=== PATIENT | female | born 1965 | race Caucasian/White ===

== ENCOUNTER 2019-03-31 08:24 | Outpatient (CLI) | payer MEDICARE, MEDICAID, SELFPAY | END 2019-03-31 08:25 | disposition home or self-care (01) | LOC: ONCMED 08:29 | PROVIDERS: Family Provider Family Medicine; PCP Family Medicine; Visit Provider Internal Medicine Medical Oncology | DX: Z45.2 Encounter for adjustment and management of vascular access device (principal) | CPT/HCPCS: 36593; 96374; J2997 ==

== ENCOUNTER 2019-04-30 07:51 | Outpatient (CLI) | payer MEDICARE, MEDICAID, SELFPAY | END 2019-04-30 07:52 | disposition home or self-care (01) | LOC: ONCMED 07:55 | PROVIDERS: Family Provider Family Medicine; PCP Family Medicine; Visit Provider Internal Medicine Medical Oncology | DX: Z45.2 Encounter for adjustment and management of vascular access device (principal) | CPT/HCPCS: 96523 ==

== ENCOUNTER 2019-05-28 08:08 | Outpatient (CLI) | payer MEDICARE, MEDICAID, SELFPAY ==
[2019-05-28] MEDS: alteplase 1 mg/mL SDV 2 mL 2 MG INTRACATH (09:25)
== END 2019-05-28 08:09 | disposition home or self-care (01) ==
LOC: ONCMED 08:16
PROVIDERS: Family Provider Family Medicine; PCP Family Medicine; Visit Provider Internal Medicine Medical Oncology
DX: Z45.2 Encounter for adjustment and management of vascular access device (principal)
CPT/HCPCS: 36593; 96374; 96523; J2997

== ENCOUNTER 2019-07-02 08:29 | Outpatient (CLI) | payer MEDICARE, MEDICAID, SELFPAY | END 2019-07-02 08:30 | disposition home or self-care (01) | LOC: ONCMED 08:29 | PROVIDERS: Family Provider Family Medicine; PCP Family Medicine; Visit Provider Internal Medicine Medical Oncology | DX: Z45.2 Encounter for adjustment and management of vascular access device (principal) | CPT/HCPCS: 96523 ==

== ENCOUNTER 2019-07-30 08:06 | Outpatient (CLI) | payer MEDICARE, MEDICAID, SELFPAY | END 2019-07-30 08:07 | disposition home or self-care (01) | LOC: ONCMED 08:09 | PROVIDERS: PCP Family Medicine; Visit Provider Internal Medicine Medical Oncology | DX: Z45.2 Encounter for adjustment and management of vascular access device (principal); C49.22 Malignant neoplasm of connective and soft tissue of left lower limb, including hip | CPT/HCPCS: 96523 ==

== ENCOUNTER 2019-08-28 08:21 | Outpatient (CLI) | payer MEDICARE, MEDICAID, SELFPAY | END 2019-08-28 08:22 | disposition home or self-care (01) | LOC: ONCMED 08:26 | PROVIDERS: PCP Family Medicine; Visit Provider Internal Medicine Medical Oncology | DX: Z45.2 Encounter for adjustment and management of vascular access device (principal); C49.22 Malignant neoplasm of connective and soft tissue of left lower limb, including hip | CPT/HCPCS: 96523 ==

== ENCOUNTER 2019-09-29 08:22 | Outpatient (CLI) | payer MEDICARE, MEDICAID, SELFPAY | END 2019-09-29 08:23 | disposition home or self-care (01) | LOC: ONCMED 08:25 | PROVIDERS: PCP Family Medicine; Visit Provider Internal Medicine Medical Oncology | DX: C49.22 Malignant neoplasm of connective and soft tissue of left lower limb, including hip (principal); D64.81 Anemia due to antineoplastic chemotherapy; D70.1 Agranulocytosis secondary to cancer chemotherapy; T45.1X5A Adverse effect of antineoplastic and immunosuppressive drugs, initial encounter | CPT/HCPCS: 36593; 96374; J2997 ==

== ENCOUNTER 2019-10-30 08:08 | Outpatient (CLI) | payer MEDICARE, MEDICAID, SELFPAY | END 2019-10-30 08:09 | disposition home or self-care (01) | LOC: ONCMED 08:13 | PROVIDERS: PCP Family Medicine; Visit Provider Internal Medicine Medical Oncology | DX: Z45.2 Encounter for adjustment and management of vascular access device (principal) | CPT/HCPCS: 96523 ==

== ENCOUNTER 2019-12-03 07:42 | Outpatient (CLI) | payer MEDICARE, MEDICAID, SELFPAY ==
[2019-12-03 08:30] LABS: Basophils % 0.5 %; Eosinophils # 0.1 10^3/uL (0.0-0.8); Eosinophils % 1.9 %; Hemoglobin 13.1 g/dL (11.5-15.3); Lymphocytes # 2.4 10^3/uL (0.8-4.8); Lymphocytes % 37.9 %; Mean Corpuscular HGB Conc 32.8 g/dL (30.0-36.0); Mean Corpuscular Hemoglobin 33.2 pg (28.0-34.0); Mean Corpuscular Volume 101.5 fL (81-99); Mean Platelet Volume 9.5 fL (7.4-10.4); Monocytes # 0.5 10^3/uL (0.2-0.9); Monocytes % 7.5 %; Neutrophils # 3.26 10^3/uL (1.8-7.7); Neutrophils % 51.7 %; Nucleated Red Blood Cells % 0 %; Platelet Count 211 10^3/cmm (130-400); Red Blood Count 3.94 10^6/uL (4.1-5.3); Red Cell Distribution Width 13.2 % (12.1-15.1); White Blood Count 6.3 10^3/uL (4.0-10.0)
[2019-12-03 09:01] LABS: Alanine Aminotransferase 15 U/L (0-33); Albumin Level 4.1 g/dL (3.5-5.2); Alkaline Phosphatase 82 IU/L (35-105); Anion Gap 12.8 (5-19); Aspartate Amino Transferase 16 U/L (0-32); Blood Urea Nitrogen 17 mg/dL (6-20); Calcium 8.9 mg/dL (8.5-10.5); Carbon Dioxide 26 mmol/L (22-29); Chloride 104 mmol/L (98-107); Globulin 2.6 g/dL (1.3-4.6); Glomerular Filtration Rate 104.6 mL/min (90-130); Glucose 140 mg/dL (65-115); Osmolality Calculated 287 mOsm/kg (285-295); Potassium 3.8 mmol/L (3.5-5.1); Sodium 139 mmol/L (136-145); Total Bilirubin 0.2 mg/dL (0.15-1.2); Total Protein 6.7 g/dL (6.6-8.7)
--- NOTE | 2019-12-06 11:38 | ONC FU_ITS ---
Dr. Boo Patient Follow-Up Note Patient: Naya Ferguson Unit #: [id number]: 1965 Dicatated By: Surya Boo M.D.Date of Visit:Dec 03, 2019 Onc Med Follow-up/Prog Note Chief Complaint: Breast cancer/Walls sarcoma. 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 She had presented in March 2016 with a lump in her left groin area. She had first become aware of it sometime around the beginning of January. An ultrasound on 03/29/2016 showed an enlarging solid soft tissue nodule in the left groin measuring 5.2 x 3.3 cm. Only a single mass was identified. The appearance was felt to be consistent with hematoma, abnormal lymph node, or thrombosed pseudoaneurysm. She was referred to Dr. Brown. She underwent excisional biopsy of the inguinal mass on 04/12/2016. 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 A staging PET/CT on 04/21/2016 showed evidence of a 7.3 x 5.4 cm seroma in the left inguinal region with minimal postoperative inflammatory FDG uptake. There were no sites of pathologic adenopathy or other metastatic disease identified. MRI of the brain was negative for metastatic disease. She was referred to [facility] for second opinion evaluation. She was seen there by Dr. Sushila Tovar. Their review of the pathology also was felt to be consistent with Walls sarcoma/primitive neuroectodermal tumor. Restaging scans showed no definite evidence of recurrence, but there were findings suspicious for abscess at the biopsy site. She was recommended to undergo chemotherapy with vincristine, doxorubicin, and cyclophosphamide alternating with ifosfamide/etoposide for 10 cycles followed by vincristine, dactinomycin, and cyclophosphamide alternating with ifosfamide/etoposide for an additional 7 cycles, total treatment course to be 17 cycles. It was also recommended that she receive upfront dexrazoxane prophylaxis due to her previous anthracycline therapy. Her baseline echocardiogram was normal with estimated ejection fraction at 60%. She then underwent placement of Port-A-Cath venous access device. She began cycle 1 of chemotherapy with Vincristine, doxorubicin and cyclophosphamide on 05/23/2016. She did receive Neulasta prophylactically. Her treatment was complicated by neutropenia and dehydration, but she recovered uneventfully. In the meantime, she had further staging evaluation with MRI of the abdomen/pelvis on 05/31/2016. There were postsurgical changes noted in the left groin. There was no adenopathy and no evidence of other metastatic disease. On 06/11/2016 she began her cycle 2 chemotherapy with 5 days of ifosfamide/mesna and etoposide. It was again complicated by weakness/fatigue, but she otherwise tolerated it well. She received her cycle 3 chemotherapy on 07/02/2016. She was again weak and tired for several days after the treatment and she again became severely neutropenic, but she recovered uneventfully. She also developed significant anemia, hemoglobin dropping to 8.1 g. She did not require transfusion. She was able to continue with her cycle 4 chemotherapy on schedule on 07/23/2016, with cycle 5 on 08/13/2016, and with cycle 6 on 09/03/2016. Restaging CT scans of the chest, abdomen, and pelvis at [facility] on 09/14/2016 showed no evidence of metastatic disease. On 09/26/2016 she underwent radical resection of the left groin. Pathology showed no residual sarcoma. She had a follow-up visit at [facility] on 10/08/2016 and at that point she was released to continue with her 7th cycle of chemotherapy. We had a delay in restarting her treatment due to the unavailability of Zinecard. After further discussion with her oncologist at [facility], we continued her treatment without Zinecard and with Adriamycin administered by 72-hour infusion. She began cycle 7 on 10/30/2016. She had no adverse reactions to the infusion, and she received her cycle 8 treatment on schedule. She began cycle 9 on 12/10/2016. She again experienced no adverse effects with the Adriamycin infusion. However, at day 8 she was severely neutropenic with a total of white blood cell count of 500, ANC 0. Her hemoglobin at that point had dropped to 7.3 g. She received a transfusion of 2 U of irradiated packed red blood cells on 12/18/2016. Following day she presented to the emergency room with severe weakness, fever, and muscle aching. Her ANC was still 0. Her hemoglobin had dropped to 5.4 g. There was no laboratory evidence for hemolysis. She was admitted to the hospital and started broad-spectrum antibiotic coverage. She was transfused an additional 2 U of irradiated packed red blood cells. Her blood cultures remain negative, but her serology for influenza B antigen was positive. Her hemoglobin then stabilized and she had gradual recovery of her neutrophils. She was discharged on 12/22/2016. She continued with her cycle 10 chemotherapy on 01/07/2017. Beginning with cycle 11, she had a planned change in her regimen, substituting dactinomycin for the Adriamycin. She then continued her treatment on schedule, though she continued to have fatigue and some nausea with the chemotherapy. Her treatment also was complicated by anemia, moderately severe neutropenia, and moderate to severe thrombocytopenia. She required transfusion on multiple occasions, at least once or twice each month. She had no further episodes of neutropenic fever, and she had no bleeding complications with the thrombocytopenia. She began her cycle 16 treatment with ifosfamide/mesna and etoposide on 06/03/2017. Her subsequent interim blood counts again showed severe pancytopenia, requiring transfusion of packed red blood cells on 06/11/2017 and on 06/18/2017. She also received a single donor platelet pheresis on 06/15/2017. She was unable to continue with her 17th and final cycle of chemotherapy with VAC on 07/16/2017. She was then followed on observation/expectant management. Her breast cancer was diagnosed in 2006. She had presented at that time with a lump in her left breast. Mammogram showed diffuse increased density in the parenchyma of the left breast throughout the upper outer quadrant. There was no discrete mass noted in that area, but towards the axillary tail there appeared to be a cluster of enlarged lymph nodes which measured approximately 3.6 cm in diameter. There were additional nodes measuring 1.6 and 1.8 cm which were incompletely included at the margin of that study. She underwent excisional biopsy on 06/27/06. Pathology showed grade 2 infiltrating ductal carcinoma which measured 4.2 x 3.1 cm. There was involvement in multiple margins. The tumor was ER positive at 37% and IN positive at 16%. It was negative for overexpression of HER-2/afsaneh by IHC and by FISH. She was then given chemotherapy with 4 cycles of Adriamycin/cyclophosphamide and 4 cycles of Taxotere. She completed chemotherapy in November of 2006. She underwent left modified radical mastectomy in January of 2007. Pathology showed just a few residual foci of infiltrating ductal carcinoma involving lymphatic spaces within the breast, but there was involvement in 3 of 21 axillary lymph nodes. She was given prophylactic chest wall radiation, which she completed in April of 2007 to a total dose of 6000 cGy. She completed 5 years of adjuvant hormonal therapy with tamoxifen in February of 2012. Thus far during followup there has been no evidence of recurrence. Her other medical illnesses include GERD, degenerative arthritis, and depression. She has a history of smoking 1/2 pack of cigarettes daily. She quit smoking in 2004. INTERIM HISTORY: I had seen her for a follow-up visit on 05/28/2018. At that time she had multiple complaints, including pain in the left groin area radiating down the left leg. She also been having frequent headaches. She complained of severe fatigue and poor appetite. Her laboratory studies were unremarkable. Her left hip x-ray showed a subtle lucency overlying the inferior acetabulum and femoral head. She had further evaluation with MRI of the pelvis on 06/11/2018. It showed nonspecific left medial acetabular 6 mm subcortical focal marrow signal abnormality and enhancement of uncertain etiology/significance. There were no definite findings of recurrent or metastatic disease in the pelvis. There was suspected left posterior acetabular labral degeneration with possible tear or fraying. In the meantime, I had opted to treat her empirically with dexamethasone, initially at 4 mg twice a day. During followup she was feeling better. She was then able to gradually taper off dexamethasone. She continued observation/expectant management for the Walls sarcoma. She had follow-up at [facility] in August. Her CT abdomen/pelvis from 08/27/2019 showed no evidence of metastatic disease. She is seen for a scheduled visit. She has been feeling pretty good generally, though lately she has been sleeping more. She attributes it to the hot weather. Her ECOG score is 1. She has good appetite. She has not had fever. She does report having hot flashes and sweating. Recently she has had throbbing pain in her right jaw which comes and goes. She has had occasional sharp pain in her left chest wall. She has occasional shooting pain in the left arm. She has pain in her hands and feet that seems to correlate with weather changes. Last week her right knee locked up and then popped. She has had no problems with it since then. She continues, though, to complain of whole body pain . She has headache which comes and goes. She has no focal neurologic symptoms. Medications: Allergy 1 (4 mg) Tablet Oral daily, Dexilant 1 Capsule (of 20 mg) Capsule Delayed Release Oral daily, Famotidine 1 (20 mg) Tablet Oral b.i.d., Ferrous Sulfate 1 Tablet (of 325 (65 fe) mg) Oral daily, Glucosamine 1 Tablet Oral daily, Hydrocodone-Acetaminophen 1 - 2 Tablet (of 10-325 mg) Oral four times a day PRN, Ibuprofen Tablet Oral PRN, Potassium Chloride ER 1 Capsule (of 20 meq) Capsule, controlled release Oral daily, Simvastatin 1 Tablet (of 20 mg) Oral daily, Venlafaxine HCl 1 Tablet (of 150 mg) Oral daily, Zofran 1 (4 mg) Tablet Oral q 8 hours PRN Allergies: Acyclovir and Alcohol base liquids. Review of Systems: Constitutional - She has been sleeping more lately, but that she attributes to the heat. Appetite is good and weight is stable. No fever. She has hot flashes and sweating. ECOG score is 1, ENMT - She has sinus congestion/drainage. No mouth sores, but recently she has been having throbbing pain in her right jaw which comes and goes. No sore throat or difficulty swallowing, Hematologic/Lymphatic - No abnormal bruising or bleeding, Respiratory - No shortness of breath. No cough or hemoptysis. She has had occasional sharp pain in the left chest wall, Cardiovascular - No angina pain. No palpitations, Gastrointestinal - No nausea or vomiting. She occasionally has heartburn. No diarrhea or constipation. No blood in the stool or black stools, Genitourinary (F) - No dysuria or hematuria. No urinary frequency. No urgency or incontinence, Musculoskeletal - She has occasional shooting pain in her left arm. She has pain in her hands and feet which seems to change with the weather. Recently her right knee locked up and popped. She also has chronic whole body pain , Integumentary - No skin rash, Neurologic - She has headaches, which come and go. She occasionally has lightheadedness. She has numbness/tingling, which comes and goes. No other focal neurologic symptoms, Psychiatric - She has anxiety/depression. She does not sleep well. Vital Signs: Performed on Dec 03, 2019 09:24 Height - 68.00 in Weight - 192.4 lbs (LOW) BSA - 2.01 sq.m BMI - 29.25 Temperature - 96.6 F (LOW) Pulse - 68 /min Respiration - 16 /min BP - 169/86 mm(hg) (HIGH) O2 Sat - 95 % (LOW) Pain - 7 Physical Examination: Constitutional - She looks pretty good generally, Eyes - Sclerae nonicteric. Conjunctivae clear, ENMT - No lesions noted in the oral cavity, Hematologic/Lymphatic - No cervical or clavicular adenopathy, Respiratory - Lungs are clear with good air movement bilaterally, Cardiovascular - Heart rhythm is regular. There is a II/ systolic murmur. There is no gallop or rub noted, Breasts - There are no chest wall lesions noted. There is no axillary adenopathy, Abdomen - Mildly distended but soft. Liver and spleen are not enlarged. There is no abdominal mass or ascites noted. There is no inguinal adenopathy, Extremities - No edema, Neurologic - No focal neurologic deficits noted. Lab/Imaging: Test performed on Dec 03, 2019 08:02 Sodium 139 mmol/L Potassium 3.8 mmol/L Chloride 104 mmol/L CO2 26 mmol/L Anion Gap 12.8 BUN 17 mg/dL Creatinine 0.6 mg/dL Cr Clearance (Est) 149.39 mL/min eGFR 104.6 mL/min Glucose 140 mg/dL Calcium 8.9 mg/dL Protein, Total 6.7 g/dL Albumin 4.1 g/dL Globulin 2.6 g/dL Bilirubin, Total 0.2 mg/dL ALT (SGPT) 15 U/L AST (SGOT) 16 U/L Alkaline Phosphatase 82 IU/L WBC 6.3 10 3/uL RBC 3.94 10 6/uL HGB 13.1 g/dL HCT 40.0 % MCV 101.5 fL MCH 33.2 pg MCHC 32.8 g/dL RDW 13.2 % Platelet Count 211 10 3/cmm MPV 9.5 fL Neutrophils 3.26 10 3/uL Lymphocytes 2.4 10 3/uL Monocytes 0.5 10 3/uL Eosinophils 0.1 10 3/uL Basophils 0.0 10 3/uL Neutrophil % 51.7 % Lymphocyte % 37.9 % Monocyte % 7.5 % Eosinophil % 1.9 % Basophils % 0.5 % NRBC % 0 % Impression: 1. Patient with Walls sarcoma/primitive neuroectodermal tumor diagnosed by excisional biopsy of left inguinal mass on 04/12/2016. Her disease appears to be stage IIA (T1b, N0, M0), with no other sites of involvement by clinical evaluation. She is currently undergoing chemotherapy per recommendations from Dr. Sushila Tovar at [facility]. 2. She has a prior history of grade 2 infiltrating ductal carcinoma the left breast, stage IIB, ER/ IN positive and HER-2/afsaneh negative. 3. Her treatment included excisional biopsy followed by adjuvant chemotherapy with 4 cycles of Adriamycin/cyclophosphamide and 4 cycles of Taxotere, completed in November 2006. She completed prophylactic chest wall radiation following left modified radical mastectomy in January 2007. She completed 5 years of hormonal therapy with tamoxifen in February 2012. Thus far during followup there has been no evidence of recurrence of the breast cancer. Her other medical illness include: 4. GERD. 5. Degenerative arthritis. 6. Depression. She began her 6th cycle of chemotherapy on 09/03/2016. Restaging CT scans of the chest, abdomen, and pelvis on 09/14/2016 showed no evidence of metastatic disease. On 09/26/2016 she underwent radical resection of the left groin area. Pathology showed no residual sarcoma. She had an uneventful recovery from her surgery. Her further chemotherapy was delayed due to unavailability of Zinecard. She began her 7th cycle treatment on 10/30/2016 with the Adriamycin administered by 72-hour infusion. She was then able to continue her further chemotherapy on schedule, but with a planned substitution of actinomycin D for the Adriamycin beginning with cycle 11. Her treatment was complicated by pancytopenia, requiring transfusions of PRBC and/or platelets on multiple occasions. She completed her 17th and final cycle of chemotherapy on 07/16/2017. At her follow-up at [facility] in April 2018 there is reportedly no evidence of recurrence of the Walls sarcoma. She was seen here on 05/28/2018 with complaints of severe pain in the left hip area. She also was having frequent headaches, and she just wasn't feeling good generally. X-ray of the left hip and subsequent MRI of the pelvis showed some nonspecific findings, but no evidence of recurrence of her sarcoma. She had symptomatic improvement on empiric steroid therapy with dexamethasone. During subsequent follow-up she was able to taper off and discontinue the dexamethasone. She has continued on observation/expectant management for the Walls sarcoma. She has continued to have fatigue and musculoskeletal pain following completion of her chemotherapy. There has beeh no evidence, though, of recurrence of the Walls sarcoma, and her overall clincal status appears stable. Plan: She remains on observation/expectant management. If her jaw pain persists I will get x-rays of the mandible. I will otherwise just plan a follow-up visit in February, at which time she will be due for surveillance CT scans. Signed By: Surya Boo M.D. <<Signature on File>>
== END 2019-12-03 07:43 | disposition home or self-care (01) ==
LOC: ONCMED 07:45
PROVIDERS: PCP Family Medicine; Visit Provider Internal Medicine Medical Oncology
DX: Z08 Encounter for follow-up examination after completed treatment for malignant neoplasm (principal); Z85.830 Personal history of malignant neoplasm of bone; Z85.3 Personal history of malignant neoplasm of breast; R68.84 Jaw pain; R53.83 Other fatigue; M79.18 Myalgia, other site; K21.9 Gastro-esophageal reflux disease without esophagitis; M19.90 Unspecified osteoarthritis, unspecified site; F32.9 Major depressive disorder, single episode, unspecified; Z92.21 Personal history of antineoplastic chemotherapy
CPT/HCPCS: 36591; 80053; 85025; G0463

== ENCOUNTER → 2019-12-15 13:20 | Outpatient (BNVA) | payer MEDICARE, MEDICAID, SELFPAY | PROVIDERS: PCP Family Medicine; Visit Provider Nurse Practitioner Family | DX: Z23 Encounter for immunization (principal); Z20.828 Contact with and (suspected) exposure to other viral communicable diseases | CPT/HCPCS: 87635 ==

== ENCOUNTER 2020-01-01 06:53 | Outpatient (CLI) | payer MEDICARE, MEDICAID, SELFPAY | END 2020-01-01 06:54 | disposition home or self-care (01) | LOC: ONCMED 06:55 | PROVIDERS: PCP Nurse Practitioner Family; Visit Provider Internal Medicine Medical Oncology | DX: Z45.2 Encounter for adjustment and management of vascular access device (principal) | CPT/HCPCS: 96523 ==

== ENCOUNTER 2020-01-26 06:09 | Outpatient (CLI) | payer MEDICARE, MEDICAID, SELFPAY | END 2020-01-26 06:10 | disposition home or self-care (01) | LOC: ONCMED 06:11 | PROVIDERS: PCP Nurse Practitioner Family; Visit Provider Nurse Practitioner | DX: Z45.2 Encounter for adjustment and management of vascular access device (principal) | CPT/HCPCS: 96523 ==

== ENCOUNTER 2020-02-25 08:13 | Outpatient (CLI) | payer MEDICARE, MEDICAID, SELFPAY | END 2020-02-25 08:14 | disposition home or self-care (01) | PROVIDERS: PCP Nurse Practitioner Family; Visit Provider Nurse Practitioner | DX: Z45.2 Encounter for adjustment and management of vascular access device (principal) | CPT/HCPCS: 96523 ==

== ENCOUNTER 2020-03-04 11:05 | Outpatient (CLI) | payer MEDICARE, MEDICAID, SELFPAY ==
--- NOTE | 2020-03-04 11:16 | CT_ITS ---
WS: [id number] CT CHEST, ABDOMEN, AND PELVIS TECHNIQUE: Contrast-enhanced CT of the chest, abdomen, and pelvis with coronal and sagittal reformatt ed images. CLINICAL INFORMATION: BREAST CANCER, MONTANEZ SARCOMA COMPARISON: None. DLP: 2501.[address] scans at [facility] use at least one of these dose optimization techniques: automat ed exposure control; mA and/or kV adjustment per patient size (includes targeted exams where dose is matched to clinical indication); or iterative reconstruction. CT CHEST: Both lungs are well aerated. No acute pulmonary infiltrates. No suspicious pulmonary parenchymal opac ities. No focal pneumonia or pleural fluid. No evidence of metastatic disease in the chest. No medias tinal or hilar lymphadenopathy. No axillary lymphadenopathy. Normal caliber thoracic aorta. Proximal main pulmonary arteries are normal. Stable sclerotic focus T6 vertebral body. CT ABDOMEN AND PELVIS: Diffuse fatty infiltration of the liver. Normal portal vein and splenic vein. Normal gallbladder. Nor mal GE junction. Normal spleen. Adrenal glands are normal. Normal renal parenchymal enhancement. No h ydronephrosis. Normal caliber abdominal aorta. No periaortic or retroperitoneal lymphadenopathy. No pelvic lymphaden opathy. Surgical clips in the left groin. No evidence of small or large bowel obstruction. Normal sig moid colon. CT/CT chest abd pel w con* IMPRESSION: 1. No evidence of metastatic disease in the chest abdomen or pelvis. 2. Both lungs are well aerated. 3. Mild diffuse fatty infiltration liver. 4. Stable sclerotic lesion in the T6 vertebral body unchanged.
[2020-03-04] MEDS: iohexol 300 mg/mL 50 mL Btl PO (13:12)
[2020-03-04] MEDS: iohexol 300 mg/mL 100 mL Btl IV (13:16)
== END 2020-03-04 11:06 | disposition home or self-care (01) ==
LOC: RADWPI 11:09
PROVIDERS: PCP Nurse Practitioner Family; Visit Provider Internal Medicine Medical Oncology
DX: C50.412 Malignant neoplasm of upper-outer quadrant of left female breast (principal); C41.9 Malignant neoplasm of bone and articular cartilage, unspecified; K76.0 Fatty (change of) liver, not elsewhere classified
CPT/HCPCS: 71260; 74177; Q9967

== ENCOUNTER → 2020-03-07 14:58 | Outpatient (BNVA) | payer MEDICARE, MEDICAID, SELFPAY | PROVIDERS: PCP Nurse Practitioner Family; Visit Provider Family Medicine | DX: M25.511 Pain in right shoulder (principal) | CPT/HCPCS: 73030 ==

== ENCOUNTER 2020-03-14 06:00 | Outpatient (CLI) | payer MEDICARE, MEDICAID, SELFPAY ==
[2020-03-14 11:01] LABS: Basophils % 0.3 %; Eosinophils # 0.1 10^3/uL (0.0-0.8); Eosinophils % 1.1 %; Hematocrit 40.3 % (37.0-47.0); Hemoglobin 13.4 g/dL (11.5-15.3); Lymphocytes # 2.2 10^3/uL (0.8-4.8); Lymphocytes % 31.9 %; Mean Corpuscular HGB Conc 33.3 g/dL (30.0-36.0); Mean Corpuscular Hemoglobin 33.5 pg (28.0-34.0); Mean Corpuscular Volume 100.8 fL (81-99); Mean Platelet Volume 9.6 fL (7.4-10.4); Monocytes # 0.5 10^3/uL (0.2-0.9); Monocytes % 6.6 %; Neutrophils # 4.17 10^3/uL (1.8-7.7); Neutrophils % 59.8 %; Nucleated Red Blood Cells % 0 %; Platelet Count 237 10^3/cmm (130-400); Red Cell Distribution Width 12.8 % (12.1-15.1)
[2020-03-14 11:08] LABS: Alanine Aminotransferase 14 U/L (0-33); Albumin Level 4.2 g/dL (3.5-5.2); Alkaline Phosphatase 79 IU/L (35-105); Anion Gap 12.9 (5-19); Aspartate Amino Transferase 15 U/L (0-32); Blood Urea Nitrogen 17 mg/dL (6-20); Calcium 9.1 mg/dL (8.5-10.5); Carbon Dioxide 26 mmol/L (22-29); Chloride 104 mmol/L (98-107); Globulin 2.3 g/dL (1.3-4.6); Glomerular Filtration Rate 104.6 mL/min (90-130); Glucose 102 mg/dL (65-115); Osmolality Calculated 290 mOsm/kg (285-295); Potassium 3.9 mmol/L (3.5-5.1); Sodium 139 mmol/L (136-145); Total Bilirubin 0.2 mg/dL (0.15-1.2); Total Protein 6.5 g/dL (6.6-8.7)
--- NOTE | 2020-03-17 08:39 | ONC FU_ITS ---
Dr. Boo Patient Follow-Up Note Patient: Naya Ferguson Unit #: [id number]: 1965 Dicatated By: Surya Boo M.D.Date of Visit:Mar 14, 2020 Onc Med Follow-up/Prog Note Chief Complaint: Breast cancer/Walls sarcoma. 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 She had presented in March 2016 with a lump in her left groin area. She had first become aware of it sometime around the beginning of January. An ultrasound on 03/29/2016 showed an enlarging solid soft tissue nodule in the left groin measuring 5.2 x 3.3 cm. Only a single mass was identified. The appearance was felt to be consistent with hematoma, abnormal lymph node, or thrombosed pseudoaneurysm. She was referred to Dr. Brown. She underwent excisional biopsy of the inguinal mass on 04/12/2016. 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 A staging PET/CT on 04/21/2016 showed evidence of a 7.3 x 5.4 cm seroma in the left inguinal region with minimal postoperative inflammatory FDG uptake. There were no sites of pathologic adenopathy or other metastatic disease identified. MRI of the brain was negative for metastatic disease. She was referred to [facility] for second opinion evaluation. She was seen there by Dr. Sushila Tovar. Their review of the pathology also was felt to be consistent with Walls sarcoma/primitive neuroectodermal tumor. Restaging scans showed no definite evidence of recurrence, but there were findings suspicious for abscess at the biopsy site. She was recommended to undergo chemotherapy with vincristine, doxorubicin, and cyclophosphamide alternating with ifosfamide/etoposide for 10 cycles followed by vincristine, dactinomycin, and cyclophosphamide alternating with ifosfamide/etoposide for an additional 7 cycles, total treatment course to be 17 cycles. It was also recommended that she receive upfront dexrazoxane prophylaxis due to her previous anthracycline therapy. Her baseline echocardiogram was normal with estimated ejection fraction at 60%. She then underwent placement of Port-A-Cath venous access device. She began cycle 1 of chemotherapy with Vincristine, doxorubicin and cyclophosphamide on 05/23/2016. She did receive Neulasta prophylactically. Her treatment was complicated by neutropenia and dehydration, but she recovered uneventfully. In the meantime, she had further staging evaluation with MRI of the abdomen/pelvis on 05/31/2016. There were postsurgical changes noted in the left groin. There was no adenopathy and no evidence of other metastatic disease. On 06/11/2016 she began her cycle 2 chemotherapy with 5 days of ifosfamide/mesna and etoposide. It was again complicated by weakness/fatigue, but she otherwise tolerated it well. She received her cycle 3 chemotherapy on 07/02/2016. She was again weak and tired for several days after the treatment and she again became severely neutropenic, but she recovered uneventfully. She also developed significant anemia, hemoglobin dropping to 8.1 g. She did not require transfusion. She was able to continue with her cycle 4 chemotherapy on schedule on 07/23/2016, with cycle 5 on 08/13/2016, and with cycle 6 on 09/03/2016. Restaging CT scans of the chest, abdomen, and pelvis at [facility] on 09/14/2016 showed no evidence of metastatic disease. On 09/26/2016 she underwent radical resection of the left groin. Pathology showed no residual sarcoma. She had a follow-up visit at [facility] on 10/08/2016 and at that point she was released to continue with her 7th cycle of chemotherapy. We had a delay in restarting her treatment due to the unavailability of Zinecard. After further discussion with her oncologist at [facility], we continued her treatment without Zinecard and with Adriamycin administered by 72-hour infusion. She began cycle 7 on 10/30/2016. She had no adverse reactions to the infusion, and she received her cycle 8 treatment on schedule. She began cycle 9 on 12/10/2016. She again experienced no adverse effects with the Adriamycin infusion. However, at day 8 she was severely neutropenic with a total of white blood cell count of 500, ANC 0. Her hemoglobin at that point had dropped to 7.3 g. She received a transfusion of 2 U of irradiated packed red blood cells on 12/18/2016. Following day she presented to the emergency room with severe weakness, fever, and muscle aching. Her ANC was still 0. Her hemoglobin had dropped to 5.4 g. There was no laboratory evidence for hemolysis. She was admitted to the hospital and started broad-spectrum antibiotic coverage. She was transfused an additional 2 U of irradiated packed red blood cells. Her blood cultures remain negative, but her serology for influenza B antigen was positive. Her hemoglobin then stabilized and she had gradual recovery of her neutrophils. She was discharged on 12/22/2016. She continued with her cycle 10 chemotherapy on 01/07/2017. Beginning with cycle 11, she had a planned change in her regimen, substituting dactinomycin for the Adriamycin. She then continued her treatment on schedule, though she continued to have fatigue and some nausea with the chemotherapy. Her treatment also was complicated by anemia, moderately severe neutropenia, and moderate to severe thrombocytopenia. She required transfusion on multiple occasions, at least once or twice each month. She had no further episodes of neutropenic fever, and she had no bleeding complications with the thrombocytopenia. She began her cycle 16 treatment with ifosfamide/mesna and etoposide on 06/03/2017. Her subsequent interim blood counts again showed severe pancytopenia, requiring transfusion of packed red blood cells on 06/11/2017 and on 06/18/2017. She also received a single donor platelet pheresis on 06/15/2017. She was unable to continue with her 17th and final cycle of chemotherapy with VAC on 07/16/2017. She was then followed on observation/expectant management. Her breast cancer was diagnosed in 2006. She had presented at that time with a lump in her left breast. Mammogram showed diffuse increased density in the parenchyma of the left breast throughout the upper outer quadrant. There was no discrete mass noted in that area, but towards the axillary tail there appeared to be a cluster of enlarged lymph nodes which measured approximately 3.6 cm in diameter. There were additional nodes measuring 1.6 and 1.8 cm which were incompletely included at the margin of that study. She underwent excisional biopsy on 06/27/06. Pathology showed grade 2 infiltrating ductal carcinoma which measured 4.2 x 3.1 cm. There was involvement in multiple margins. The tumor was ER positive at 37% and DE positive at 16%. It was negative for overexpression of HER-2/afsaneh by IHC and by FISH. She was then given chemotherapy with 4 cycles of Adriamycin/cyclophosphamide and 4 cycles of Taxotere. She completed chemotherapy in November of 2006. She underwent left modified radical mastectomy in January of 2007. Pathology showed just a few residual foci of infiltrating ductal carcinoma involving lymphatic spaces within the breast, but there was involvement in 3 of 21 axillary lymph nodes. She was given prophylactic chest wall radiation, which she completed in April of 2007 to a total dose of 6000 cGy. She completed 5 years of adjuvant hormonal therapy with tamoxifen in February of 2012. Thus far during followup there has been no evidence of recurrence. Her other medical illnesses include GERD, degenerative arthritis, and depression. She has a history of smoking 1/2 pack of cigarettes daily. She quit smoking in 2004. INTERIM HISTORY: I had seen her for a follow-up visit on 05/28/2018. At that time she had multiple complaints, including pain in the left groin area radiating down the left leg. She also been having frequent headaches. She complained of severe fatigue and poor appetite. Her laboratory studies were unremarkable. Her left hip x-ray showed a subtle lucency overlying the inferior acetabulum and femoral head. She had further evaluation with MRI of the pelvis on 06/11/2018. It showed nonspecific left medial acetabular 6 mm subcortical focal marrow signal abnormality and enhancement of uncertain etiology/significance. There were no definite findings of recurrent or metastatic disease in the pelvis. There was suspected left posterior acetabular labral degeneration with possible tear or fraying. In the meantime, I had opted to treat her empirically with dexamethasone, initially at 4 mg twice a day. During followup she was feeling better. She was then able to gradually taper off dexamethasone. She continued observation/expectant management for the Walls sarcoma. She had follow-up at [facility] in August 2019. Her CT abdomen/pelvis from 08/27/2019 showed no evidence of metastatic disease. She continued observation/expectant management. She is seen for a scheduled visit. She has been feeling pretty good generally, though she does have some fatigue. Her ECOG score is 1. She has good appetite. She has not had fever, night sweats, or hot flashes. She has no shortness of breath, cough, or chest pain. She has no GI or complaints. She has been having pain in her right shoulder and arm. She continues to have generalized whole body pain. She has numbness in her right arm, her left hand, and her knees. Medications: Allergy 1 (4 mg) Tablet Oral daily, Dexilant 1 Capsule (of 20 mg) Capsule Delayed Release Oral daily, Famotidine 1 (20 mg) Tablet Oral b.i.d., Ferrous Sulfate 1 Tablet (of 325 (65 fe) mg) Oral daily, Glucosamine 1 Tablet Oral daily, Hydrocodone-Acetaminophen 1 - 2 Tablet (of 10-325 mg) Oral four times a day PRN, Ibuprofen Tablet Oral PRN, Potassium Chloride ER 1 Capsule (of 20 meq) Capsule, controlled release Oral daily, Simvastatin 1 Tablet (of 20 mg) Oral daily, Venlafaxine HCl 1 Tablet (of 150 mg) Oral daily, Zofran 1 (4 mg) Tablet Oral q 8 hours PRN Allergies: Acyclovir and Alcohol base liquids. Review of Systems: Constitutional - Her energy has been pretty good. Appetite is good and weight is stable. No fever, night sweats, or hot flashes. ECOG score is 1, ENMT - No sinus congestion/drainage. No mouth sores. No sore throat or difficulty swallowing, Hematologic/Lymphatic - No abnormal bruising or bleeding, Respiratory - No shortness of breath. No cough. No pleuritic pain or hemoptysis, Cardiovascular - No angina pain. No palpitations, Gastrointestinal - No nausea or vomiting. No heartburn or acid reflux. No diarrhea or constipation. No blood in the stool or black stools, Genitourinary (F) - No dysuria or hematuria. No urinary frequency. No urgency or incontinence, Musculoskeletal - She has been having pain in her right shoulder and arm. She also complains that her whole body aches, especially her hips and knees, Integumentary - No skin rash, Neurologic - No headache or dizziness. She has numbness in her right arm, knees, and left hand. No other focal neurologic symptoms, Psychiatric - She has anxiety/depression. She has insomnia. Vital Signs: Performed on Mar 14, 2020 11:21 Height - 68.00 in Weight - 195.2 lbs (HIGH) BSA - 2.02 sq.m BMI - 29.68 Temperature - 97.6 F (LOW) Pulse - 77 /min Respiration - 16 /min BP - 180/88 mm(hg) (HIGH) O2 Sat - 95 % (LOW) Pain - 5 Physical Examination: Constitutional - She looks pretty good generally, Eyes - Sclerae nonicteric. Conjunctivae clear, ENMT - No lesions noted in the oral cavity, Hematologic/Lymphatic - No cervical, clavicular, or axillary adenopathy, Respiratory - Lungs are clear with good air movement bilaterally, Cardiovascular - Heart rhythm is regular. There is a II/ systolic murmur. There is no gallop or rub noted, Abdomen - Soft. Liver and spleen are not enlarged. There is no abdominal mass or ascites noted. There is no inguinal adenopathy, Extremities - No edema. There is limited range of motion at the right shoulder joint, Neurologic - No focal neurologic deficits noted. Lab/Imaging: Test performed on Mar 14, 2020 10:34 Sodium 139 mmol/L Potassium 3.9 mmol/L Chloride 104 mmol/L CO2 26 mmol/L Anion Gap 12.9 BUN 17 mg/dL Creatinine 0.6 mg/dL Cr Clearance (Est) 151.57 mL/min eGFR 104.6 mL/min Glucose 102 mg/dL Osmolality - Calculated 290 mOsm/kg Calcium 9.1 mg/dL Protein, Total 6.5 g/dL Albumin 4.2 g/dL Globulin 2.3 g/dL Bilirubin, Total 0.2 mg/dL ALT (SGPT) 14 U/L AST (SGOT) 15 U/L Alkaline Phosphatase 79 IU/L WBC 7.0 10 3/uL RBC 4.00 10 6/uL HGB 13.4 g/dL HCT 40.3 % MCV 100.8 fL MCH 33.5 pg MCHC 33.3 g/dL RDW 12.8 % Platelet Count 237 10 3/cmm MPV 9.6 fL Neutrophils 4.17 10 3/uL Lymphocytes 2.2 10 3/uL Monocytes 0.5 10 3/uL Eosinophils 0.1 10 3/uL Basophils 0.0 10 3/uL Neutrophil % 59.8 % Lymphocyte % 31.9 % Monocyte % 6.6 % Eosinophil % 1.1 % Basophils % 0.3 % NRBC % 0 % Impression: 1. Patient with Walls sarcoma/primitive neuroectodermal tumor diagnosed by excisional biopsy of left inguinal mass on 04/12/2016. Her disease appears to be stage IIA (T1b, N0, M0), with no other sites of involvement by clinical evaluation. She is currently undergoing chemotherapy per recommendations from Dr. Sushila Tovar at [facility]. 2. She has a prior history of grade 2 infiltrating ductal carcinoma the left breast, stage IIB, ER/ DE positive and HER-2/afsaneh negative. 3. Her treatment included excisional biopsy followed by adjuvant chemotherapy with 4 cycles of Adriamycin/cyclophosphamide and 4 cycles of Taxotere, completed in November 2006. She completed prophylactic chest wall radiation following left modified radical mastectomy in January 2007. She completed 5 years of hormonal therapy with tamoxifen in February 2012. Thus far during followup there has been no evidence of recurrence of the breast cancer. Her other medical illness include: 4. GERD. 5. Degenerative arthritis. 6. Depression. She began her 6th cycle of chemotherapy on 09/03/2016. Restaging CT scans of the chest, abdomen, and pelvis on 09/14/2016 showed no evidence of metastatic disease. On 09/26/2016 she underwent radical resection of the left groin area. Pathology showed no residual sarcoma. She had an uneventful recovery from her surgery. Her further chemotherapy was delayed due to unavailability of Zinecard. She began her 7th cycle treatment on 10/30/2016 with the Adriamycin administered by 72-hour infusion. She was then able to continue her further chemotherapy on schedule, but with a planned substitution of actinomycin D for the Adriamycin beginning with cycle 11. Her treatment was complicated by pancytopenia, requiring transfusions of PRBC and/or platelets on multiple occasions. She completed her 17th and final cycle of chemotherapy on 07/16/2017. At her follow-up at [facility] in April 2018 there is reportedly no evidence of recurrence of the Walls sarcoma. She was seen here on 05/28/2018 with complaints of severe pain in the left hip area. She also was having frequent headaches, and she just wasn't feeling good generally. X-ray of the left hip and subsequent MRI of the pelvis showed some nonspecific findings, but no evidence of recurrence of her sarcoma. She had symptomatic improvement on empiric steroid therapy with dexamethasone. During subsequent follow-up she was able to taper off and discontinue the dexamethasone. She has continued on observation/expectant management for the Walls sarcoma. She has continued to have fatigue and musculoskeletal pain following completion of her chemotherapy. She recently has had new pain in her right shoulder and arm, and she does have limited range of motion at the shoulder joint. However, there has been no evidence of recurrence of the Walls sarcoma or the breast cancer. Plan: She remains on observation/expectant management. Her medications remain the same. I will see her again in 3 months. Signed By: Surya Boo M.D. <<Signature on File>>
== END 2020-03-14 06:01 | disposition home or self-care (01) ==
LOC: ONCMED 06:04
PROVIDERS: PCP Family Medicine; Visit Provider Internal Medicine Medical Oncology
DX: C49.22 Malignant neoplasm of connective and soft tissue of left lower limb, including hip (principal); K21.9 Gastro-esophageal reflux disease without esophagitis; M19.90 Unspecified osteoarthritis, unspecified site; F32.9 Major depressive disorder, single episode, unspecified; Z85.3 Personal history of malignant neoplasm of breast; Z92.21 Personal history of antineoplastic chemotherapy; Z79.52 Long term (current) use of systemic steroids; Z79.899 Other long term (current) drug therapy
CPT/HCPCS: 36591; 80053; 85025; G0463

== ENCOUNTER 2020-03-15 06:00 | Outpatient (RCR) | payer MEDICARE, MEDICAID, SELFPAY | END 2020-03-24 23:59 | disposition home or self-care (01) | LOC: GPT 06:00 | PROVIDERS: PCP Family Medicine; Referring Provider Family Medicine; Visit Provider Family Medicine | DX: M25.511 Pain in right shoulder (principal); Z90.13 Acquired absence of bilateral breasts and nipples | CPT/HCPCS: 97032; 97110; 97161; 97530 ==

== ENCOUNTER 2020-03-25 06:00 | Outpatient (RCR) | payer MEDICARE, MEDICAID, SELFPAY | END 2020-04-24 23:59 | disposition home or self-care (01) | LOC: GPT 06:00 | PROVIDERS: PCP Family Medicine; Referring Provider Family Medicine; Visit Provider Family Medicine | DX: M25.511 Pain in right shoulder (principal); Z90.13 Acquired absence of bilateral breasts and nipples | CPT/HCPCS: 97032; 97110; 97140; 97530 ==

== ENCOUNTER 2020-03-30 08:16 | Outpatient (CLI) | payer MEDICARE, MEDICAID, SELFPAY | END 2020-03-30 08:17 | disposition home or self-care (01) | PROVIDERS: PCP Family Medicine; Visit Provider Internal Medicine Medical Oncology | DX: Z45.2 Encounter for adjustment and management of vascular access device (principal); C49.22 Malignant neoplasm of connective and soft tissue of left lower limb, including hip; Z85.3 Personal history of malignant neoplasm of breast; Z79.52 Long term (current) use of systemic steroids; Z92.3 Personal history of irradiation | CPT/HCPCS: 96374; J2997 ==

== ENCOUNTER 2020-04-25 06:00 | Outpatient (RCR) | payer MEDICARE, MEDICAID, SELFPAY | END 2020-05-22 23:59 | disposition home or self-care (01) | LOC: GPT 06:00 | PROVIDERS: PCP Family Medicine; Referring Provider Family Medicine; Visit Provider Family Medicine | DX: M25.511 Pain in right shoulder (principal); Z90.13 Acquired absence of bilateral breasts and nipples | CPT/HCPCS: 97110; 97140; 97164; 97530 ==

== ENCOUNTER 2020-04-29 08:08 | Outpatient (CLI) | payer MEDICARE, MEDICAID, SELFPAY | END 2020-04-29 08:09 | disposition home or self-care (01) | LOC: ONCMED 08:11 | PROVIDERS: PCP Family Medicine; Visit Provider Internal Medicine Medical Oncology | DX: Z45.2 Encounter for adjustment and management of vascular access device (principal) | CPT/HCPCS: 96523 ==

== ENCOUNTER 2020-05-23 06:00 | Outpatient (RCR) | payer MEDICARE, MEDICAID, SELFPAY | END 2020-06-22 23:59 | disposition home or self-care (01) | LOC: GPT 06:00 | PROVIDERS: PCP Family Medicine; Referring Provider Family Medicine; Visit Provider Family Medicine | DX: M25.511 Pain in right shoulder (principal); Z90.13 Acquired absence of bilateral breasts and nipples | CPT/HCPCS: 97110; 97530 ==

== ENCOUNTER 2020-06-13 10:59 | Outpatient (CLI) | payer MEDICARE, MEDICAID, SELFPAY ==
[2020-06-13 12:09] LABS: Basophils % 0.4 %; Eosinophils # 0.1 10^3/uL (0.0-0.8); Eosinophils % 1.1 %; Hematocrit 40.1 % (37.0-47.0); Hemoglobin 13.3 g/dL (11.5-15.3); Lymphocytes # 2.1 10^3/uL (0.8-4.8); Lymphocytes % 29.8 %; Mean Corpuscular HGB Conc 33.2 g/dL (30.0-36.0); Mean Corpuscular Hemoglobin 33.5 pg (28.0-34.0); Mean Platelet Volume 10.1 fL (7.4-10.4); Monocytes # 0.4 10^3/uL (0.2-0.9); Monocytes % 5.3 %; Neutrophils # 4.49 10^3/uL (1.8-7.7); Neutrophils % 63.3 %; Nucleated Red Blood Cells % 0 %; Platelet Count 211 10^3/cmm (130-400); Red Blood Count 3.97 10^6/uL (4.1-5.3); Red Cell Distribution Width 12.4 % (12.1-15.1); White Blood Count 7.1 10^3/uL (4.0-10.0)
[2020-06-13 12:33] LABS: Alanine Aminotransferase 12 U/L (0-33); Albumin Level 4.3 g/dL (3.5-5.2); Alkaline Phosphatase 74 IU/L (35-105); Aspartate Amino Transferase 16 U/L (0-32); Blood Urea Nitrogen 15 mg/dL (6-20); Calcium 9.5 mg/dL (8.5-10.5); Carbon Dioxide 27 mmol/L (22-29); Chloride 106 mmol/L (98-107); Globulin 2.6 g/dL (1.3-4.6); Glomerular Filtration Rate 129.1 mL/min (90-130); Glucose 101 mg/dL (65-115); Osmolality Calculated 295 mOsm/kg (285-295); Sodium 142 mmol/L (136-145); Total Bilirubin 0.3 mg/dL (0.15-1.2); Total Protein 6.9 g/dL (6.6-8.7)
[2020-06-13 14:09] LABS: Anion Gap 16.9 (5-19); Potassium 3.9 mmol/L (3.5-5.1)
--- NOTE | 2020-06-13 21:26 | ONC FU_ITS ---
Shreya Dooley Patient Note Patient: Naya Ferguson Unit #: [id number]: 1965 Dictated By: Donell ValdesDate of Visit: Jun 13, 2020 Onc MED Follow-Up/Prog Note Chief Complaint: Breast cancer/Walls sarcoma. 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 She had presented in March 2016 with a lump in her left groin area. She had first become aware of it sometime around the beginning of January. An ultrasound on 03/29/2016 showed an enlarging solid soft tissue nodule in the left groin measuring 5.2 x 3.3 cm. Only a single mass was identified. The appearance was felt to be consistent with hematoma, abnormal lymph node, or thrombosed pseudoaneurysm. She was referred to Dr. Brown. She underwent excisional biopsy of the inguinal mass on 04/12/2016. 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 A staging PET/CT on 04/21/2016 showed evidence of a 7.3 x 5.4 cm seroma in the left inguinal region with minimal postoperative inflammatory FDG uptake. There were no sites of pathologic adenopathy or other metastatic disease identified. MRI of the brain was negative for metastatic disease. She was referred to [facility] for second opinion evaluation. She was seen there by Dr. Sushila Tovar. Their review of the pathology also was felt to be consistent with Walls sarcoma/primitive neuroectodermal tumor. Restaging scans showed no definite evidence of recurrence, but there were findings suspicious for abscess at the biopsy site. She was recommended to undergo chemotherapy with vincristine, doxorubicin, and cyclophosphamide alternating with ifosfamide/etoposide for 10 cycles followed by vincristine, dactinomycin, and cyclophosphamide alternating with ifosfamide/etoposide for an additional 7 cycles, total treatment course to be 17 cycles. It was also recommended that she receive upfront dexrazoxane prophylaxis due to her previous anthracycline therapy. Her baseline echocardiogram was normal with estimated ejection fraction at 60%. She then underwent placement of Port-A-Cath venous access device. She began cycle 1 of chemotherapy with Vincristine, doxorubicin and cyclophosphamide on 05/23/2016. She did receive Neulasta prophylactically. Her treatment was complicated by neutropenia and dehydration, but she recovered uneventfully. In the meantime, she had further staging evaluation with MRI of the abdomen/pelvis on 05/31/2016. There were postsurgical changes noted in the left groin. There was no adenopathy and no evidence of other metastatic disease. On 06/11/2016 she began her cycle 2 chemotherapy with 5 days of ifosfamide/mesna and etoposide. It was again complicated by weakness/fatigue, but she otherwise tolerated it well. She received her cycle 3 chemotherapy on 07/02/2016. She was again weak and tired for several days after the treatment and she again became severely neutropenic, but she recovered uneventfully. She also developed significant anemia, hemoglobin dropping to 8.1 g. She did not require transfusion. She was able to continue with her cycle 4 chemotherapy on schedule on 07/23/2016, with cycle 5 on 08/13/2016, and with cycle 6 on 09/03/2016. Restaging CT scans of the chest, abdomen, and pelvis at [facility] on 09/14/2016 showed no evidence of metastatic disease. On 09/26/2016 she underwent radical resection of the left groin. Pathology showed no residual sarcoma. She had a follow-up visit at [facility] on 10/08/2016 and at that point she was released to continue with her 7th cycle of chemotherapy. We had a delay in restarting her treatment due to the unavailability of Zinecard. After further discussion with her oncologist at [facility], we continued her treatment without Zinecard and with Adriamycin administered by 72-hour infusion. She began cycle 7 on 10/30/2016. She had no adverse reactions to the infusion, and she received her cycle 8 treatment on schedule. She began cycle 9 on 12/10/2016. She again experienced no adverse effects with the Adriamycin infusion. However, at day 8 she was severely neutropenic with a total of white blood cell count of 500, ANC 0. Her hemoglobin at that point had dropped to 7.3 g. She received a transfusion of 2 U of irradiated packed red blood cells on 12/18/2016. Following day she presented to the emergency room with severe weakness, fever, and muscle aching. Her ANC was still 0. Her hemoglobin had dropped to 5.4 g. There was no laboratory evidence for hemolysis. She was admitted to the hospital and started broad-spectrum antibiotic coverage. She was transfused an additional 2 U of irradiated packed red blood cells. Her blood cultures remain negative, but her serology for influenza B antigen was positive. Her hemoglobin then stabilized and she had gradual recovery of her neutrophils. She was discharged on 12/22/2016. She continued with her cycle 10 chemotherapy on 01/07/2017. Beginning with cycle 11, she had a planned change in her regimen, substituting dactinomycin for the Adriamycin. She then continued her treatment on schedule, though she continued to have fatigue and some nausea with the chemotherapy. Her treatment also was complicated by anemia, moderately severe neutropenia, and moderate to severe thrombocytopenia. She required transfusion on multiple occasions, at least once or twice each month. She had no further episodes of neutropenic fever, and she had no bleeding complications with the thrombocytopenia. She began her cycle 16 treatment with ifosfamide/mesna and etoposide on 06/03/2017. Her subsequent interim blood counts again showed severe pancytopenia, requiring transfusion of packed red blood cells on 06/11/2017 and on 06/18/2017. She also received a single donor platelet pheresis on 06/15/2017. She was unable to continue with her 17th and final cycle of chemotherapy with VAC on 07/16/2017. She was then followed on observation/expectant management. Her breast cancer was diagnosed in 2006. She had presented at that time with a lump in her left breast. Mammogram showed diffuse increased density in the parenchyma of the left breast throughout the upper outer quadrant. There was no discrete mass noted in that area, but towards the axillary tail there appeared to be a cluster of enlarged lymph nodes which measured approximately 3.6 cm in diameter. There were additional nodes measuring 1.6 and 1.8 cm which were incompletely included at the margin of that study. She underwent excisional biopsy on 06/27/06. Pathology showed grade 2 infiltrating ductal carcinoma which measured 4.2 x 3.1 cm. There was involvement in multiple margins. The tumor was ER positive at 37% and TN positive at 16%. It was negative for overexpression of HER-2/afsaneh by IHC and by FISH. She was then given chemotherapy with 4 cycles of Adriamycin/cyclophosphamide and 4 cycles of Taxotere. She completed chemotherapy in November of 2006. She underwent left modified radical mastectomy in January of 2007. Pathology showed just a few residual foci of infiltrating ductal carcinoma involving lymphatic spaces within the breast, but there was involvement in 3 of 21 axillary lymph nodes. She was given prophylactic chest wall radiation, which she completed in April of 2007 to a total dose of 6000 cGy. She completed 5 years of adjuvant hormonal therapy with tamoxifen in February of 2012. Thus far during followup there has been no evidence of recurrence. Her other medical illnesses include GERD, degenerative arthritis, and depression. She has a history of smoking 1/2 pack of cigarettes daily. She quit smoking in 2004. INTERIM HISTORY: Dr Boo had seen her for a follow-up visit on 05/28/2018. At that time she had multiple complaints, including pain in the left groin area radiating down the left leg. She also been having frequent headaches. She complained of severe fatigue and poor appetite. Her laboratory studies were unremarkable. Her left hip x-ray showed a subtle lucency overlying the inferior acetabulum and femoral head. She had further evaluation with MRI of the pelvis on 06/11/2018. It showed nonspecific left medial acetabular 6 mm subcortical focal marrow signal abnormality and enhancement of uncertain etiology/significance. There were no definite findings of recurrent or metastatic disease in the pelvis. There was suspected left posterior acetabular labral degeneration with possible tear or fraying. In the meantime, Dr Boo had opted to treat her empirically with dexamethasone, initially at 4 mg twice a day. During followup she was feeling better. She was then able to gradually taper off dexamethasone. She continued observation/expectant management for the Walls sarcoma. She had follow-up at [facility] in August 2019. Her CT abdomen/pelvis from 08/27/2019 showed no evidence of metastatic disease. She has continued observation/expectant management. Mrs. Ferguson is here today for follow-up. She has no new concerns. She continues to have right shoulder pain which is chronic. She states she is planning to use a TENS unit for treatment of her pain is this worked really well in physical therapy. She denies any fever or chills. She denies any trouble swallowing. Her appetite is good energy is fair. She does tire easily but states she recovers well with rest. She is able to take her 4-year-old grandson with her to [employer] over the weekend and she was able to keep up with him. She states her pain is relatively well controlled with the hydrocodone 12/25/2024 she takes up to 2 4 times a day. She states she does not want change her pain medication right now as she thinks this is working okay for her. It does not completely control the pain but she states it makes it tolerable and she can certainly handle that. She denies any nausea or vomiting. She denies any diarrhea or constipation. She states she has had some burning in the peritoneum/vagina after intercourse with her . She states he has been having problems with a lot of frequent UTIs. She denies any urinary hesitancy or burning. She states that her family doctor had given her some cream for this problem before and that has worked well. She states Monistat [id number]-[id number] seems to work well also. She denies any hematuria. She is had no vaginal bleeding. She denies any lower extremity edema. She denies any orthopnea or chest discomfort. Her ECOG is 0. Past Medical History: Hypertension Past Surgical History: Bone marrow aspiration/biopsy D&C Tubal ligation Flu vacciine in 2019 - Pt stated she got flu shot in [facility] 12/24/18 in left deltoid./lc Knot removal from left lower abdomen in 2016 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 in 2017 - Dr. Adriano Mai Right subclavian venous access device-DR Brown in 2017 Knot removal from left lower abdomen in 2016 Right wrist in 2012 Mastectomy in 2008 - right Port removal in 2008 Mastectomy in 2007 - left Port placement in 2006 C section in 2003 Caesarean section in 1992 Allergies: Acyclovir and Alcohol base liquids. Medications: Allergy 1 (4 mg) Tablet Oral daily Dexilant 1 Capsule (of 20 mg) Capsule Delayed Release Oral daily Famotidine 1 (20 mg) Tablet Oral b.i.d. Ferrous Sulfate 1 Tablet (of 325 (65 fe) mg) Oral daily Glucosamine 1 Tablet Oral daily Hydrocodone-Acetaminophen 1 - 2 Tablet (of 10-325 mg) Oral four times a day PRN Ibuprofen Tablet Oral PRN Potassium Chloride ER 1 Capsule (of 20 meq) Capsule, controlled release Oral daily Simvastatin 1 Tablet (of 20 mg) Oral daily Venlafaxine HCl 1 Tablet (of 150 mg) Oral daily Zofran 1 (4 mg) Tablet Oral q 8 hours PRN Family History: Ms. Ferguson's mother is : ovarian cancer. Ms. Ferguson's father is . Social History: Ms. Ferguson is and she is unemployed. She is a daily smoker who has smoked 0.5 packs/day for 42 years. She has no history of drinking. Ms. Ferguson reports the following support systems: lives alone, lives in own house, supportive family/friends willing to assist with needs, and adequate transportation available for expected visits. Her diet consists of regular meals. She indicates her activity level as: daily activities. Review Of Symptoms: Constitutional Denies fevers, night sweats. Mild fatigue. Allergic/Immunologic Seasonal allergies but controlled with OTC antihistamines. Eyes Denies significant visual changes. ENMT Denies sore throat, mouth sores, difficulty or changes in swallowing ability, and/or sinus drainage. Hematologic/Lymphatic Denies easy bruising or bleeding. The patient denies any tender or palpable lymph nodes. Breasts no concerns. Respiratory Denies dyspnea on exertion, chest pain, cough. Cardiovascular Denies anginal chest pain. Gastrointestinal Denies nausea, vomiting, diarrhea, heartburn, or constipation. S Genitourinary (F) No hematuria, hesitancy, incontinence, vaginal bleeding, discharge or other problems with urination. Musculoskeletal Chronic right shoulder pain, no change. Integumentary Denies chronic rashes, inflammation. Neurologic Denies headache, blurred vision. Psychiatric Depression, anxiety, insomnia. Vital Signs: Performed on Jun 13, 2020 13:26 Height - 68.00 in Weight - 191.6 lbs (LOW) BSA - 2.01 sq.m BMI - 29.13 Temperature - 97.9 F (LOW) Pulse - 88 /min Respiration - 18 /min BP - 176/88 mm(hg) (HIGH) O2 Sat - 97 % Pain - 3 Fatigue - 2,0 - Fully active, able to carry on all predisease activities without restrictions. (ECOG) Physical Examination: Constitutional Alert, oriented, no acute distress. Skin pink, warm and dry. Head Normocephalic; atraumatic. Eyes Conjunctivae and sclerae are clear and without icterus. Pupils are reactive and equal. Neck Supple without masses or thyromegaly. No jugular venous distension. Hematologic/Lymphatic No petechiae or purpura. No tender or palpable lymph nodes in the cervical or supraclavicular area. Respiratory Lungs are clear to auscultation without rhonchi or wheezing. Cardiovascular Regular rate and rhythm of heart with soft systolic murmur, but no clicks, gallops or rubs. Abdomen Non-tender, non-distended, no masses, ascites. Good bowel sounds noted in all quads. No guarding or rebound tenderness. No pulsatile masses. Back/Spine Non-tender to palpation. Extremities No visible deformities, no cyanosis, clubbing or edema. Pulses 4+ and equal bilaterally. Musculoskeletal No tenderness or swelling, normal range of motion without obvious weakness. Some slight limitations in right shoulder mobility due to pain. Integumentary No rashes or lesions. Neurologic No sensory or motor deficits, normal cerebellar function, normal gait. Psychiatric Alert and oriented times three. Coherent speech. Verbalizes understanding of our discussions today. Laboratory:Test performed on Jun 13, 2020 11:22 Sodium 142 mmol/L Potassium 3.9 mmol/L Chloride 106 mmol/L CO2 27 mmol/L Anion Gap 16.9 BUN 15 mg/dL Creatinine 0.5 mg/dL Cr Clearance (Est) 178.53 mL/min eGFR 129.1 mL/min Glucose 101 mg/dL Osmolality - Calculated 295 mOsm/kg Calcium 9.5 mg/dL Protein, Total 6.9 g/dL Albumin 4.3 g/dL Globulin 2.6 g/dL Bilirubin, Total 0.3 mg/dL ALT (SGPT) 12 U/L AST (SGOT) 16 U/L Alkaline Phosphatase 74 IU/L WBC 7.1 10 3/uL RBC 3.97 10 6/uL HGB 13.3 g/dL HCT 40.1 % MCV 101.0 fL MCH 33.5 pg MCHC 33.2 g/dL RDW 12.4 % Platelet Count 211 10 3/cmm MPV 10.1 fL Neutrophils 4.49 10 3/uL Lymphocytes 2.1 10 3/uL Monocytes 0.4 10 3/uL Eosinophils 0.1 10 3/uL Basophils 0.0 10 3/uL Neutrophil % 63.3 % Lymphocyte % 29.8 % Monocyte % 5.3 % Eosinophil % 1.1 % Basophils % 0.4 % NRBC % 0 % Impression: 1. Patient with Walls sarcoma/primitive neuroectodermal tumor diagnosed by excisional biopsy of left inguinal mass on 04/12/2016. Her disease appears to be stage IIA (T1b, N0, M0), with no other sites of involvement by clinical evaluation. 2. She has a prior history of grade 2 infiltrating ductal carcinoma the left breast, stage IIB, ER/ TN positive and HER-2/afsaneh negative. Her other medical illness include: 3. GERD. 4. Degenerative arthritis. 5. Depression. Plan: PROBLEMS ADDRESSED TODAY 1. Walls sarcoma/primitive neuroectodermal tumor diagnosed by excisional biopsy of left inguinal mass on 04/12/2016. Her disease appears to be stage IIA (T1b, N0, M0), with no other sites of involvement by clinical evaluation. She began chemotherapy with doxorubicin and Cytoxan, vincristine, mesna and Zinecard on May 23, 2016. Her treatment plan included alternating etoposide/ifosfamide/ mesna x5 days every other cycle. Restaging CT scans of the chest, abdomen, and pelvis on 09/14/2016 showed no evidence of metastatic disease. On 09/26/2016 she underwent radical resection of the left groin area. Pathology showed no residual sarcoma. She had an uneventful recovery from her surgery. Her further chemotherapy was delayed due to unavailability of Zinecard. She began her 7th cycle treatment on 10/30/2016 with the Adriamycin administered by 72-hour infusion. She was then able to continue her further chemotherapy on schedule, but with a planned substitution of actinomycin D for the Adriamycin beginning with cycle 11. Her treatment was complicated by pancytopenia, requiring transfusions of PRBC and/or platelets on multiple occasions. She completed her 17th and final cycle of chemotherapy on 07/16/2017. At her follow-up at [facility] in April 2018 there is reportedly no evidence of recurrence of the Walls sarcoma. She was seen here on 05/28/2018 with complaints of severe pain in the left hip area. She also was having frequent headaches, and she just wasn't feeling good generally. X-ray of the left hip and subsequent MRI of the pelvis showed some nonspecific findings, but no evidence of recurrence of her sarcoma. She had symptomatic improvement on empiric steroid therapy with dexamethasone. During subsequent follow-up she was able to taper off and discontinue the dexamethasone. She has continued on observation/expectant management for the Walls sarcoma. A. Labs from today were reviewed in detail discussed with Ms. Ferguson was given to her. 7.1 labs from today were reviewed in detail and discussed with Mrs. Ferguson and a copy was given to her. WBC 7.1, hemoglobin 13.3 platelets 10 11,000 ANC is 4490. Creatinine 0.5 random glucose 101 LFTs are normal alk phos is 74. B. She has no complaints of new pain and her fatigue/performance status is stable. 2. She has a prior history of grade 2 infiltrating ductal carcinoma the left breast, stage IIB, ER/ TN positive and HER-2/afsaneh negative. Her treatment included excisional biopsy followed by adjuvant chemotherapy with 4 cycles of Adriamycin/cyclophosphamide and 4 cycles of Taxotere, completed in November 2006. She completed prophylactic chest wall radiation following left modified radical mastectomy in January 2007. She completed 5 years of hormonal therapy with tamoxifen in February 2012. Thus far during followup there has been no evidence of recurrence of the breast cancer. A. Mrs. Ferguson had follow-up CT of the chest abdomen pelvis on 03/04/2020 for monitoring of the Walls sarcoma as well as history of breast cancer. There is no evidence of metastatic disease in the chest. There was no mediastinal hilar or axillary lymphadenopathy. 3. Chronic musculoskeletal pain due to to history of Walls sarcoma as well as degenerative arthritis A. Her pain is currently controlled with hydrocodone 12/25/2024 2 tablets up to 4 times daily. Her last prescription was on May 23, 2020 she states she does not need any until the first part of June 2020. 4. Follow-up plan A. We will plan to see her back in 3 months with CBC CMP. B. Mrs. Ferguson was in encouraged to contact us in interim should questions or problems arise. C. She states that she will follow with her primary care regarding her burning discomfort after intercourse. Signed By: Donell Valdes-MELANIE, AOCNP Surya Boo MD <<Signature on File>>
== END 2020-06-13 11:00 | disposition home or self-care (01) ==
PROVIDERS: PCP Family Medicine; Visit Provider Nurse Practitioner
DX: Z08 Encounter for follow-up examination after completed treatment for malignant neoplasm (principal); Z85.3 Personal history of malignant neoplasm of breast; Z85.831 Personal history of malignant neoplasm of soft tissue; G89.29 Other chronic pain; M79.10 Myalgia, unspecified site; N94.10 Unspecified dyspareunia; Z92.21 Personal history of antineoplastic chemotherapy; Z92.3 Personal history of irradiation; Z90.12 Acquired absence of left breast and nipple; Z79.891 Long term (current) use of opiate analgesic
CPT/HCPCS: 36591; 80053; 85025; 99214

== ENCOUNTER 2020-06-24 08:07 | Outpatient (CLI) | payer MEDICARE, MEDICAID, SELFPAY ==
--- NOTE | 2020-06-24 | CT_ITS ---
WS: [id number] CT scan of the chest With IV contrast, CT scan of the abdomen and pelvis with IV contrast and oral contrast. Additional two-dimensional coronal and sagittal reconstruction was performed. 06/24/2020 Clinical Data: BREAST CANCER Comparison: CT chest abdomen and pelvis, 03/04/2020. DLP: 2225.[address] scans at [facility] use at least one of these dose optimization techniques: automat ed exposure control; mA and/or kV adjustment per patient size (includes targeted exams where dose is matched to clinical indication); or iterative reconstruction. Findings: Chest: No nodules, masses or effusions are seen. There is an infusion catheter with the port on the right. The heart size is normal with no pericardial effusion. No pneumonia or pneumothorax is seen. The pulmonary arterial system and thoracic aorta demonstrate no abnormalities or dilatations. There is no axillary or significant mediastinal adenopathy. There is posterior sclerosis of the T6 ve rtebral body unchanged. Abdomen/pelvis: The liver, gallbladder, spleen, adrenal glands and pancreas are normal. The kidneys show equal bilateral contrast excretion with solitary nonobstructing central renal calcul i. No cysts, masses or hydronephrosis is seen. The abdominal aorta is normal in size with minimal calcification in the wall. No appendicitis or diverticulitis is seen. Oral contrast is in the stomach and small bowel and there is no bowel dilatation. No abscess, adenopathy, ascites, mass, obstruction or free air is seen. The bladder is unremarkable. No inguinal hernia is seen. The uterus is normal. There are clips in the left inguinal region from surgery. 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 No bony metastatic lesions are seen.. CT/CT chest abd pel w con* Impression: 1. Negative for metastatic disease of the chest, abdomen and pelvis. 2. Bilateral solitary nonobstructing central renal calculi. 3. Stable sclerotic lesion in the posterior aspect of T6 vertebral body.
[2020-06-24] MEDS: iohexol 300 mg/mL 50 mL Btl PO (09:05)
[2020-06-24] MEDS: iohexol 300 mg/mL 100 mL Btl IV (10:02)
== END 2020-06-24 08:08 | disposition home or self-care (01) ==
LOC: RADWPI 08:19
PROVIDERS: PCP Family Medicine; Visit Provider Internal Medicine Medical Oncology
DX: C50.412 Malignant neoplasm of upper-outer quadrant of left female breast (principal); N20.0 Calculus of kidney
CPT/HCPCS: 71260; 74177; Q9967

== ENCOUNTER 2020-07-08 09:13 | Outpatient (CLI) | payer MEDICARE, MEDICAID, SELFPAY | END 2020-07-08 09:14 | disposition home or self-care (01) | PROVIDERS: PCP Family Medicine; Visit Provider Internal Medicine Medical Oncology | DX: Z45.2 Encounter for adjustment and management of vascular access device (principal) | CPT/HCPCS: 96523 ==

== ENCOUNTER 2020-07-25 06:54 | Outpatient (CLI) | payer MEDICARE, MEDICAID, SELFPAY ==
[2020-07-25] MEDS: alteplase 1 mg/mL SDV 2 mL 2 MG IV (11:40)
== END 2020-07-25 06:55 | disposition home or self-care (01) ==
LOC: ONCMED 06:56
PROVIDERS: PCP Family Medicine; Visit Provider Nurse Practitioner
DX: C50.812 Malignant neoplasm of overlapping sites of left female breast (principal); Z17.0 Estrogen receptor positive status [ER+]; Z79.899 Other long term (current) drug therapy
CPT/HCPCS: 36593; 96374; J2997

== ENCOUNTER 2020-08-25 08:39 | Outpatient (CLI) | payer MEDICARE, MEDICAID, SELFPAY | END 2020-08-25 08:40 | disposition home or self-care (01) | LOC: ONCMED 08:41 | PROVIDERS: PCP Family Medicine; Visit Provider Internal Medicine Medical Oncology | DX: Z45.2 Encounter for adjustment and management of vascular access device (principal) | CPT/HCPCS: 96523 ==

== ENCOUNTER 2020-09-14 12:17 | Outpatient (CLI) | payer MEDICARE, MEDICAID, SELFPAY ==
[2020-09-14 13:18] LABS: Basophils % 0.3 %; Eosinophils # 0.1 10^3/uL (0.0-0.8); Eosinophils % 1.8 %; Hematocrit 42.3 % (37.0-47.0); Hemoglobin 14.3 g/dL (11.5-15.3); Lymphocytes # 2.5 10^3/uL (0.8-4.8); Lymphocytes % 37.4 %; Mean Corpuscular HGB Conc 33.8 g/dL (30.0-36.0); Mean Corpuscular Hemoglobin 33.2 pg (28.0-34.0); Mean Corpuscular Volume 98.1 fL (81-99); Mean Platelet Volume 9.7 fL (7.4-10.4); Monocytes # 0.4 10^3/uL (0.2-0.9); Monocytes % 5.9 %; Neutrophils % 54.3 %; Nucleated Red Blood Cells % 0 %; Platelet Count 258 10^3/cmm (130-400); Red Blood Count 4.31 10^6/uL (4.1-5.3); Red Cell Distribution Width 12.2 % (12.1-15.1); White Blood Count 6.6 10^3/uL (4.0-10.0)
[2020-09-14 13:26] LABS: Alanine Aminotransferase 15 U/L (0-33); Albumin Level 4.4 g/dL (3.5-5.2); Alkaline Phosphatase 85 IU/L (35-105); Anion Gap 13.9 (5-19); Aspartate Amino Transferase 17 U/L (0-32); Blood Urea Nitrogen 16 mg/dL (6-20); Calcium 9.7 mg/dL (8.5-10.5); Carbon Dioxide 27 mmol/L (22-29); Chloride 102 mmol/L (98-107); Globulin 2.5 g/dL (1.3-4.6); Glomerular Filtration Rate 129.1 mL/min (90-130); Glucose 110 mg/dL (65-115); Osmolality Calculated 290 mOsm/kg (285-295); Potassium 3.9 mmol/L (3.5-5.1); Sodium 139 mmol/L (136-145); Total Bilirubin 0.2 mg/dL (0.15-1.2); Total Protein 6.9 g/dL (6.6-8.7)
--- NOTE | 2020-09-18 10:39 | ONC FU_ITS ---
Dr. Boo Patient Follow-Up Note Patient: Naya Ferguson Unit #: [id number]: 1965 Dicatated By: Surya Boo M.D.Date of Visit:Sep 14, 2020 Onc Med Follow-up/Prog Note Chief Complaint: Breast cancer/Walls sarcoma. 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 She had presented in March 2016 with a lump in her left groin area. She had first become aware of it sometime around the beginning of January. An ultrasound on 03/29/2016 showed an enlarging solid soft tissue nodule in the left groin measuring 5.2 x 3.3 cm. Only a single mass was identified. The appearance was felt to be consistent with hematoma, abnormal lymph node, or thrombosed pseudoaneurysm. She was referred to Dr. Brown. She underwent excisional biopsy of the inguinal mass on 04/12/2016. 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 A staging PET/CT on 04/21/2016 showed evidence of a 7.3 x 5.4 cm seroma in the left inguinal region with minimal postoperative inflammatory FDG uptake. There were no sites of pathologic adenopathy or other metastatic disease identified. MRI of the brain was negative for metastatic disease. She was referred to [facility] for second opinion evaluation. She was seen there by Dr. Sushila Tovar. Their review of the pathology also was felt to be consistent with Walls sarcoma/primitive neuroectodermal tumor. Restaging scans showed no definite evidence of recurrence, but there were findings suspicious for abscess at the biopsy site. She was recommended to undergo chemotherapy with vincristine, doxorubicin, and cyclophosphamide alternating with ifosfamide/etoposide for 10 cycles followed by vincristine, dactinomycin, and cyclophosphamide alternating with ifosfamide/etoposide for an additional 7 cycles, total treatment course to be 17 cycles. It was also recommended that she receive upfront dexrazoxane prophylaxis due to her previous anthracycline therapy. Her baseline echocardiogram was normal with estimated ejection fraction at 60%. She then underwent placement of Port-A-Cath venous access device. She began cycle 1 of chemotherapy with Vincristine, doxorubicin and cyclophosphamide on 05/23/2016. She did receive Neulasta prophylactically. Her treatment was complicated by neutropenia and dehydration, but she recovered uneventfully. In the meantime, she had further staging evaluation with MRI of the abdomen/pelvis on 05/31/2016. There were postsurgical changes noted in the left groin. There was no adenopathy and no evidence of other metastatic disease. On 06/11/2016 she began her cycle 2 chemotherapy with 5 days of ifosfamide/mesna and etoposide. It was again complicated by weakness/fatigue, but she otherwise tolerated it well. She received her cycle 3 chemotherapy on 07/02/2016. She was again weak and tired for several days after the treatment and she again became severely neutropenic, but she recovered uneventfully. She also developed significant anemia, hemoglobin dropping to 8.1 g. She did not require transfusion. She was able to continue with her cycle 4 chemotherapy on schedule on 07/23/2016, with cycle 5 on 08/13/2016, and with cycle 6 on 09/03/2016. Restaging CT scans of the chest, abdomen, and pelvis at [facility] on 09/14/2016 showed no evidence of metastatic disease. On 09/26/2016 she underwent radical resection of the left groin. Pathology showed no residual sarcoma. She had a follow-up visit at [facility] on 10/08/2016 and at that point she was released to continue with her 7th cycle of chemotherapy. We had a delay in restarting her treatment due to the unavailability of Zinecard. After further discussion with her oncologist at [facility], we continued her treatment without Zinecard and with Adriamycin administered by 72-hour infusion. She began cycle 7 on 10/30/2016. She had no adverse reactions to the infusion, and she received her cycle 8 treatment on schedule. She began cycle 9 on 12/10/2016. She again experienced no adverse effects with the Adriamycin infusion. However, at day 8 she was severely neutropenic with a total of white blood cell count of 500, ANC 0. Her hemoglobin at that point had dropped to 7.3 g. She received a transfusion of 2 U of irradiated packed red blood cells on 12/18/2016. Following day she presented to the emergency room with severe weakness, fever, and muscle aching. Her ANC was still 0. Her hemoglobin had dropped to 5.4 g. There was no laboratory evidence for hemolysis. She was admitted to the hospital and started broad-spectrum antibiotic coverage. She was transfused an additional 2 U of irradiated packed red blood cells. Her blood cultures remain negative, but her serology for influenza B antigen was positive. Her hemoglobin then stabilized and she had gradual recovery of her neutrophils. She was discharged on 12/22/2016. She continued with her cycle 10 chemotherapy on 01/07/2017. Beginning with cycle 11, she had a planned change in her regimen, substituting dactinomycin for the Adriamycin. She then continued her treatment on schedule, though she continued to have fatigue and some nausea with the chemotherapy. Her treatment also was complicated by anemia, moderately severe neutropenia, and moderate to severe thrombocytopenia. She required transfusion on multiple occasions, at least once or twice each month. She had no further episodes of neutropenic fever, and she had no bleeding complications with the thrombocytopenia. She began her cycle 16 treatment with ifosfamide/mesna and etoposide on 06/03/2017. Her subsequent interim blood counts again showed severe pancytopenia, requiring transfusion of packed red blood cells on 06/11/2017 and on 06/18/2017. She also received a single donor platelet pheresis on 06/15/2017. She was unable to continue with her 17th and final cycle of chemotherapy with VAC on 07/16/2017. She was then followed on observation/expectant management. Her breast cancer was diagnosed in 2006. She had presented at that time with a lump in her left breast. Mammogram showed diffuse increased density in the parenchyma of the left breast throughout the upper outer quadrant. There was no discrete mass noted in that area, but towards the axillary tail there appeared to be a cluster of enlarged lymph nodes which measured approximately 3.6 cm in diameter. There were additional nodes measuring 1.6 and 1.8 cm which were incompletely included at the margin of that study. She underwent excisional biopsy on 06/27/06. Pathology showed grade 2 infiltrating ductal carcinoma which measured 4.2 x 3.1 cm. There was involvement in multiple margins. The tumor was ER positive at 37% and DE positive at 16%. It was negative for overexpression of HER-2/afsaneh by IHC and by FISH. She was then given chemotherapy with 4 cycles of Adriamycin/cyclophosphamide and 4 cycles of Taxotere. She completed chemotherapy in November of 2006. She underwent left modified radical mastectomy in January of 2007. Pathology showed just a few residual foci of infiltrating ductal carcinoma involving lymphatic spaces within the breast, but there was involvement in 3 of 21 axillary lymph nodes. She was given prophylactic chest wall radiation, which she completed in April of 2007 to a total dose of 6000 cGy. She completed 5 years of adjuvant hormonal therapy with tamoxifen in February of 2012. Thus far during followup there has been no evidence of recurrence of the breast cancer. Her other medical illnesses include GERD, degenerative arthritis, and depression. She has a history of smoking 1/2 pack of cigarettes daily. She quit smoking in 2004. INTERIM HISTORY: I had seen her for a follow-up visit on 05/28/2018. At that time she had multiple complaints, including pain in the left groin area radiating down the left leg. She also had been having frequent headaches. She complained of severe fatigue and poor appetite. Her laboratory studies were unremarkable. Her left hip x-ray showed a subtle lucency overlying the inferior acetabulum and femoral head. She had further evaluation with MRI of the pelvis on 06/11/2018. It showed nonspecific left medial acetabular 6 mm subcortical focal marrow signal abnormality and enhancement of uncertain etiology/significance. There were no definite findings of recurrent or metastatic disease in the pelvis. There was suspected left posterior acetabular labral degeneration with possible tear or fraying. In the meantime, I had opted to treat her empirically with dexamethasone, initially at 4 mg twice a day. During followup she was feeling better. She was then able to gradually taper off dexamethasone. She continued observation/expectant management for the Walls sarcoma. She had follow-up at [facility] in August 2019. Her CT abdomen/pelvis from 08/27/2019 showed no evidence of metastatic disease. Her surveillance CT scans done here on 03/04/2020 showed no evidence of metastatic disease in the chest, abdomen, or pelvis. A sclerotic lesion in the T6 vertebral body appeared unchanged. She continued expectant management. Her repeat CT scans on 06/24/2020 showed bilateral solitary nonobstructing central renal calculi. A sclerotic lesion in the posterior aspect of the T6 vertebral body appeared stable. Overall there was no evidence of metastatic disease in the chest, abdomen, and pelvis. She is seen for a scheduled visit. She has been feeling pretty good generally, though she still has limited activity tolerance. She says if she does too much she is down for 2 days. ECOG score is 1. She has good appetite. She has no fever, night sweats, or hot flashes. She has noted occasional aching pain in the bottom jaw. She has no difficulty swallowing. She has no shortness of breath, cough, or chest pain. She has had some acid reflux off and on, but not bad. She has no other GI or complaints. She has chronic pain in the low back rating down both hips. She does not complain of headache. She does have some dizziness. She has tingling in her legs and feet. Medications: Allergy 1 (4 mg) Tablet Oral daily, Dexilant 1 Capsule (of 20 mg) Capsule Delayed Release Oral daily, Famotidine 1 (20 mg) Tablet Oral b.i.d., Ferrous Sulfate 1 Tablet (of 325 (65 fe) mg) Oral daily, Glucosamine 1 Tablet Oral daily, Hydrocodone-Acetaminophen 1 - 2 Tablet (of 10-325 mg) Oral four times a day PRN, Ibuprofen Tablet Oral PRN, Potassium Chloride ER 1 Capsule (of 20 meq) Capsule, controlled release Oral daily, Simvastatin 1 Tablet (of 20 mg) Oral daily, Venlafaxine HCl 1 Tablet (of 150 mg) Oral daily, Zofran 1 (4 mg) Tablet Oral q 8 hours PRN Allergies: Acyclovir and Alcohol base liquids. Vital Signs: Performed on Sep 14, 2020 14:52 Height - 68.00 in Weight - 183.4 lbs (LOW) BSA - 1.97 sq.m BMI - 27.89 Temperature - 96.4 F (LOW) Pulse - 79 /min Respiration - 18 /min BP - 131/84 mm(hg) O2 Sat - 95 % (LOW) Pain - 4 Fatigue - 0 Physical Examination: Constitutional - She looks pretty good generally, Eyes - Sclerae nonicteric. Conjunctivae clear, ENMT - No lesions noted in the oral cavity, Hematologic/Lymphatic - No cervical, clavicular, or axillary adenopathy, Respiratory - Lungs are clear with good air movement bilaterally, Cardiovascular - Heart rhythm is regular. There is a II/ systolic murmur. There is no gallop or rub noted, Abdomen - Mildly distended but soft. Liver and spleen are not enlarged. There is no abdominal mass or ascites noted. There is no inguinal adenopathy, Extremities - No edema. Pedal pulses are palpable bilaterally, Neurologic - No focal neurologic deficits noted. Lab/Imaging: Test performed on Sep 14, 2020 12:35 Sodium 139 mmol/L Potassium 3.9 mmol/L Chloride 102 mmol/L CO2 27 mmol/L Anion Gap 13.9 BUN 16 mg/dL Creatinine 0.5 mg/dL Cr Clearance (Est) 170.89 mL/min eGFR 129.1 mL/min Glucose 110 mg/dL Osmolality - Calculated 290 mOsm/kg Calcium 9.7 mg/dL Protein, Total 6.9 g/dL Albumin 4.4 g/dL Globulin 2.5 g/dL Bilirubin, Total 0.2 mg/dL ALT (SGPT) 15 U/L AST (SGOT) 17 U/L Alkaline Phosphatase 85 IU/L WBC 6.6 10 3/uL RBC 4.31 10 6/uL HGB 14.3 g/dL HCT 42.3 % MCV 98.1 fL MCH 33.2 pg MCHC 33.8 g/dL RDW 12.2 % Platelet Count 258 10 3/cmm MPV 9.7 fL Neutrophils 3.60 10 3/uL Lymphocytes 2.5 10 3/uL Monocytes 0.4 10 3/uL Eosinophils 0.1 10 3/uL Basophils 0.0 10 3/uL Neutrophil % 54.3 % Lymphocyte % 37.4 % Monocyte % 5.9 % Eosinophil % 1.8 % Basophils % 0.3 % NRBC % 0 % Problem List: 1. Patient with Walls sarcoma/primitive neuroectodermal tumor diagnosed by excisional biopsy of left inguinal mass on 04/12/2016. Her disease appears to be stage IIA (T1b, N0, M0), with no other sites of involvement by clinical evaluation. She underwent chemotherapy per recommendations from Dr. Sushila Tovar at [facility]. 2. She has a prior history of grade 2 infiltrating ductal carcinoma the left breast, stage IIB, ER/ DE positive and HER-2/afsaneh negative. 3. GERD. 4. Degenerative arthritis. 5. Depression. Problems Addressed with this Encounter and Plan: 1. Patient with Walls sarcoma/primitive neuroectodermal tumor diagnosed by excisional biopsy of left inguinal mass on 04/12/2016. Her disease appeared to be stage IIA (T1b, N0, M0), with no other sites of involvement by clinical evaluation. Per recommendations from Dr. Sushila Tovar at [facility] she underwent chemotherapy with vincristine, doxorubicin, and cyclophosphamide alternating with ifosfamide/etoposide for 10 cycles followed by vincristine, dactinomycin, and cyclophosphamide alternating with ifosfamide/etoposide for an additional 7 cycles, for a total treatment course of 17 cycles. On 09/26/2016, following her 6th cycle of chemotherapy, she underwent radical resection of the left groin area. Pathology showed no residual sarcoma. She had an uneventful recovery from her surgery. Her further chemotherapy was delayed due to unavailability of Zinecard. She began her 7th cycle treatment on 10/30/2016 with the Adriamycin administered by 72-hour infusion. She was then able to continue her further chemotherapy on schedule, but with a planned substitution of actinomycin D for the Adriamycin beginning with cycle 11. Her treatment was complicated by pancytopenia, requiring transfusions of PRBC and/or platelets on multiple occasions. She completed her 17th and final cycle of chemotherapy on 07/16/2017. She was then followed on expectant management. During followup she has had some fatigue and some chronic pain. Thus far there has been no evidence of recurrence of the Walls's sarcoma. She continues on observation/expectant management. I will see her again in 6 months. 2. She has a prior history of grade 2 infiltrating ductal carcinoma the left breast, stage IIB, ER/ DE positive and HER-2/afsaneh negative. Her treatment included excisional biopsy followed by adjuvant chemotherapy with 4 cycles of Adriamycin/cyclophosphamide and 4 cycles of Taxotere, completed in November 2006. She completed prophylactic chest wall radiation following left modified radical mastectomy in January 2007. She completed 5 years of hormonal therapy with tamoxifen in February 2012. Thus far during followup there has been no evidence of recurrence of the breast cancer. 3. She has chronic pain following completion of chemotherapy. It is managed adequately with medication. Signed By: Surya Boo M.D. <<Signature on File>>
== END 2020-09-14 12:18 | disposition home or self-care (01) ==
LOC: ONCMED 12:20
PROVIDERS: PCP Family Medicine; Visit Provider Internal Medicine Medical Oncology
DX: Z08 Encounter for follow-up examination after completed treatment for malignant neoplasm (principal); Z92.21 Personal history of antineoplastic chemotherapy; Z90.12 Acquired absence of left breast and nipple; Z92.3 Personal history of irradiation; G89.29 Other chronic pain; T50.905S Adverse effect of unspecified drugs, medicaments and biological substances, sequela; R53.83 Other fatigue
CPT/HCPCS: 36591; 80053; 85025; 99214

== ENCOUNTER 2020-10-25 12:16 | Outpatient (CLI) | payer MEDICARE, MEDICAID, SELFPAY | END 2020-10-25 12:17 | disposition home or self-care (01) | LOC: ONCMED 12:19 | PROVIDERS: PCP Family Medicine; Visit Provider Internal Medicine Medical Oncology | DX: Z45.2 Encounter for adjustment and management of vascular access device (principal) | CPT/HCPCS: 96523 ==

== ENCOUNTER 2020-12-02 10:28 | Outpatient (CLI) | payer MEDICARE, MEDICAID, SELFPAY | END 2020-12-02 10:29 | disposition home or self-care (01) | LOC: ONCMED 10:31 | PROVIDERS: PCP Family Medicine; Visit Provider Internal Medicine Medical Oncology | DX: Z45.2 Encounter for adjustment and management of vascular access device (principal) | CPT/HCPCS: 96523 ==

== ENCOUNTER 2021-01-06 08:47 | Outpatient (CLI) | payer MEDICARE, MEDICAID, SELFPAY ==
[2021-01-06] MEDS: alteplase 1 mg/mL SDV 2 mL 2 MG IV (09:20)
== END 2021-01-06 08:48 | disposition home or self-care (01) ==
PROVIDERS: PCP Family Medicine; Visit Provider Internal Medicine Medical Oncology
DX: C41.9 Malignant neoplasm of bone and articular cartilage, unspecified (principal); Z85.3 Personal history of malignant neoplasm of breast; Z92.21 Personal history of antineoplastic chemotherapy; Z79.899 Other long term (current) drug therapy
CPT/HCPCS: 36593; 96374; J2997

== ENCOUNTER 2021-02-10 09:15 | Outpatient (CLI) | payer MEDICARE, MEDICAID, SELFPAY | END 2021-02-10 09:16 | disposition home or self-care (01) | PROVIDERS: PCP Family Medicine; Visit Provider Internal Medicine Medical Oncology | DX: Z45.2 Encounter for adjustment and management of vascular access device (principal) | CPT/HCPCS: 96523 ==

== ENCOUNTER 2021-03-09 13:41 | Outpatient (CLI) | payer MEDICARE, MEDICAID, SELFPAY | END 2021-03-09 13:42 | disposition home or self-care (01) | LOC: ONCMED 13:48 | PROVIDERS: PCP Nurse Practitioner Family; Visit Provider Nurse Practitioner Family | DX: Z45.2 Encounter for adjustment and management of vascular access device (principal) | CPT/HCPCS: 96523 ==

== ENCOUNTER 2021-04-06 11:20 | Outpatient (CLI) | payer MEDICARE, MEDICAID, SELFPAY ==
[2021-04-06 13:03] LABS: Basophils % 0.3 %; Eosinophils # 0.1 10^3/uL (0.0-0.8); Eosinophils % 1.3 %; Hematocrit 38.8 % (37.0-47.0); Hemoglobin 13.2 g/dL (11.5-15.3); Lymphocytes # 2.7 10^3/uL (0.8-4.8); Mean Corpuscular Hemoglobin 33.6 pg (28.0-34.0); Mean Corpuscular Volume 98.7 fl (81-99); Mean Platelet Volume 10.1 fL (7.4-10.4); Monocytes # 0.6 10^3/uL (0.2-0.9); Monocytes % 7.2 %; Neutrophils # 4.38 10^3/uL (1.8-7.7); Neutrophils % 55.9 %; Nucleated Red Blood Cells % 0 %; Platelet Count 277 10^3/cmm (130-400); Red Blood Count 3.93 10^6/uL (4.1-5.3); Red Cell Distribution Width 12.7 % (12.1-15.1); White Blood Count 7.8 10^3/uL (4.0-10.0)
[2021-04-06 13:22] LABS: Alanine Aminotransferase 12 U/L (0-33); Albumin Level 4.2 g/dL (3.5-5.2); Alkaline Phosphatase 83 IU/L (35-105); Anion Gap 17.9 (5-19); Aspartate Amino Transferase 14 U/L (0-32); Blood Urea Nitrogen 9 mg/dL (6-20); Calcium 8.8 mg/dL (8.5-10.5); Carbon Dioxide 23 mmol/L (22-29); Chloride 101 mmol/L (98-107); Globulin 2.6 g/dL (1.3-4.6); Glomerular Filtration Rate 104.2 mL/min (90-130); Glucose 78 mg/dL (65-115); Osmolality Calculated 284 mOsm/kg (285-295); Potassium 3.9 mmol/L (3.5-5.1); Sodium 138 mmol/L (136-145); Total Bilirubin 0.3 mg/dL (0.15-1.2); Total Protein 6.8 g/dL (6.6-8.7)
--- NOTE | 2021-04-10 07:50 | ONC FU_ITS ---
Dr. Boo Patient Follow-Up Note Patient: Naya Ferguson Unit #: [id number]: 1965 Dicatated By: Surya Boo M.D.Date of Visit:Apr 06, 2021 Onc Med Follow-up/Prog Note Chief Complaint: Breast cancer/Walls sarcoma. 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 She had presented in March 2016 with a lump in her left groin area. She had first become aware of it sometime around the beginning of January. An ultrasound on 03/29/2016 showed an enlarging solid soft tissue nodule in the left groin measuring 5.2 x 3.3 cm. Only a single mass was identified. The appearance was felt to be consistent with hematoma, abnormal lymph node, or thrombosed pseudoaneurysm. She was referred to Dr. Brown. She underwent excisional biopsy of the inguinal mass on 04/12/2016. 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 A staging PET/CT on 04/21/2016 showed evidence of a 7.3 x 5.4 cm seroma in the left inguinal region with minimal postoperative inflammatory FDG uptake. There were no sites of pathologic adenopathy or other metastatic disease identified. MRI of the brain was negative for metastatic disease. She was referred to [facility] for second opinion evaluation. She was seen there by Dr. Sushila Tovar. Their review of the pathology also was felt to be consistent with Walls sarcoma/primitive neuroectodermal tumor. Restaging scans showed no definite evidence of recurrence, but there were findings suspicious for abscess at the biopsy site. She was recommended to undergo chemotherapy with vincristine, doxorubicin, and cyclophosphamide alternating with ifosfamide/etoposide for 10 cycles followed by vincristine, dactinomycin, and cyclophosphamide alternating with ifosfamide/etoposide for an additional 7 cycles, total treatment course to be 17 cycles. It was also recommended that she receive upfront dexrazoxane prophylaxis due to her previous anthracycline therapy. Her baseline echocardiogram was normal with estimated ejection fraction at 60%. She then underwent placement of Port-A-Cath venous access device. She began cycle 1 of chemotherapy with Vincristine, doxorubicin and cyclophosphamide on 05/23/2016. She did receive Neulasta prophylactically. Her treatment was complicated by neutropenia and dehydration, but she recovered uneventfully. In the meantime, she had further staging evaluation with MRI of the abdomen/pelvis on 05/31/2016. There were postsurgical changes noted in the left groin. There was no adenopathy and no evidence of other metastatic disease. On 06/11/2016 she began her cycle 2 chemotherapy with 5 days of ifosfamide/mesna and etoposide. It was again complicated by weakness/fatigue, but she otherwise tolerated it well. She received her cycle 3 chemotherapy on 07/02/2016. She was again weak and tired for several days after the treatment and she again became severely neutropenic, but she recovered uneventfully. She also developed significant anemia, hemoglobin dropping to 8.1 g. She did not require transfusion. She was able to continue with her cycle 4 chemotherapy on schedule on 07/23/2016, with cycle 5 on 08/13/2016, and with cycle 6 on 09/03/2016. Restaging CT scans of the chest, abdomen, and pelvis at [facility] on 09/14/2016 showed no evidence of metastatic disease. On 09/26/2016 she underwent radical resection of the left groin. Pathology showed no residual sarcoma. She had a follow-up visit at [facility] on 10/08/2016 and at that point she was released to continue with her 7th cycle of chemotherapy. We had a delay in restarting her treatment due to the unavailability of Zinecard. After further discussion with her oncologist at [facility], we continued her treatment without Zinecard and with Adriamycin administered by 72-hour infusion. She began cycle 7 on 10/30/2016. She had no adverse reactions to the infusion, and she received her cycle 8 treatment on schedule. She began cycle 9 on 12/10/2016. She again experienced no adverse effects with the Adriamycin infusion. However, at day 8 she was severely neutropenic with a total of white blood cell count of 500, ANC 0. Her hemoglobin at that point had dropped to 7.3 g. She received a transfusion of 2 U of irradiated packed red blood cells on 12/18/2016. Following day she presented to the emergency room with severe weakness, fever, and muscle aching. Her ANC was still 0. Her hemoglobin had dropped to 5.4 g. There was no laboratory evidence for hemolysis. She was admitted to the hospital and started broad-spectrum antibiotic coverage. She was transfused an additional 2 U of irradiated packed red blood cells. Her blood cultures remain negative, but her serology for influenza B antigen was positive. Her hemoglobin then stabilized and she had gradual recovery of her neutrophils. She was discharged on 12/22/2016. She continued with her cycle 10 chemotherapy on 01/07/2017. Beginning with cycle 11, she had a planned change in her regimen, substituting dactinomycin for the Adriamycin. She then continued her treatment on schedule, though she continued to have fatigue and some nausea with the chemotherapy. Her treatment also was complicated by anemia, moderately severe neutropenia, and moderate to severe thrombocytopenia. She required transfusion on multiple occasions, at least once or twice each month. She had no further episodes of neutropenic fever, and she had no bleeding complications with the thrombocytopenia. She began her cycle 16 treatment with ifosfamide/mesna and etoposide on 06/03/2017. Her subsequent interim blood counts again showed severe pancytopenia, requiring transfusion of packed red blood cells on 06/11/2017 and on 06/18/2017. She also received a single donor platelet pheresis on 06/15/2017. She was unable to continue with her 17th and final cycle of chemotherapy with VAC on 07/16/2017. She was then followed on observation/expectant management. Her breast cancer was diagnosed in 2006. She had presented at that time with a lump in her left breast. Mammogram showed diffuse increased density in the parenchyma of the left breast throughout the upper outer quadrant. There was no discrete mass noted in that area, but towards the axillary tail there appeared to be a cluster of enlarged lymph nodes which measured approximately 3.6 cm in diameter. There were additional nodes measuring 1.6 and 1.8 cm which were incompletely included at the margin of that study. She underwent excisional biopsy on 06/27/06. Pathology showed grade 2 infiltrating ductal carcinoma which measured 4.2 x 3.1 cm. There was involvement in multiple margins. The tumor was ER positive at 37% and [place] positive at 16%. It was negative for overexpression of HER-2/afsaneh by IHC and by FISH. She was then given chemotherapy with 4 cycles of Adriamycin/cyclophosphamide and 4 cycles of Taxotere. She completed chemotherapy in November of 2006. She underwent left modified radical mastectomy in January of 2007. Pathology showed just a few residual foci of infiltrating ductal carcinoma involving lymphatic spaces within the breast, but there was involvement in 3 of 21 axillary lymph nodes. She was given prophylactic chest wall radiation, which she completed in April of 2007 to a total dose of 6000 cGy. She completed 5 years of adjuvant hormonal therapy with tamoxifen in February of 2012. Thus far during followup there has been no evidence of recurrence of the breast cancer. Her other medical illnesses include GERD, degenerative arthritis, and depression. She has a history of smoking 1/2 pack of cigarettes daily. She quit smoking in 2004. INTERIM HISTORY: I had seen her for a follow-up visit on 05/28/2018. At that time she had multiple complaints, including pain in the left groin area radiating down the left leg. She also had been having frequent headaches. She complained of severe fatigue and poor appetite. Her laboratory studies were unremarkable. Her left hip x-ray showed a subtle lucency overlying the inferior acetabulum and femoral head. She had further evaluation with MRI of the pelvis on 06/11/2018. It showed nonspecific left medial acetabular 6 mm subcortical focal marrow signal abnormality and enhancement of uncertain etiology/significance. There were no definite findings of recurrent or metastatic disease in the pelvis. There was suspected left posterior acetabular labral degeneration with possible tear or fraying. In the meantime, I had opted to treat her empirically with dexamethasone, initially at 4 mg twice a day. During followup she was feeling better. She was then able to gradually taper off dexamethasone. She continued observation/expectant management for the Walls sarcoma. She had follow-up at [facility] in August 2019. Her CT abdomen/pelvis from 08/27/2019 showed no evidence of metastatic disease. Her surveillance CT scans done here on 03/04/2020 showed no evidence of metastatic disease in the chest, abdomen, or pelvis. A sclerotic lesion in the T6 vertebral body appeared unchanged. Her repeat CT scans on 06/24/2020 showed bilateral solitary nonobstructing central renal calculi. A sclerotic lesion in the posterior aspect of the T6 vertebral body appeared stable. Overall there was no evidence of metastatic disease in the chest, abdomen, and pelvis. She continued expectant management. She is seen for a scheduled visit. She has been feeling okay, though her energy has not been that good. She says her allergies got a lot worse over [place], mainly with sneezing and coughing. She apparently also had some low-grade fever during that time, but she it is getting better. She is able to do light work at home. ECOG score is 1. She has good appetite. She has otherwise not had fever. She has not been having night sweats or hot flashes. She has not had sore mouth or throat. Her cough is better now. She does not complain of shortness of breath or chest pain. She has occasional acid reflux. She has no other GI or complaints. She has chronic pain in her back and in her hips and knees, and she has neuropathy pain in her arms and legs. She is able to function with the pain medication. Medications: Allergy 1 (4 mg) Tablet Oral daily, Dexilant 1 Capsule (of 20 mg) Capsule Delayed Release Oral daily, Famotidine 1 (20 mg) Tablet Oral b.i.d., Ferrous Sulfate 1 Tablet (of 325 (65 fe) mg) Oral daily, Glucosamine 1 Tablet Oral daily, Hydrocodone-Acetaminophen 1 - 2 Tablet (of 10-325 mg) Oral four times a day PRN, Ibuprofen Tablet Oral PRN, Potassium Chloride ER 1 Capsule (of 20 meq) Capsule, controlled release Oral daily, Simvastatin 1 Tablet (of 20 mg) Oral daily, Venlafaxine HCl 1 Tablet (of 150 mg) Oral daily, Zofran 1 (4 mg) Tablet Oral q 8 hours PRN Allergies: Acyclovir and Alcohol base liquids. Vital Signs: Performed on Apr 06, 2021 16:23 Height - 68.00 in Weight - 178.8 lbs (LOW) BSA - 1.95 sq.m BMI - 27.19 Temperature - 97.2 F (LOW) Pulse - 77 /min Respiration - 18 /min BP - 146/65 mm(hg) (HIGH) O2 Sat - 94 % (LOW) Pain - 0 Fatigue - 7 Physical Examination: Constitutional - She looks pretty good generally, Eyes - Sclerae nonicteric. Conjunctivae clear, ENMT - No lesions noted in the oral cavity, Hematologic/Lymphatic - No cervical or clavicular axillary adenopathy, Respiratory - Lungs are clear with good air movement bilaterally, Cardiovascular - Heart rhythm is regular. There is a II/ systolic murmur. There is no gallop or rub noted, Breasts - There are no chest wall lesions noted. There is no axillary adenopathy, Abdomen - Soft. Liver and spleen are not enlarged. There is no abdominal mass or ascites noted. There is no inguinal adenopathy, Extremities - No edema, Neurologic - No focal neurologic deficits noted. Lab/Imaging: Test performed on Apr 06, 2021 11:45 Sodium 138 mmol/L Potassium 3.9 mmol/L Chloride 101 mmol/L CO2 23 mmol/L Anion Gap 17.9 BUN 9 mg/dL Creatinine 0.6 mg/dL Cr Clearance (Est) 137.24 mL/min eGFR 104.2 mL/min Glucose 78 mg/dL Osmolality - Calculated 284 mOsm/kg Calcium 8.8 mg/dL Protein, Total 6.8 g/dL Albumin 4.2 g/dL Globulin 2.6 g/dL Bilirubin, Total 0.3 mg/dL ALT (SGPT) 12 U/L AST (SGOT) 14 U/L Alkaline Phosphatase 83 IU/L WBC 7.8 10 3/uL RBC 3.93 10 6/uL HGB 13.2 g/dL HCT 38.8 % MCV 98.7 fl MCH 33.6 pg MCHC 34.0 g/dL RDW 12.7 % Platelet Count 277 10 3/cmm MPV 10.1 fL Neutrophils 4.38 10 3/uL Lymphocytes 2.7 10 3/uL Monocytes 0.6 10 3/uL Eosinophils 0.1 10 3/uL Basophils 0.0 10 3/uL Neutrophil % 55.9 % Lymphocyte % 35.0 % Monocyte % 7.2 % Eosinophil % 1.3 % Basophils % 0.3 % NRBC % 0 % Problem List: 1. Patient with Walls sarcoma/primitive neuroectodermal tumor diagnosed by excisional biopsy of left inguinal mass on 04/12/2016. Her disease appeared to be stage IIA (T1b, N0, M0), with no other sites of involvement by clinical evaluation. She underwent chemotherapy per recommendations from Dr. Sushila Tovar at [facility]. 2. She has a prior history of grade 2 infiltrating ductal carcinoma the left breast, stage IIB, ER/ [place] positive and HER-2/afsaneh negative. 3. GERD. 4. Degenerative arthritis. 5. Depression. Problems Addressed with this Encounter and Plan: 1. Patient with Walls sarcoma/primitive neuroectodermal tumor diagnosed by excisional biopsy of left inguinal mass on 04/12/2016. Her disease appeared to be stage IIA (T1b, N0, M0), with no other sites of involvement by clinical evaluation. Per recommendations from Dr. Sushila Tovar at [facility] she underwent chemotherapy with vincristine, doxorubicin, and cyclophosphamide alternating with ifosfamide/etoposide for 10 cycles followed by vincristine, dactinomycin, and cyclophosphamide alternating with ifosfamide/etoposide for an additional 7 cycles, for a total treatment course of 17 cycles. On 09/26/2016, following her 6th cycle of chemotherapy, she underwent radical resection of the left groin area. Pathology showed no residual sarcoma. She had an uneventful recovery from her surgery. Her further chemotherapy was delayed due to unavailability of Zinecard. She began her 7th cycle treatment on 10/30/2016 with the Adriamycin administered by 72-hour infusion. She was then able to continue her further chemotherapy on schedule, but with a planned substitution of actinomycin D for the Adriamycin beginning with cycle 11. Her treatment was complicated by pancytopenia, requiring transfusions of PRBC and/or platelets on multiple occasions. She completed her 17th and final cycle of chemotherapy on 07/16/2017. She was then followed on expectant management. During followup she has had some fatigue and some chronic pain. Thus far there has been no evidence of recurrence of the Walls's sarcoma. She continues on expectant management. I will see her again in 6 months. 2. She has GERD. She has been on long-term therapy with Dexilant. I will try transitioning to famotidine, but if it is not effective in controlling her symptoms, I will restart the Dexilant. 3. She has a prior history of grade 2 infiltrating ductal carcinoma the left breast, stage IIB, ER/ [place] positive and HER-2/afsaneh negative. Her treatment included excisional biopsy followed by adjuvant chemotherapy with 4 cycles of Adriamycin/cyclophosphamide and 4 cycles of Taxotere, completed in November 2006. She completed prophylactic chest wall radiation following left modified radical mastectomy in January 2007. She completed 5 years of hormonal therapy with tamoxifen in February 2012. Thus far during followup there has been no evidence of recurrence of the breast cancer. 4. She has had chronic pain following completion of chemotherapy. It has been managed adequately with hydrocodone/APAP. At this point I will try adding gabapentin initially at 300 mg 3 times daily, and I will begin tapering the hydrocodone.. Signed By: Surya Boo M.D. <<Signature on File>>
== END 2021-04-06 11:21 | disposition home or self-care (01) ==
PROVIDERS: PCP Nurse Practitioner Family; Visit Provider Internal Medicine Medical Oncology
DX: Z08 Encounter for follow-up examination after completed treatment for malignant neoplasm (principal); Z85.830 Personal history of malignant neoplasm of bone; Z85.3 Personal history of malignant neoplasm of breast; K21.9 Gastro-esophageal reflux disease without esophagitis; G89.29 Other chronic pain; Z79.891 Long term (current) use of opiate analgesic; M19.90 Unspecified osteoarthritis, unspecified site; F32.A Depression, unspecified
CPT/HCPCS: 36591; 80053; 85025; 99214

== ENCOUNTER 2021-05-01 09:12 | Outpatient (CLI) | payer MEDICARE, MEDICAID, SELFPAY ==
[2021-05-01 09:41] LABS: Basophils % 0.5 %; Eosinophils # 0.2 10^3/uL (0.0-0.8); Eosinophils % 2.5 %; Hematocrit 41.6 % (37.0-47.0); Hemoglobin 13.7 g/dL (11.5-15.3); Lymphocytes # 2.2 10^3/uL (0.8-4.8); Lymphocytes % 28.6 %; Mean Corpuscular HGB Conc 32.9 g/dL (30.0-36.0); Mean Corpuscular Volume 100.2 fl (81-99); Mean Platelet Volume 9.3 fL (7.4-10.4); Monocytes # 0.4 10^3/uL (0.2-0.9); Monocytes % 5.3 %; Neutrophils # 4.73 10^3/uL (1.8-7.7); Nucleated Red Blood Cells % 0 %; Platelet Count 224 10^3/cmm (130-400); Red Blood Count 4.15 10^6/uL (4.1-5.3); Red Cell Distribution Width 12.6 % (12.1-15.1); White Blood Count 7.5 10^3/uL (4.0-10.0)
[2021-05-01 10:13] LABS: Alanine Aminotransferase 14 U/L (0-33); Albumin Level 4.7 g/dL (3.5-5.2); Alkaline Phosphatase 86 IU/L (35-105); Anion Gap 14.1 (5-19); Aspartate Amino Transferase 17 U/L (0-32); Blood Urea Nitrogen 15 mg/dL (6-20); Carbon Dioxide 29 mmol/L (22-29); Chloride 104 mmol/L (98-107); Chol HDL Ratio 7.24 mg/dL (0.0-4.40); Cholesterol 297 mg/dL (0-200); Globulin 1.9 g/dL (1.3-4.6); Glomerular Filtration Rate 128.6 mL/min (90-130); Glucose 115 mg/dL (65-115); HDL Cholesterol 41 mg/dL (60-100); Osmolality Calculated 298 mOsm/kg (285-295); Potassium 4.1 mmol/L (3.5-5.1); Sodium 143 mmol/L (136-145); Total Bilirubin 0.2 mg/dL (0.15-1.2); Total Protein 6.6 g/dL (6.6-8.7); Triglycerides 446 mg/dL (0-150)
[2021-05-01 10:47] LABS: LDL Cholesterol Direct 155 mg/dL (0-100)
== END 2021-05-01 09:13 | disposition home or self-care (01) ==
PROVIDERS: PCP Nurse Practitioner Family; Visit Provider Internal Medicine Medical Oncology
DX: C49.22 Malignant neoplasm of connective and soft tissue of left lower limb, including hip (principal); Z85.3 Personal history of malignant neoplasm of breast; Z79.52 Long term (current) use of systemic steroids; Z79.899 Other long term (current) drug therapy
CPT/HCPCS: 36591; 80053; 80061; 83721; 85025

== ENCOUNTER 2021-05-25 07:57 | Outpatient (CLI) | payer MEDICARE, MEDICAID, SELFPAY | END 2021-05-25 07:58 | disposition home or self-care (01) | PROVIDERS: PCP Nurse Practitioner Family; Visit Provider Internal Medicine Medical Oncology | DX: Z45.2 Encounter for adjustment and management of vascular access device (principal); Z85.3 Personal history of malignant neoplasm of breast | CPT/HCPCS: 96523 ==

== ENCOUNTER 2021-06-26 12:08 | Outpatient (CLI) | payer MEDICARE, MEDICAID, SELFPAY | END 2021-06-26 12:09 | disposition home or self-care (01) | LOC: ONCMED 12:13 | PROVIDERS: PCP Nurse Practitioner Family; Visit Provider Internal Medicine Medical Oncology | DX: Z45.2 Encounter for adjustment and management of vascular access device (principal) | CPT/HCPCS: 96523 ==

== ENCOUNTER → 2021-06-29 10:05 | Outpatient (BNVA) | payer MEDICARE, MEDICAID, SELFPAY | PROVIDERS: PCP Nurse Practitioner Family; Visit Provider Family Medicine | DX: R50.9 Fever, unspecified (principal); R05.9 Cough, unspecified; J10.1 Influenza due to other identified influenza virus with other respiratory manifestations | CPT/HCPCS: 87400 ==

== ENCOUNTER → 2021-07-03 08:24 | Outpatient (BNVA) | payer MEDICARE, MEDICAID, SELFPAY | PROVIDERS: PCP Nurse Practitioner Family; Visit Provider Internal Medicine Rheumatology | DX: M25.50 Pain in unspecified joint (principal); M54.41 Lumbago with sciatica, right side; M54.42 Lumbago with sciatica, left side; G89.29 Other chronic pain; Z79.899 Other long term (current) drug therapy; Z92.3 Personal history of irradiation; Z92.21 Personal history of antineoplastic chemotherapy; Z85.3 Personal history of malignant neoplasm of breast; Z85.830 Personal history of malignant neoplasm of bone | CPT/HCPCS: 36415; 72100; 73130; 73630; 82306; 85651; 86038; 86140; 86200; 86431; 99204 ==

== ENCOUNTER 2021-07-25 12:59 | Oncology outpatient (recurring) (ONCR) | payer MEDICARE, MEDICAID, SELFPAY | END 2021-08-22 23:59 | disposition home or self-care (01) | PROVIDERS: PCP Nurse Practitioner Family; Visit Provider Internal Medicine Medical Oncology | DX: C49.22 Malignant neoplasm of connective and soft tissue of left lower limb, including hip (principal); Z85.3 Personal history of malignant neoplasm of breast; Z79.52 Long term (current) use of systemic steroids; D64.81 Anemia due to antineoplastic chemotherapy; D70.1 Agranulocytosis secondary to cancer chemotherapy; T45.1X5A Adverse effect of antineoplastic and immunosuppressive drugs, initial encounter; Z45.2 Encounter for adjustment and management of vascular access device; Z92.3 Personal history of irradiation | CPT/HCPCS: 36591; 96523 ==

== ENCOUNTER 2021-08-25 08:56 | Oncology outpatient (recurring) (ONCR) | payer MEDICARE, MEDICAID, SELFPAY | END 2021-09-21 23:59 | disposition home or self-care (01) | PROVIDERS: PCP Nurse Practitioner Family; Visit Provider Internal Medicine Medical Oncology | DX: Z45.2 Encounter for adjustment and management of vascular access device (principal) | CPT/HCPCS: 96523 ==

== ENCOUNTER 2021-10-12 11:34 | Oncology outpatient (recurring) (ONCR) | payer MEDICARE, MEDICAID, SELFPAY ==
[2021-10-12 12:43] LABS: Basophils # 0.1 10^3/uL (0.0-0.1); Basophils % 0.4 %; Eosinophils % 0.2 %; Hematocrit 41.4 % (37.0-47.0); Hemoglobin 12.9 g/dL (11.5-15.3); Lymphocytes # 1.4 10^3/uL (0.8-4.8); Lymphocytes % 9.9 %; Mean Corpuscular HGB Conc 31.2 g/dL (30.0-36.0); Mean Corpuscular Hemoglobin 32.6 pg (28.0-34.0); Mean Corpuscular Volume 104.5 fl (81-99); Mean Platelet Volume 9.6 fL (7.4-10.4); Monocytes # 0.4 10^3/uL (0.2-0.9); Monocytes % 2.5 %; Neutrophils # 12.27 10^3/uL (1.8-7.7); Neutrophils % 86.5 %; Nucleated Red Blood Cells % 0 %; Platelet Count 239 10^3/cmm (130-400); Red Blood Count 3.96 10^6/uL (4.1-5.3); Red Cell Distribution Width 12.8 % (12.1-15.1); White Blood Count 14.2 10^3/uL (4.0-10.0)
[2021-10-12 13:06] LABS: Alanine Aminotransferase 14 U/L (0-33); Albumin Level 4.1 g/dL (3.5-5.2); Alkaline Phosphatase 60 IU/L (35-105); Anion Gap 14.1 (5-19); Aspartate Amino Transferase 14 U/L (0-32); Blood Urea Nitrogen 19 mg/dL (6-20); Calcium 9.4 mg/dL (8.5-10.5); Carbon Dioxide 29 mmol/L (22-29); Chloride 105 mmol/L (98-107); Glomerular Filtration Rate 87.2 mL/min (90-130); Glucose 160 mg/dL (65-115); Osmolality Calculated 304 mOsm/kg (285-295); Potassium 4.1 mmol/L (3.5-5.1); Sodium 144 mmol/L (136-145); Total Bilirubin 0.2 mg/dL (0.15-1.2); Total Protein 6.1 g/dL (6.6-8.7)
== END 2021-10-22 23:59 | disposition home or self-care (01) ==
LOC: ONCMED 11:35
PROVIDERS: PCP Nurse Practitioner Family; Visit Provider Internal Medicine Medical Oncology
DX: Z08 Encounter for follow-up examination after completed treatment for malignant neoplasm (principal); Z85.830 Personal history of malignant neoplasm of bone; Z85.3 Personal history of malignant neoplasm of breast; Z92.21 Personal history of antineoplastic chemotherapy; Z92.3 Personal history of irradiation; G62.0 Drug-induced polyneuropathy; T45.1X5A Adverse effect of antineoplastic and immunosuppressive drugs, initial encounter; R53.83 Other fatigue; G89.29 Other chronic pain
CPT/HCPCS: 36591; 80053; 85025; 99214

== ENCOUNTER 2021-10-14 22:23 | Emergency (ER) | payer MEDICARE, MEDICAID, SELFPAY ==
[2021-10-14 22:29] VITALS: BP 107/72; PULSE 119; RESP 20; TEMP 36.6; O2SAT 97; BMI 28.1
--- NOTE | 2021-10-14 23:08 | W.ED.HA ---
HPI - Headache General: Chief Complaint: Nausea/Vomiting/Diarrhea Stated Complaint: n/v/d Time Seen by Provider: 10/14/21 22:27 Source: patient Mode of arrival: ambulatory Limitations: no limitations History of Present Illness: 55-year-old female states for the last 2 days she has been having generalized fatigue body ache along with vomiting and diarrhea. Patient states that she is also had headaches she rates a 7 out of 10. She denies any fever she denies any worsening improving factors denies any known sick contacts. She denies any chest pain or abdominal pain. 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, RT Polyarthralgia Shoulder pain, right Family History Other Cancer Rheumatoid arthritis Stroke Denies family history of Diabetes Lupus CAD (coronary artery disease) Chronic kidney disease (CKD) Lung disease Hypertension Social History Smoking and tobacco status: current every day smoker (1 ppd) cigarettes Packs smoked per day: 1 Alcohol intake: never History of recent travel: No Physical Exam Const: COMMON NORMALS: patient oriented x3 and healthy appearing HENMT: COMMON NORMALS: normocephalic and atraumatic HEAD & SCALP: normocephalic and atraumatic Eye: COMMON NORMALS: Equal, round and reactive pupils present and EOMs intact bilaterally PUPIL: Yes Equal, round and reactive pupils present Neck/C-Spine: COMMON NORMALS: full ROM and supple Chest: COMMONS NORMALS: normal inspection of the chest and normal palpation of entire chest wall Resp: COMMON NORMALS: normal respiratory effort, No retractions, No use of accessory muscles and clear to auscultation bilaterally AUSCULTATION: clear to auscultation bilaterally Cardio: COMMON NORMALS: regular rhythm and No murmurs present (Cardio) RATE: tachycardic RHYTHM: regular rhythm GI: COMMON NORMALS: Normal to inspection, nondistended, normoactive bowel sounds present, Soft to palpation, non-tender and no masses PALPATION: Yes Soft to palpation Extremity: COMMON NORMALS: normal to inspection and full ROM Neuro: COMMON NORMALS: patient oriented x3, moves all extremities and no focal motor deficits Psych: COMMON NORMALS: mental status grossly normal, Normal thought process present and cooperative THOUGHT PROCESS: Normal thought process present Skin: COMMON NORMALS: no rashes or lesions noted and no wounds GENERAL SKIN EXAM: no rashes or lesions noted Course Vital Signs: Vital signs: Vital Signs Temperature 98 F 10/14/21 22:29 Pulse Rate 88 10/15/21 01:12 Respiratory Rate 18 10/15/21 01:12 Blood Pressure 104/87 10/15/21 01:12 Pulse Oximetry 96 10/15/21 01:12 MDM - Headache Medical Decision Making Patient presents here with vomiting along with some abdominal pain she does have a kidney stone patient has no signs of pyelonephritis she feels improved after IV fluids she has been able tolerate p.o. fluids here we will get her follow-up with urology she is return if worsening she understands agrees to plan. Lab Data : 10/14/21 23:14 10/14/21 23:[address] 10/14/21 23:42 IMPRESSION: No acute intracranial abnormality. Abdomen/Pelvis CT 10/15/21 01:06 IMPRESSION: Partially obstructing 4.7 mm distal left ureteral calculus near the level of the ureterovesical junction. Laboratory Results WBC 13.9 10^3/uL (4.0-10.0) H 10/14/21 23:14 RBC 4.00 10^6/uL (4.1-5.3) L 10/14/21 23:14 Hgb 13.0 g/dL (11.5-15.3) 10/14/21 23:14 Hct 38.1 % (37.0-47.0) 10/14/21 23:14 MCV 95.3 fl (81-99) 10/14/21 23:14 MCH 32.5 pg (28.0-34.0) 10/14/21 23:14 MCHC 34.1 g/dL (30.0-36.0) 10/14/21 23:14 RDW 12.7 % (12.1-15.1) 10/14/21 23:14 Plt Count 117 10^3/cmm (130-400) L 10/14/21 23:14 MPV 9.4 fL (7.4-10.4) 10/14/21 23:14 Neut % (Auto) 91.1 % 10/14/21 23:14 Lymph % (Auto) 5.4 % 10/14/21 23:14 Amite % (Auto) 2.4 % 10/14/21 23:14 Eos % (Auto) 0.0 % 10/14/21 23:14 Baso % (Auto) 0.1 % 10/14/21 23:14 Neut # (Auto) 12.69 10^3/uL (1.8-7.7) H 10/14/21 23:14 Lymph # (Auto) 0.8 10^3/uL (0.8-4.8) 10/14/21 23:14 Amite # (Auto) 0.3 10^3/uL (0.2-0.9) 10/14/21 23:14 Eos # (Auto) 0.0 10^3/uL (0.0-0.8) 10/14/21 23:14 Baso # (Auto) 0.0 10^3/uL (0.0-0.1) 10/14/21 23:14 Nucleated RBC % (auto) 0 % 10/14/21 23:14 Nucleated RBCs # 0.0 /100WBC 10/14/21 23:14 Sodium 128 mmol/L (136-145) L 10/14/21 23:14 Potassium 2.9 mmol/L (3.5-5.1) L 10/14/21 23:14 Chloride 89 mmol/L (98-107) L 10/14/21 23:14 Carbon Dioxide 22 mmol/L (22-29) 10/14/21 23:14 Anion Gap 19.9 (5-19) H 10/14/21 23:14 BUN 19 mg/dL (6-20) 10/14/21 23:14 Creatinine 1.2 mg/dL (0.5-0.9) H 10/14/21 23:14 GFR Calculation 46.8 mL/min (90-130) L 10/14/21 23:14 Glucose 171 mg/dL (65-115) H 10/14/21 23:14 Calculated Osmolality 272 mOsm/kg (285-295) L 10/14/21 23:14 Calcium 9.2 mg/dL (8.5-10.5) 10/14/21 23:14 Total Bilirubin 0.8 mg/dL (0.15-1.2) 10/14/21 23:14 AST 27 U/L (0-32) 10/14/21 23:14 ALT 22 U/L (0-33) 10/14/21 23:14 Alkaline Phosphatase 104 IU/L (35-105) 10/14/21 23:14 Total Protein 6.4 g/dL (6.6-8.7) L 10/14/21 23:14 Albumin 3.4 g/dL (3.5-5.2) L 10/14/21 23:14 Globulin 3.0 g/dL (1.3-4.6) 10/14/21 23:14 Lipase 27 U/L (13-60) 10/14/21 23:14 Urine Color Yellow (Yellow) 10/14/21 23:38 Urine Appearance Hazy (CLEAR) A 10/14/21 23:38 Urine pH 6 (5-7) 10/14/21 23:38 Ur Specific Te[place]y 1.010 (1.005-1.030) 10/14/21 23:38 Urine Protein 2+ (Negative) H 10/14/21 23:38 Urine Glucose (UA) Norm (Normal) 10/14/21 23:38 Urine Ketones 1+ (Negative) H 10/14/21 23:38 Urine Blood 3+ (Negative) H 10/14/21 23:38 Urine Nitrate Negative (Negative) 10/14/21 23:38 Urine Bilirubin Neg (Negative) 10/14/21 23:38 Urine Urobilinogen Neg mg/dL (Negative) 10/14/21 23:38 Ur Leukocyte Esterase 2+ (Negative) H 10/14/21 23:38 Urine RBC 10-15 /hpf (0-2) H 10/14/21 23:38 Urine WBC 40-55 /hpf (0-5) H 10/14/21 23:38 Ur Squamous Epith Cells 10-15 /hpf (0-5) H 10/14/21 23:38 Amorphous Sediment Not Reportable 10/14/21 23:38 Urine Bacteria 3+ /hpf (NONE) H 10/14/21 23:38 SARS-CoV-2 Ag (Rapid) Negative (Negative) 10/14/21 23:14 Discharge Plan Discharge Patient Disposition: Home Clinical Impression: Kidney stone Condition: Stable Prescriptions: New hydrocodone-acetaminophen 5-325 mg tablet 1 tab PO Q6H PRN (Reason: pain) Qty: 14 0RF ondansetron 4 mg tablet,disintegrating 4 mg PO Q6H PRN (Reason: nausea and vomiting) Qty: 14 0RF cephalexin 500 mg capsule 500 mg PO TID 7 Days Qty: 21 0RF No Action venlafaxine 150 mg capsule,extended release 24hr 150 mg PO QAM 0RF ibuprofen 800 mg tablet 800 mg PO TID PRN (Reason: pain) Qty: 90 5RF famotidine See Rx Instructions PO BID 0RF Rx Instructions: 20 mg PO twice a day; B-complex with vitamin C Capsule 1 cap PO DAILY 0RF phenazopyridine [Azo Urinary Pain Relief] 95 mg tablet 95 mg PO TID PRN0RF oxycodone 15 mg tablet 15 mg PO QID PRN (Reason: pain) 30 Days Qty: 120 0RF cholecalciferol (vitamin D3) 25 mcg (1,000 unit) capsule 25 mcg PO DAILY Qty: 30 0RF potassium chloride 20 mEq tablet extended release 20 meq PO DAILY 0RF ascorbic acid (vitamin C) 500 mg capsule See Rx Instructions PO DAILY Qty: 30 0RF Rx Instructions: 1 tablet PO daily; estrolibrium See Rx Instructions PO DAILY Qty: 30 0RF Rx Instructions: 1 tablet PO daily; Stool Softener 50 mg capsule 50 mg PO DAILY Qty: 30 0RF Immune Support 250-12.5 mg tablet,chewable See Rx Instructions PO .COMPLEX Qty: 30 0RF Rx Instructions: 1 tablet daily PO; nystatin 100,000 unit/gram cream 1 applic TOPICAL TID PRN (Reason: rash) Qty: 30 5RF prednisone 10 mg tablet See Rx Instructions .ROUTE .COMPLEX Qty: 30 1RF Dose Instruction: TAKE 1 TO 2 TABLETS BY MOUTH ONCE DAILY FOR THREE (3) TO 7 DAYS NEEDED FOR JOINT PAIN FLARE Rx Instructions: TAKE 1 TO 2 TABLETS BY MOUTH ONCE DAILY FOR THREE (3) TO 7 DAYS NEEDED FOR JOINT PAIN FLARE dexlansoprazole [Dexilant] 60 mg capsule,biphase delayed releas See Rx Instructions .ROUTE .COMPLEX Qty: 60 6RF Dose Instruction: TAKE ONE CAPSULE BY MOUTH TWICE A DAY Rx Instructions: TAKE ONE CAPSULE BY MOUTH TWICE A DAY atorvastatin 20 mg tablet See Rx Instructions .ROUTE .COMPLEX Qty: 90 0RF Dose Instruction: TAKE ONE TABLET BY MOUTH ONCE DAILY Rx Instructions: TAKE ONE TABLET BY MOUTH ONCE DAILY Discharge Orders: Discharge ED (Routine); Ordered 10/15/21 Ordered By: Kim Norman Referrals: Celio De La Vega DO [Primary Care Provider] - Andrea Foley MD [Physician] - 1-3 days Discharge Diet: Advance as tolerated Discharge Activity: Resume usual activity Patient Instructions: Kidney Stones (ED), Opioid Safety Coding Level of Care Code ED [employer]inator for Chg Fwd Exam Comprehensive
[2021-10-14] MEDS: sodium chloride 0.9% 1,000 ML 999 ML IV (23:13)
[2021-10-14 23:14] VITALS: RESP 18
[2021-10-14] MEDS: morphine 4 mg/mL SDV 1 mL IVP (23:14)
[2021-10-14] MEDS: ondansetron 2 mg/ML SDV 2 mL 4 MG IVP (23:14)
[2021-10-14 23:30] LABS: Basophils % 0.1 %; Hematocrit 38.1 % (37.0-47.0); Lymphocytes # 0.8 10^3/uL (0.8-4.8); Lymphocytes % 5.4 %; Mean Corpuscular HGB Conc 34.1 g/dL (30.0-36.0); Mean Corpuscular Hemoglobin 32.5 pg (28.0-34.0); Mean Corpuscular Volume 95.3 fl (81-99); Mean Platelet Volume 9.4 fL (7.4-10.4); Monocytes # 0.3 10^3/uL (0.2-0.9); Monocytes % 2.4 %; Neutrophils # 12.69 10^3/uL (1.8-7.7); Neutrophils % 91.1 %; Nucleated Red Blood Cells % 0 %; Platelet Count 117 10^3/cmm (130-400); Red Cell Distribution Width 12.7 % (12.1-15.1); White Blood Count 13.9 10^3/uL (4.0-10.0)
[2021-10-14 23:40] LABS: SARS Covid-2 Antigen Negative (Negative)
--- NOTE | 2021-10-14 23:42 | CTR_ITS ---
PROCEDURE INFORMATION: Exam: CT Head Without Contrast Exam date and time: 10/14/2021 11:57 PM Age: 55 years old Clinical indication: Pain; Headache; Patient HX: C/O DOMINGO with n/v. TECHNIQUE: Imaging protocol: Computed tomography of the head without contrast. Radiation optimization: All CT scans at this facility use at least one of these dose optimization techniques: automated exposure control; mA and/or kV adjustment per patient size (includes targeted exams where dose is matched to clinical indication); or iterative reconstruction. COMPARISON: CT head wo con* [id number] 08/20/2016 12:12 AM RADIATION DOSE METRICS: Total DLP (mGy-cm): 1053.58 FINDINGS: Brain: There is stable encephalomalacia in the inferior right frontal and temporal lobes from previous trauma or infection. No evidence of intracranial hemorrhage, mass effect, midline shift or extra-axial fluid collections. Midline structures are normal. Kumar-white matter differentiation is normal. Cerebral ventricles: No ventriculomegaly. Paranasal sinuses: Mucosal thickening in the ethmoid sinuses. Mastoid air cells: Visualized mastoid air cells are well aerated. Bones/joints: Unremarkable. No acute fracture. Soft tissues: Unremarkable. CT/CT head wo con* [id number] IMPRESSION: No acute intracranial abnormality.
[2021-10-14 23:44] LABS: Alanine Aminotransferase 22 U/L (0-33); Albumin Level 3.4 g/dL (3.5-5.2); Alkaline Phosphatase 104 IU/L (35-105); Anion Gap 19.9 (5-19); Aspartate Amino Transferase 27 U/L (0-32); Blood Urea Nitrogen 19 mg/dL (6-20); Calcium 9.2 mg/dL (8.5-10.5); Carbon Dioxide 22 mmol/L (22-29); Chloride 89 mmol/L (98-107); Glomerular Filtration Rate 46.8 mL/min (90-130); Glucose 171 mg/dL (65-115); Lipase 27 U/L (13-60); Osmolality Calculated 272 mOsm/kg (285-295); Sodium 128 mmol/L (136-145); Total Bilirubin 0.8 mg/dL (0.15-1.2); Total Protein 6.4 g/dL (6.6-8.7)
[2021-10-14 23:45] LABS: Potassium 2.9 mmol/L (3.5-5.1)
[2021-10-15] MEDS: potassium chloride ER 20 mEq Tablet 60 MEQ PO (00:11)
--- NOTE | 2021-10-15 01:06 | CTR_ITS ---
PROCEDURE INFORMATION: Exam: CT Abdomen And Pelvis Without Contrast Exam date and time: 10/15/2021 1:15 AM Age: 55 years old Clinical indication: Patient HX: Diarrhea with elevated wbc. History of simons's sarcoma/breast cancer. ; Additional info: Abd pain TECHNIQUE: Imaging protocol: Computed tomography of the abdomen and pelvis without contrast. Radiation optimization: All CT scans at this facility use at least one of these dose optimization techniques: automated exposure control; mA and/or kV adjustment per patient size (includes targeted exams where dose is matched to clinical indication); or iterative reconstruction. COMPARISON: CT chest abd pel w con* 06/24/2020 9:57 AM RADIATION DOSE METRICS: Total DLP (mGy-cm): 1151.01 FINDINGS: Liver: Normal. No mass. Gallbladder and bile ducts: Normal. No calcified stones. No ductal dilation. Pancreas: Normal. No ductal dilation. Spleen: Normal. No splenomegaly. Adrenal glands: Normal. No mass. Kidneys and ureters: There are strandy opacity seen in the left perinephric fascia suggesting inflammatory changes. There is mild hydronephrosis and hydroureter seen on the left. Hazy in strandy opacities are seen adjacent to the left ureter is well suggesting inflammatory changes. There is a 4.7 mm partially obstructing distal left ureteral calculus seen near the level of the ureterovesical junction. Stomach and bowel: Unremarkable. No obstruction. No mucosal thickening. Appendix: The appendix is visualized and is normal in configuration. Intraperitoneal space: Unremarkable. No free air. No significant fluid collection. Vasculature: Calcifications are seen within the thoracic and abdominal aorta. Lymph nodes: Unremarkable. No enlarged lymph nodes. Urinary bladder: Unremarkable as visualized. Reproductive: Unremarkable as visualized. Bones/joints: Unremarkable. No acute fracture. Soft tissues: Unremarkable. CT/CT abdomen pelvis wo con [id number] IMPRESSION: Partially obstructing 4.7 mm distal left ureteral calculus near the level of the ureterovesical junction.
[2021-10-15 01:12] VITALS: BP 104/87; PULSE 88; RESP 18; O2SAT 96
[2021-10-15 01:51] LABS: Add Urine Microscopic? YES; Bilirubin Urine Neg (Negative); Blood Urine 3+ (Negative); Glucose Urine UA Norm (Normal); Ketones Urine 1+ (Negative); Leukocyte Esterase Urine 2+ (Negative); Nitrate Urine Negative (Negative); Protein Urine 2+ (Negative); Urine Appearance Hazy (CLEAR); Urine Color Yellow (Yellow); Urobilinogen Urine Neg (Negative); pH Urine 6 (5-7)
[2021-10-15 01:53] LABS: Add Urine Culture? No; Bacteria Urine 3+ /hpf; WBC Urine 40-55 /hpf (0-5)
[2021-10-15] MEDS: cefTRIAXone 1,000 MG in sodium chloride 0.9% (plus) 50 ML 100 MG IV (02:26)
[2021-10-15 02:57] VITALS: BP 137/84; PULSE 100; RESP 18; O2SAT 95
== END 2021-10-15 02:58 | disposition home or self-care (01) ==
PROVIDERS: Emergency Provider Emergency Medicine; PCP Family Medicine
DX: N20.0 Calculus of kidney (principal); F17.210 Nicotine dependence, cigarettes, uncomplicated; Z20.822 Contact with and (suspected) exposure to COVID-19
CPT/HCPCS: 70450; 74176; 80053; 81001; 83690; 85025; 87426; 96365; 96375; 99285; J0696; J2270; J2405; J7030

== ENCOUNTER 2021-10-20 07:12 | Outpatient (CLI) | payer MEDICARE, MEDICAID, SELFPAY ==
--- NOTE | 2021-10-20 07:21 | XR_ITS ---
WS: [id number] Exam: XR KUB [id number] Date/Time of Exam: 10/20/2021 7:23 AM Reason For Exam: Kidney Stone No bowel obstruction or free air. 3 mm calcification superimposes the region of the right kidney and could represent a renal stone. 6 mm left lower pelvic calcification nonspecific. Surgical clips noted in the left pelvic and inguinal region. XR/XR KUB [id number] IMPRESSION: 1. No acute abdominal process. 2. 3 mm calcification superimposes the right renal silhouette and may represent a renal stone. Nonspecific 6 mm left pelvic calcification.
== END 2021-10-20 07:13 | disposition home or self-care (01) ==
LOC: RAD 07:14
PROVIDERS: PCP Family Medicine; Visit Provider Nurse Practitioner Family
DX: N20.2 Calculus of kidney with calculus of ureter (principal)
CPT/HCPCS: 74018; 99203

== ENCOUNTER → 2021-10-23 09:11 | Outpatient (BNVA) | payer MEDICARE, MEDICAID, SELFPAY | PROVIDERS: PCP Family Medicine; Visit Provider Internal Medicine Rheumatology | DX: M47.896 Other spondylosis, lumbar region (principal); Z79.52 Long term (current) use of systemic steroids; Z92.3 Personal history of irradiation; Z92.23 Personal history of estrogen therapy; Z92.21 Personal history of antineoplastic chemotherapy; Z85.831 Personal history of malignant neoplasm of soft tissue; Z85.830 Personal history of malignant neoplasm of bone; Z85.3 Personal history of malignant neoplasm of breast; M54.41 Lumbago with sciatica, right side; M54.42 Lumbago with sciatica, left side | CPT/HCPCS: 99214 ==

== ENCOUNTER → 2021-10-26 08:07 | Outpatient (BNVA) | payer MEDICARE, MEDICAID, SELFPAY | PROVIDERS: PCP Family Medicine; Visit Provider Urology | DX: N20.1 Calculus of ureter (principal); N20.0 Calculus of kidney | CPT/HCPCS: 74018; 81003; 99203 ==

== ENCOUNTER 2021-11-13 08:04 | Oncology outpatient (recurring) (ONCR) | payer MEDICARE, MEDICAID, SELFPAY ==
[2021-11-13] MEDS: alteplase 1 mg/mL SDV 2 mL 2 MG INTRACATH (08:33)
[2021-11-13 09:00] VITALS: BP 150/98; PULSE 75; RESP 18; TEMP 37; O2SAT 98
== END 2021-11-22 23:59 | disposition home or self-care (01) ==
PROVIDERS: PCP Family Medicine; Visit Provider Internal Medicine Medical Oncology
DX: Z45.2 Encounter for adjustment and management of vascular access device (principal); Y82.8 Other medical devices associated with adverse incidents
CPT/HCPCS: 36593; 96523; 99214; J2997

== ENCOUNTER 2021-11-24 07:55 | Outpatient (CLI) | payer MEDICARE, MEDICAID, SELFPAY ==
--- NOTE | 2021-11-24 08:09 | XR_ITS ---
WS: [id number] Exam: XR KUB [id number] Date/Time of Exam: 11/24/2021 8:09 AM Reason For Exam: N20.0 - Calculus of kidney 3 mm calcification superimposes the right kidney and may represent a renal stone or gallstone. No bow el obstruction or free air. Surgical clips in the region of the left pelvis and left hip. No sign of organ enlargement. Bony structures are unremarkable. XR/XR KUB [id number] IMPRESSION: 1. 3 mm calcification in the right abdomen that may represent a gallstone or ki dney stone. 2. No acute abdominal process.
== END 2021-11-24 07:56 | disposition home or self-care (01) ==
LOC: RAD 07:59
PROVIDERS: PCP Family Medicine; Visit Provider Urology
DX: N30.90 Cystitis, unspecified without hematuria; N20.2 Calculus of kidney with calculus of ureter
CPT/HCPCS: 74018; 81003; 87077; 87086; 87186; 99213

== ENCOUNTER 2021-12-15 11:26 | Oncology outpatient (recurring) (ONCR) | payer MEDICARE, MEDICAID, SELFPAY | END 2021-12-22 23:59 | disposition home or self-care (01) | PROVIDERS: PCP Family Medicine; Visit Provider Internal Medicine Medical Oncology | DX: Z45.2 Encounter for adjustment and management of vascular access device (principal); Y82.8 Other medical devices associated with adverse incidents | CPT/HCPCS: 96523 ==

== ENCOUNTER 2022-01-15 15:01 | Oncology outpatient (recurring) (ONCR) | payer MEDICARE, MEDICAID, SELFPAY | END 2022-01-22 23:59 | disposition home or self-care (01) | PROVIDERS: PCP Family Medicine; Visit Provider Internal Medicine Medical Oncology | DX: Z45.2 Encounter for adjustment and management of vascular access device (principal) | CPT/HCPCS: 96523 ==

== ENCOUNTER 2022-02-13 14:34 | Oncology outpatient (recurring) (ONCR) | payer MEDICARE, MEDICAID, SELFPAY | END 2022-02-21 23:59 | disposition home or self-care (01) | LOC: ONCMED 14:34 | PROVIDERS: PCP Family Medicine; Visit Provider Internal Medicine Medical Oncology | DX: Z45.2 Encounter for adjustment and management of vascular access device (principal) | CPT/HCPCS: 96523 ==

== ENCOUNTER 2022-03-12 14:48 | Oncology outpatient (recurring) (ONCR) | payer MEDICARE, MEDICAID, SELFPAY | END 2022-03-24 23:59 | disposition home or self-care (01) | LOC: ONCMED 14:49 | PROVIDERS: PCP Family Medicine; Visit Provider Internal Medicine Medical Oncology | DX: Z45.2 Encounter for adjustment and management of vascular access device (principal) | CPT/HCPCS: 96523 ==

== ENCOUNTER 2022-04-13 09:42 | Oncology outpatient (recurring) (ONCR) | payer MEDICARE, MEDICAID, SELFPAY ==
[2022-04-13 10:17] LABS: Basophils % 0.3 %; Eosinophils # 0.1 10^3/uL (0.0-0.8); Eosinophils % 1.6 %; Hematocrit 40.4 % (37.0-47.0); Hemoglobin 13.3 g/dL (11.5-15.3); Lymphocytes # 2.3 10^3/uL (0.8-4.8); Lymphocytes % 36.9 %; Mean Corpuscular HGB Conc 32.9 g/dL (30.0-36.0); Mean Corpuscular Hemoglobin 30.9 pg (28.0-34.0); Mean Platelet Volume 9.2 fL (7.4-10.4); Monocytes # 0.4 10^3/uL (0.2-0.9); Monocytes % 5.6 %; Neutrophils # 3.49 10^3/uL (1.8-7.7); Neutrophils % 55.4 %; Nucleated Red Blood Cells % 0 %; Platelet Count 223 10^3/cmm (130-400); Red Cell Distribution Width 12.4 % (12.1-15.1); White Blood Count 6.3 10^3/uL (4.0-10.0)
[2022-04-13 10:39] LABS: Alanine Aminotransferase 12 U/L (0-33); Albumin Level 4.4 g/dL (3.5-5.2); Alkaline Phosphatase 86 U/L (35-105); Anion Gap 13.1 (5-19); Aspartate Amino Transferase 16 U/L (0-32); Blood Urea Nitrogen 16 mg/dL (6-20); Calcium 9.1 mg/dL (8.5-10.5); Carbon Dioxide 27 mmol/L (22-29); Chloride 104 mmol/L (98-107); Globulin 2.2 g/dL (1.3-4.6); Glomerular Filtration Rate 86.9 mL/min (90-130); Glucose 107 mg/dL (65-115); Osmolality Calculated 292 mOsm/kg (285-295); Potassium 4.1 mmol/L (3.5-5.1); Sodium 140 mmol/L (136-145); Total Bilirubin 0.3 mg/dL (0.15-1.2); Total Protein 6.6 g/dL (6.6-8.7)
== END 2022-04-24 23:59 | disposition home or self-care (01) ==
PROVIDERS: PCP Family Medicine; Visit Provider Internal Medicine Medical Oncology
DX: Z45.2 Encounter for adjustment and management of vascular access device (principal)
CPT/HCPCS: 36591; 80053; 85025; 99214

== ENCOUNTER 2022-05-14 07:32 | Oncology outpatient (recurring) (ONCR) | payer MEDICARE, MEDICAID, SELFPAY ==
[2022-05-14 08:33] LABS: Basophils % 0.3 %; Eosinophils # 0.1 10^3/uL (0.0-0.8); Eosinophils % 1.9 %; Hematocrit 41.7 % (37.0-47.0); Hemoglobin 13.4 g/dL (11.5-15.3); Lymphocytes # 2.8 10^3/uL (0.8-4.8); Lymphocytes % 41.4 %; Mean Corpuscular HGB Conc 32.1 g/dL (30.0-36.0); Mean Corpuscular Hemoglobin 30.5 pg (28.0-34.0); Mean Platelet Volume 9.4 fL (7.4-10.4); Monocytes # 0.4 10^3/uL (0.2-0.9); Monocytes % 5.5 %; Neutrophils # 3.48 10^3/uL (1.8-7.7); Neutrophils % 50.8 %; Nucleated Red Blood Cells % 0 %; Platelet Count 222 10^3/cmm (130-400); Red Blood Count 4.39 10^6/uL (4.1-5.3); Red Cell Distribution Width 12.7 % (12.1-15.1); White Blood Count 6.9 10^3/uL (4.0-10.0)
[2022-05-14 08:50] LABS: Alanine Aminotransferase 8 U/L (0-33); Albumin Level 4.1 g/dL (3.5-5.2); Alkaline Phosphatase 82 U/L (35-105); Anion Gap 11.3 (5-19); Aspartate Amino Transferase 16 U/L (0-32); Blood Urea Nitrogen 17 mg/dL (6-20); Calcium 9.4 mg/dL (8.5-10.5); Carbon Dioxide 28 mmol/L (22-29); Chloride 106 mmol/L (98-107); Globulin 2.5 g/dL (1.3-4.6); Glomerular Filtration Rate 86.9 mL/min (90-130); Glucose 90 mg/dL (65-115); Osmolality Calculated 293 mOsm/kg (285-295); Potassium 4.3 mmol/L (3.5-5.1); Sodium 141 mmol/L (136-145); Total Bilirubin 0.2 mg/dL (0.15-1.2); Total Protein 6.6 g/dL (6.6-8.7)
[2022-05-14 11:01] LABS: 25 Hydroxy Vitamin D 21 ng/mL (30-100)
== END 2022-05-22 23:59 | disposition home or self-care (01) ==
PROVIDERS: Nurse Practitioner; PCP Family Medicine; Visit Provider Internal Medicine Medical Oncology
DX: Z08 Encounter for follow-up examination after completed treatment for malignant neoplasm (principal); Z85.841 Personal history of malignant neoplasm of brain; Z85.3 Personal history of malignant neoplasm of breast; Z90.12 Acquired absence of left breast and nipple; M19.90 Unspecified osteoarthritis, unspecified site; G62.0 Drug-induced polyneuropathy; T45.1X5A Adverse effect of antineoplastic and immunosuppressive drugs, initial encounter; G89.29 Other chronic pain; Z79.891 Long term (current) use of opiate analgesic; Z79.899 Other long term (current) drug therapy; F17.210 Nicotine dependence, cigarettes, uncomplicated; Z92.21 Personal history of antineoplastic chemotherapy; Z92.3 Personal history of irradiation
CPT/HCPCS: 36591; 80053; 82306; 85025; 99214

== ENCOUNTER → 2022-05-24 09:25 | Outpatient (BNVA) | payer MEDICARE, MEDICAID, SELFPAY | PROVIDERS: PCP Family Medicine; Visit Provider Urology | DX: N20.0 Calculus of kidney (principal); N30.90 Cystitis, unspecified without hematuria | CPT/HCPCS: 74018; 81003; 99213 ==

== ENCOUNTER 2022-06-11 09:35 | Oncology outpatient (recurring) (ONCR) | payer MEDICARE, MEDICAID, SELFPAY ==
[2022-06-11 10:04] VITALS: BP 160/85; PULSE 67; RESP 16; TEMP 36.6; O2SAT 96
== END 2022-06-22 23:59 | disposition home or self-care (01) ==
PROVIDERS: PCP Family Medicine; Visit Provider Internal Medicine Medical Oncology
DX: Z45.2 Encounter for adjustment and management of vascular access device (principal); Z95.828 Presence of other vascular implants and grafts
CPT/HCPCS: 96523

== ENCOUNTER 2022-07-09 09:51 | Oncology outpatient (recurring) (ONCR) | payer MEDICARE, MEDICAID, SELFPAY | END 2022-07-22 23:59 | disposition home or self-care (01) | PROVIDERS: PCP Family Medicine; Visit Provider Internal Medicine Medical Oncology | DX: Z45.2 Encounter for adjustment and management of vascular access device (principal); Z95.828 Presence of other vascular implants and grafts | CPT/HCPCS: 96523 ==

== ENCOUNTER 2022-07-09 11:28 | Outpatient (CLI) | payer MEDICARE, MEDICAID, SELFPAY ==
[2022-07-09] MEDS: iohexol 350 mg/mL 500 mL Btl (per mL) PO (12:17)
[2022-07-09] MEDS: iohexol 350 mg/mL 500 mL Btl (per mL) IV (12:17)
--- NOTE | 2022-07-09 12:30 | CT_ITS ---
WS: [id number] CT CHEST, ABDOMEN AND PELVIS WITH AND WITHOUT CONTRAST. HISTORY: followup June 2020 scan, history of breast cancer and Walls's sarcoma. TECHNIQUE: Pre and post imaging. Contiguous 5 mm axial imaging performed through the chest, abdomen a nd pelvis with and without IV contrast, oral contrast has been provided. Coronal and sagittal reforma ts chest. Coronal and sagittal reformats through the abdomen and pelvis. All CT scans at [facility] use at least one of these dose optimization techniques: automated exposure control; mA and/or kV adjustment per patient size (includes targeted exams where dose is matched to clinical indication) ; or iterative reconstruction. CONTRAST: Omnipaque 350; 100 mL IV. DLP: 1157.40 mGy.cm COMPARISON: 06/24/2020, 10/15/[address]: No pulmonary nodules or mass. No pneumonia. No mediastinal or hilar adenopathy. No axillary lymph nodes. Mild atherosclerosis aorta. Normal pulmonary artery. Prior LEFT mastectomy. Abdomen CT: Normal liver and spleen and gallbladder. Mild pancreatic atrophy. Very tiny nodule in the RIGHT adrenal gland is stable since 10/15/2021. No metastatic lesions in the adrenal glands. Mild alexis al atrophy with no obstruction. No solid mass. Mild atherosclerosis aorta. Stomach and small bowel are negative. Large duodenal diverticulum. No colon obstruction. Normal appen liz. Pelvic CT: Well-distended urinary bladder. Uterus is midline. No adenopathy. Postsurgical changes in the LEFT inguinal region. Degenerative disc disease at L5-S1. CT[facility] [place] [place] [id number] IMPRESSION: 1. No metastatic adenopathy within the chest, abdomen or pelvis. 2. No metastatic nodules within the lungs. 3. No ascites. 4. Prior LEFT mastectomy. 5. Stable postsurgical changes at the LEFT groin.
== END 2022-07-09 11:29 | disposition home or self-care (01) ==
LOC: RAD 11:29
PROVIDERS: PCP Family Medicine; Visit Provider Nurse Practitioner
DX: C41.9 Malignant neoplasm of bone and articular cartilage, unspecified (principal)
CPT/HCPCS: 71260; 74178; Q9967

== ENCOUNTER 2022-08-06 07:57 | Oncology outpatient (recurring) (ONCR) | payer MEDICARE, MEDICAID, SELFPAY ==
--- NOTE | 2022-08-06 08:37 | PC.NURSE ---
lab drawn via RAC x1 attempt, pressure dressing applied, tolerated well.
[2022-08-06 08:42] LABS: Basophils % 0.3 %; Eosinophils # 0.2 10^3/uL (0.0-0.8); Eosinophils % 2.9 %; Hematocrit 38.4 % (37.0-47.0); Hemoglobin 12.7 g/dL (11.5-15.3); Lymphocytes # 2.6 10^3/uL (0.8-4.8); Lymphocytes % 39.3 %; Mean Corpuscular HGB Conc 33.1 g/dL (30.0-36.0); Mean Corpuscular Hemoglobin 30.6 pg (28.0-34.0); Mean Corpuscular Volume 92.5 fl (81-99); Monocytes # 0.4 10^3/uL (0.2-0.9); Neutrophils # 3.35 10^3/uL (1.8-7.7); Neutrophils % 51.2 %; Nucleated Red Blood Cells % 0 %; Platelet Count 204 10^3/cmm (130-400); Red Blood Count 4.15 10^6/uL (4.1-5.3); Red Cell Distribution Width 12.9 % (12.1-15.1); White Blood Count 6.5 10^3/uL (4.0-10.0)
[2022-08-06 09:12] LABS: Alanine Aminotransferase 7 U/L (0-33); Alkaline Phosphatase 81 U/L (35-105); Anion Gap 13.7 (5-19); Aspartate Amino Transferase 13 U/L (0-32); Blood Urea Nitrogen 16 mg/dL (6-20); Calcium 9.2 mg/dL (8.5-10.5); Carbon Dioxide 26 mmol/L (22-29); Chloride 106 mmol/L (98-107); Globulin 2.1 g/dL (1.3-4.6); Glomerular Filtration Rate 103.8 mL/min (90-130); Glucose 121 mg/dL (65-115); Osmolality Calculated 296 mOsm/kg (285-295); Potassium 3.7 mmol/L (3.5-5.1); Sodium 142 mmol/L (136-145); Total Bilirubin 0.2 mg/dL (0.15-1.2); Total Protein 6.1 g/dL (6.6-8.7)
== END 2022-08-22 23:59 | disposition home or self-care (01) ==
PROVIDERS: PCP Family Medicine; Visit Provider Internal Medicine Medical Oncology
DX: Z08 Encounter for follow-up examination after completed treatment for malignant neoplasm; Z85.848 Personal history of malignant neoplasm of other parts of nervous tissue; Z85.3 Personal history of malignant neoplasm of breast; Z90.13 Acquired absence of bilateral breasts and nipples; M19.90 Unspecified osteoarthritis, unspecified site; G62.0 Drug-induced polyneuropathy; T45.1X5A Adverse effect of antineoplastic and immunosuppressive drugs, initial encounter; Z79.891 Long term (current) use of opiate analgesic; Z79.899 Other long term (current) drug therapy; Z92.21 Personal history of antineoplastic chemotherapy; Z92.3 Personal history of irradiation
CPT/HCPCS: 36591; 80053; 85025; 99214; J1642

== ENCOUNTER 2022-08-21 10:16 | Outpatient (CLI) | payer MEDICARE, MEDICAID, SELFPAY ==
--- NOTE | 2022-08-21 10:24 | XR_ITS ---
WS: [id number] THORACIC SPINE TECHNIQUE: AP and lateral views are performed. HISTORY: M54.9 - Dorsalgia, unspecified COMPARISON: None available. Mild S-shaped curvature thoracic spine. Pedicles are all identified. Slight increase in the thoracic kyphosis. There is a new compression fracture at T11 which was not present on the CT from 07/09/2022. There is mild anterior wedging by approximately 10% with sclerosis along the superior endplate. No ad ditional fractures. RIGHT subclavian Port-A-Cath with tip in the distal SVC. XR/XR thoracic spine 3V* [id number] IMPRESSION: 1. New T11 compression fracture approximately 10%. New since the CT of 07/10/19 23. 2. No destructive bone lesions.
--- NOTE | 2022-08-21 10:24 | XR_ITS ---
WS: [id number] LUMBAR SPINE: 3 VIEWS TECHNIQUE: AP, lateral and L5-S1 spot. HISTORY: M54.9 - Dorsalgia, unspecified COMPARISON: Radiographs 07/03/2021 Lumbar vertebra are normally aligned. Moderate disc space narrowing with vacuum disc phenomenon at L5-S1. No fractures. No destructive bone lesions. SI joints are symmetric bilaterally. No soft tissue abnormalities. XR/XR lumbar spine 2-3V* [id number] IMPRESSION: 1. Moderate degenerative disc disease at L5-S1. 2. No destructive bone lesion or fracture identified.
== END 2022-08-21 10:17 | disposition home or self-care (01) ==
LOC: RAD 10:20
PROVIDERS: PCP Family Medicine; Visit Provider Nurse Practitioner Family
DX: S22.089A Unspecified fracture of T11-T12 vertebra, initial encounter for closed fracture (principal); M51.37 Other intervertebral disc degeneration, lumbosacral region; M54.9 Dorsalgia, unspecified; G89.29 Other chronic pain; X58.XXXA Exposure to other specified factors, initial encounter
CPT/HCPCS: 72072; 72100

== ENCOUNTER 2022-08-26 11:33 | Emergency (ER) | payer MEDICARE, MEDICAID, SELFPAY ==
[2022-08-26 11:49] VITALS: BP 169/102; PULSE 68; RESP 18; TEMP 36.7; O2SAT 96
--- NOTE | 2022-08-26 12:14 | W.ED.NAVMDI ---
HPI - Nausea/Vomiting/Diarrhea General: Chief complaint: Nausea/Vomiting/Diarrhea Stated complaint: nausea Time Seen by Provider: 08/26/22 11:40 History of Present Illness: Patient presents to the ER with complaints of nausea vomiting. Patient states the last time she was at her doctor's office to change a bunch of her medicines around she ended up stopping her gabapentin and she thinks this was the cause of all her nausea and vomiting. However upon looking at the patient's chart I do not see where her PCP or her oncologist upper gabapentin and patient may have actually stopped this on her own. MD elicited complaint: nausea and vomiting Onset (ago): day(s) Description of vomiting: watery Associated nausea: Yes Associated abdominal pain: No Exacerbating factors: eating Relieving factors: none Associated symtoms: Reports nausea Review of Systems General: Reports: 10 or more systems reviewed and unremarkable except in HPI and below GI: Reports: nausea PFSH ED PFSH: Medical History Breast cancer Chronic low back pain with bilateral sciatica Chronic steroid use Degenerative arthritis Depression Walls's sarcoma GERD (gastroesophageal reflux disease) History of nephrolithiasis Hyperlipidemia Surgical History History of bilateral mastectomy History of delivery x 2 History of excision of mass (09/2016) 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 History of surgery on right wrist History of tubal ligation Family History Father , IN HIS 30'S Accident Mother , AT 65 Cancer Other Rheumatoid arthritis Stroke Social History Smoking and tobacco status: current every day smoker cigarettes Packs smoked per day: 1 Alcohol intake: never Substance/Drug Use: never Marital status: Current occupational status: disabled Physical Exam Const: COMMON NORMALS: no acute distress, average body habitus, patient oriented x3, no limitations, healthy appearing and well nourished HENMT: COMMON NORMALS: normocephalic, atraumatic, hearing grossly normal bilaterally, external ears normal, Normal external nose present and moist oral mucous membranes HEAD & SCALP: normocephalic and atraumatic NOSE: Normal external nose present EXTERNAL EAR: Yes external ears normal Eye: COMMON NORMALS: Equal, round and reactive pupils present, EOMs intact bilaterally, conjunctivae normal and no scleral icterus CONJUNCTIVA: Yes conjunctivae normal PUPIL: Yes Equal, round and reactive pupils present Neck/C-Spine: COMMON NORMALS: full ROM, no lymphadenopathy, supple, no meningeal signs, no JVD and Thyroid normal THYROID: Thyroid normal Lymph: LYMPHATIC: no lymphadenopathy noted and no lymphedema noted Chest: COMMONS NORMALS: normal inspection of the chest and normal palpation of entire chest wall Resp: COMMON NORMALS: normal respiratory effort, No retractions, No use of accessory muscles and clear to auscultation bilaterally AUSCULTATION: clear to auscultation bilaterally Cardio: COMMON NORMALS: no JVD, regular rate, regular rhythm, S1 normal heart sound present and S2 normal heart sound present RATE: regular rate RHYTHM: regular rhythm HEART SOUNDS: S1 normal heart sound present and S2 normal heart sound present GI: COMMON NORMALS: Normal to inspection, nondistended, normoactive bowel sounds present, Soft to palpation, non-tender, No hepatosplenomegaly present and no masses PALPATION: Yes Soft to palpation and Yes No hepatosplenomegaly present : COMMON NORMALS: Yes no CVA tenderness BLADDER/KIDNEY EXAM: Yes no CVA tenderness Back/Pelvis: COMMON NORMALS: no CVA tenderness Neuro: COMMON NORMALS: patient oriented x3 MENINGEAL SIGNS: Yes no meningeal signs Course Vital Signs: Vital signs: Vital Signs Temperature 98.1 F 08/26/22 11:49 Pulse Rate 68 08/26/22 11:49 Respiratory Rate 18 08/26/22 11:49 Blood Pressure 169/102 08/26/22 11:49 Pulse Oximetry 96 08/26/22 11:49 Oxygen Delivery Me thod Room Air 08/26/22 11:49 MDM - Nausea/Vomiting/Diarrhea Medical Decision Making Patient presents to the ER with complaints of nausea and vomiting not been able to keep any of her medicine down for the last several days. When discussed further about her medications she is unaware but which when she is currently taking, which ones have been DC'd, and upon review of the patient's family practice doctor's chart there medicines do not agree with the patient's list of medicines. Lab work was obtained which was essentially benign. Patient was given 1 L normal saline and 4 mg Zofran patient is sitting in her bed with no acute distress. Patient will be discharged back home with Zofran prescription to follow-up with her primary care doctor to sort out her medicines. Differential Diagnosis Likely gastroenteritis and dehydration; Unlikely traveler's diarrhea, food poisoning, clostridium difficile infection or drug-induced nausea and vomiting Medical Records I reviewed the patient's medical records. Lab Data I reviewed the patient's lab results. 08/26/22 12:35 08/26/22 12:35 Laboratory Results WBC 7.2 10^3/uL (4.0-10.0) 08/26/22 12:35 RBC 4.63 10^6/uL (4.1-5.3) 08/26/22 12:35 Hgb 14.4 g/dL (11.5-15.3) 08/26/22 12:35 Hct 43.4 % (37.0-47.0) 08/26/22 12:35 MCV 93.7 fl (81-99) 08/26/22 12:35 MCH 31.1 pg (28.0-34.0) 08/26/22 12:35 MCHC 33.2 g/dL (30.0-36.0) 08/26/22 12:35 RDW 13.0 % (12.1-15.1) 08/26/22 12:35 Plt Count 271 10^3/cmm (130-400) 08/26/22 12:35 MPV 9.4 fL (7.4-10.4) 08/26/22 12:35 Neut % (Auto) 67.5 % 08/26/22 12:35 Lymph % (Auto) 26.4 % 08/26/22 12:35 [place] % (Auto) 3.8 % 08/26/22 12:35 Eos % (Auto) 1.4 % 08/26/22 12:35 Baso % (Auto) 0.6 % 08/26/22 12:35 Neut # (Auto) 4.83 10^3/uL (1.8-7.7) 08/26/22 12:35 Lymph # (Auto) 1.9 10^3/uL (0.8-4.8) 08/26/22 12:35 [place] # (Auto) 0.3 10^3/uL (0.2-0.9) 08/26/22 12:35 Eos # (Auto) 0.1 10^3/uL (0.0-0.8) 08/26/22 12:35 Baso # (Auto) 0.0 10^3/uL (0.0-0.1) 08/26/22 12:35 Nucleated RBC % (auto) 0 % 08/26/22 12:35 Nucleated RBCs # 0.0 /100WBC 08/26/22 12:35 Sodium 139 mmol/L (136-145) 08/26/22 12:35 Potassium 3.9 mmol/L (3.5-5.1) 08/26/22 12:35 Chloride 101 mmol/L (98-107) 08/26/22 12:35 Carbon Dioxide 25 mmol/L (22-29) 08/26/22 12:35 Anion Gap 16.9 (5-19) 08/26/22 12:35 BUN 16 mg/dL (6-20) 08/26/22 12:35 Creatinine 0.6 mg/dL (0.5-0.9) 08/26/22 12:35 GFR Calculation 103.8 mL/min (90-130) 08/26/22 12:35 Glucose 106 mg/dL (65-115) 08/26/22 12:35 Calculated Osmolality 290 mOsm/kg (285-295) 08/26/22 12:35 Calcium 10.1 mg/dL (8.5-10.5) 08/26/22 12:35 Magnesium 2.2 mg/dL (1.7-2.3) 08/26/22 12:35 Total Bilirubin 0.4 mg/dL (0.15-1.2) 08/26/22 12:35 AST 15 U/L (0-32) 08/26/22 12:35 ALT 11 U/L (0-33) 08/26/22 12:35 Alkaline Phosphatase 118 U/L (35-105) H 08/26/22 12:35 Total Protein 7.6 g/dL (6.6-8.7) 08/26/22 12:35 Albumin 4.5 g/dL (3.5-5.2) 08/26/22 12:35 Globulin 3.1 g/dL (1.3-4.6) 08/26/22 12:35 Discharge Plan Discharge Patient Disposition: Home Clinical Impression: Nausea & vomiting Qualifiers: Vomiting type: unspecified Qualified Code(s): R11.2 - Nausea with vomiting, unspecified Condition: Stable Prescriptions: New ondansetron HCl 4 mg tablet 4 mg PO TID PRN (Reason: nausea and vomiting) Qty: 20 0RF No Action B-complex with vitamin C Capsule 1 cap PO DAILY trazodone 50 mg tablet 50 mg PO BEDTIME Qty: 30 3RF cyclobenzaprine 10 mg tablet 10 mg PO TID PRN (Reason: muscle spasm) Qty: 20 0RF meloxicam 15 mg tablet 15 mg PO DAILY Qty: 30 5RF gabapentin 300 mg capsule 300 mg PO TID Qty: 90 3RF ascorbic acid (vitamin C) 500 mg capsule See Rx Instructions PO DAILY Qty: 30 0RF Rx Instructions: 1 tablet PO daily; estrolibrium See Rx Instructions PO DAILY Qty: 30 0RF Rx Instructions: 1 tablet PO daily; Stool Softener 50 mg capsule 50 mg PO DAILY Qty: 30 0RF Immune Support 250-12.5 mg tablet,chewable See Rx Instructions PO .COMPLEX Qty: 30 0RF Rx Instructions: 1 tablet daily PO; venlafaxine 150 mg capsule,extended release 24hr See Rx Instructions .ROUTE .COMPLEX Qty: 90 3RF Dose Instruction: TAKE ONE CAPSULE BY MOUTH ONCE DAILY Rx Instructions: TAKE ONE CAPSULE BY MOUTH ONCE DAILY ergocalciferol (vitamin D2) 50 mcg (2,000 unit) capsule 100 mcg PO DAILY Qty: 60 6RF famotidine 20 mg tablet 20 mg PO BID Qty: 60 5RF potassium chloride 20 mEq tablet,ER particles/crystals See Rx Instructions .ROUTE .COMPLEX Qty: 30 3RF Dose Instruction: TAKE ONE TABLET BY MOUTH ONCE DAILY Rx Instructions: TAKE ONE TABLET BY MOUTH ONCE DAILY atorvastatin 20 mg tablet See Rx Instructions .ROUTE .COMPLEX Qty: 90 0RF Dose Instruction: TAKE ONE TABLET BY MOUTH ONCE DAILY Rx Instructions: TAKE ONE TABLET BY MOUTH ONCE DAILY oxycodone 15 mg tablet 15 mg PO Q4H PRN (Reason: pain) 30 Days Qty: 180 0RF Rx Instructions: Max of 6 tablets per day Discharge Orders: Discharge ED (Routine); Ordered 08/26/22 Ordered By: Bradley Maurer Referrals: Celio De La Vega DO [Primary Care Provider] - 1 week Patient Instructions: Acute Nausea and Vomiting (DC) Activity Restrictions/Additional Instructions: Please follow-up with your primary care practitioner over the next 1 week. Please take all your medicines and their bottles with you to discuss which ones you should be on which ones you should not be on. Please take the Zofran prescribed from the ER as needed for nausea. Please return to the ER if your symptoms worsen. Coding Level of Care Code ED Director Project Management for Darian Rendon
[2022-08-26] MEDS: sodium chloride 0.9% 1,000 ML 999 ML IV (12:32)
[2022-08-26] MEDS: ondansetron 2 mg/ML SDV 2 mL 4 MG IVP (12:32)
[2022-08-26 12:51] LABS: Basophils % 0.6 %; Eosinophils # 0.1 10^3/uL (0.0-0.8); Eosinophils % 1.4 %; Hematocrit 43.4 % (37.0-47.0); Hemoglobin 14.4 g/dL (11.5-15.3); Lymphocytes # 1.9 10^3/uL (0.8-4.8); Lymphocytes % 26.4 %; Mean Corpuscular HGB Conc 33.2 g/dL (30.0-36.0); Mean Corpuscular Hemoglobin 31.1 pg (28.0-34.0); Mean Corpuscular Volume 93.7 fl (81-99); Mean Platelet Volume 9.4 fL (7.4-10.4); Monocytes # 0.3 10^3/uL (0.2-0.9); Monocytes % 3.8 %; Neutrophils # 4.83 10^3/uL (1.8-7.7); Neutrophils % 67.5 %; Nucleated Red Blood Cells % 0 %; Platelet Count 271 10^3/cmm (130-400); Red Blood Count 4.63 10^6/uL (4.1-5.3); White Blood Count 7.2 10^3/uL (4.0-10.0)
[2022-08-26 13:06] LABS: Alanine Aminotransferase 11 U/L (0-33); Albumin Level 4.5 g/dL (3.5-5.2); Alkaline Phosphatase 118 U/L (35-105); Anion Gap 16.9 (5-19); Aspartate Amino Transferase 15 U/L (0-32); Blood Urea Nitrogen 16 mg/dL (6-20); Calcium 10.1 mg/dL (8.5-10.5); Carbon Dioxide 25 mmol/L (22-29); Chloride 101 mmol/L (98-107); Globulin 3.1 g/dL (1.3-4.6); Glomerular Filtration Rate 103.8 mL/min (90-130); Glucose 106 mg/dL (65-115); Magnesium 2.2 mg/dL (1.7-2.3); Osmolality Calculated 290 mOsm/kg (285-295); Potassium 3.9 mmol/L (3.5-5.1); Sodium 139 mmol/L (136-145); Total Bilirubin 0.4 mg/dL (0.15-1.2); Total Protein 7.6 g/dL (6.6-8.7)
[2022-08-26 13:43] VITALS: BP 182/91; PULSE 66; O2SAT 99
== END 2022-08-26 13:45 | disposition home or self-care (01) ==
PROVIDERS: Emergency Provider Emergency Medicine; PCP Family Medicine
DX: R11.2 Nausea with vomiting, unspecified (principal)
CPT/HCPCS: 80053; 83735; 85025; 96361; 96374; 99284; J2405; J7030

== ENCOUNTER → 2022-09-04 14:56 | Outpatient (BNVA) | payer MEDICARE, MEDICAID, SELFPAY | PROVIDERS: PCP Family Medicine; Visit Provider Nurse Practitioner Family | DX: S22.000A Wedge compression fracture of unspecified thoracic vertebra, initial encounter for closed fracture (principal); X58.XXXA Exposure to other specified factors, initial encounter | CPT/HCPCS: 88175 ==

== ENCOUNTER → 2022-09-06 08:19 | Outpatient (BNVA) | payer MEDICARE, MEDICAID, SELFPAY | PROVIDERS: PCP Family Medicine; Visit Provider Orthopaedic Surgery | DX: S22.000A Wedge compression fracture of unspecified thoracic vertebra, initial encounter for closed fracture (principal); T14.8XXA Other injury of unspecified body region, initial encounter; X58.XXXA Exposure to other specified factors, initial encounter | CPT/HCPCS: 99204 ==

== ENCOUNTER 2022-09-06 09:31 | Oncology outpatient (recurring) (ONCR) | payer MEDICARE, MEDICAID, SELFPAY ==
[2022-09-06 09:45] VITALS: BP 176/91; PULSE 54; RESP 18; TEMP 37; O2SAT 97
== END 2022-09-21 23:59 | disposition home or self-care (01) ==
PROVIDERS: PCP Family Medicine; Visit Provider Internal Medicine Medical Oncology
DX: Z45.2 Encounter for adjustment and management of vascular access device (principal); Z95.828 Presence of other vascular implants and grafts
CPT/HCPCS: J1642

== ENCOUNTER → 2022-09-13 13:39 | Outpatient (BNVA) | payer MEDICARE, MEDICAID, SELFPAY | PROVIDERS: PCP Family Medicine; Visit Provider Nurse Practitioner Family | DX: R30.0 Dysuria (principal) | CPT/HCPCS: 81003 ==

== ENCOUNTER 2022-09-14 23:30 | Inpatient (IN) | payer MEDICARE, MEDICAID, SELFPAY ==
[2022-09-14 23:49] VITALS: BP 198/75; PULSE 89; RESP 18; TEMP 36.7; O2SAT 98; BMI 25.4
[2022-09-15] VITALS (23 sets, daily range): BP systolic 120–208; BP diastolic 66–94; PULSE 47–98; RESP 15–22; TEMP 36.4–37.1; O2SAT 88–99
--- NOTE | 2022-09-15 00:06 | W.ED.FEMALGU ---
Documented by User: SHANNON Gongora 09/15/22 01:08 HPI - Female Genitourinary General: Chief complaint: Urogenital-Female Stated complaint: uti, painful Time Seen by Provider: 09/14/22 23:32 Source: patient Mode of arrival: ambulatory Limitations: no limitations History of Present Illness: Patient is a 56-year-old female presents to ED today with a complaint of right-sided abdominal/pelvic pain as well as dysuria, urinary frequency and urgency. Patient states she underwent Pap smear several days ago by her primary care provider. She was told everything looked normal. She states she was not having any pain or discomfort at that time. She states approximately 2 days later she began developing symptoms. She contacted her primary care provider who placed her on Macrobid and Pyridium. She states she has had one dose of these medications. Patient states she does have a history of kidney/ureter stones and states the pain on her right side feels similar. She has not been running fevers. No vomiting. MD elicited complaint: dysuria, pelvic pain and other (abdominal pain) Pertinent past history: recurrent UTIs and other (kidney/ureter stones) Onset (ago): day(s) Severity: severe Quality of pain: burning Consistency: constant Vaginal discharge: none Vaginal bleeding: none Urinary symptoms: Dysuria, Frequency and Urgency Exacerbating factors: urination Relieving factors: none Associated symptoms: Reports abdominal pain and nausea; Deny headache(s) Treatment prior to arrival: other (abx) Sexual activity: No Patient : No Review of Systems Const: Denies: fever(s), chills, body aches, fatigue or malaise Card: Denies: chest pain Resp: Denies: dyspnea GI: Reports: abdominal pain and nausea; Denies: vomiting or diarrhea : Reports: dysuria, urinary frequency, urinary urgency and pelvic pain; Denies: flank pain, difficulty voiding, urinary hesitancy or hematuria Musc: Denies: neck pain, back pain, extremity pain or joint pain Skin/Breast: Denies: rash Neuro: Denies: headache(s) or dizziness PFS ED PFSH: Medical History Breast cancer Chronic low back pain with bilateral sciatica Chronic steroid use Degenerative arthritis Depression Walls's sarcoma GERD (gastroesophageal reflux disease) History of nephrolithiasis Hyperlipidemia Surgical History History of bilateral mastectomy History of delivery x 2 History of excision of mass (09/2016) 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 History of surgery on right wrist History of tubal ligation Family History Father , IN HIS 30'S Accident Mother , AT 65 Cancer Other Rheumatoid arthritis Stroke Social History Smoking and tobacco status: current every day smoker cigarettes Packs smoked per day: 1 Alcohol intake: never Substance/Drug Use: never Marital status: Current occupational status: disabled Physical Exam Const: COMMON NORMALS: average body habitus, patient oriented x3, no limitations, healthy appearing, alert and well nourished GENERAL APPEARANCE: cooperative and in distress (appears uncomfortable) ORIENTATION/CONSCIOUSNESS: Yes awake, Yes oriented to person, Yes oriented to place and Yes oriented to time Resp: COMMON NORMALS: normal respiratory effort and clear to auscultation bilaterally AUSCULTATION: clear to auscultation bilaterally Cardio: COMMON NORMALS: regular rate and regular rhythm RATE: regular rate RHYTHM: regular rhythm GI: COMMON NORMALS: Soft to palpation INSPECTION: Yes normal to inspection AUSCULTATION: Yes normoactive bowel sounds PALPATION: Yes Soft to palpation, Yes Tenderness to palpation present (GI) Details: RLQ, No Guarding due to palpation present (GI) and No Rigid due to palpation : COMMON NORMALS: Yes no CVA tenderness BLADDER/KIDNEY EXAM: Yes no CVA tenderness Back/Pelvis: COMMON NORMALS: no CVA tenderness Extremity: COMMON NORMALS: normal to inspection GENERAL: Yes normal exam except as noted Neuro: PRAMOD COMA SCALE: document GCS findings [place] coma scale eye opening: Spontaneous [place] coma scale verbal response: Orientated Pramod coma scale motor response: Obey commands [place] coma scale total score: 15 COMMON NORMALS: patient oriented x3, moves all extremities, no focal motor deficits and no sensory deficits noted SENSORIUM/ORIENTATION: Yes alert, Yes oriented to person, Yes oriented to place and Yes oriented to time Skin: COMMON NORMALS: no rashes or lesions noted GENERAL SKIN EXAM: no rashes or lesions noted Course ED course: Given patient's pain on her right side and history of kidney/ureter stones CT imaging will be obtained to rule out a distal ureter stone as her urine did look infected and this could potentially policy change clerk. UA did show 2+ blood. They did not comment on any color interference however there is a possibility that this is mis-reported given her Pyridium use. Vital Signs: Vital signs: Vital Signs Temperature 98.1 F 09/14/22 23:49 Pulse Rate 63 09/15/22 02:00 Respiratory Rate 17 09/15/22 02:00 Blood Pressure 164/90 09/15/22 02:00 Pulse Oximetry 95 09/15/22 02:00 Oxygen Delivery Me thod Room Air 09/15/22 01:52 Oxygen Flow Rate 2 09/15/22 01:52 MDM - Female Lab Data 09/15/22 00:55 09/15/22 00:55 Radiology Impressions Abdomen/Pelvis CT 09/15/22 00:26 IMPRESSION: Obstructing stones at the right UVJ causing severe hydroureteronephrosis. Nonobstructing left renal calculi. Hepatomegaly. Other surgical changes in the left inguinal region as described above. Correlate clinically. Laboratory Results WBC 16.1 10^3/uL (4.0-10.0) H 09/15/22 00:55 RBC 4.37 10^6/uL (4.1-5.3) 09/15/22 00:55 Hgb 13.3 g/dL (11.5-15.3) 09/15/22 00:55 Hct 41.6 % (37.0-47.0) 09/15/22 00:55 MCV 95.2 fl (81-99) 09/15/22 00:55 MCH 30.4 pg (28.0-34.0) 09/15/22 00:55 MCHC 32.0 g/dL (30.0-36.0) 09/15/22 00:55 RDW 13.3 % (12.1-15.1) 09/15/22 00:55 Plt Count 275 10^3/cmm (130-400) 09/15/22 00:55 MPV 9.2 fL (7.4-10.4) 09/15/22 00:55 Neut % (Auto) 86.7 % 09/15/22 00:55 Lymph % (Auto) 9.4 % 09/15/22 00:55 [place] % (Auto) 3.3 % 09/15/22 00:55 Eos % (Auto) 0.1 % 09/15/22 00:55 Baso % (Auto) 0.2 % 09/15/22 00:55 Neut # (Auto) 13.98 10^3/uL (1.8-7.7) H 09/15/22 00:55 Lymph # (Auto) 1.5 10^3/uL (0.8-4.8) 09/15/22 00:55 [place] # (Auto) 0.5 10^3/uL (0.2-0.9) 09/15/22 00:55 Eos # (Auto) 0.0 10^3/uL (0.0-0.8) 09/15/22 00:55 Baso # (Auto) 0.0 10^3/uL (0.0-0.1) 09/15/22 00:55 Nucleated RBC % (auto) 0 % 09/15/22 00:55 Nucleated RBCs # 0.0 /100WBC 09/15/22 00:55 Sodium 138 mmol/L (136-145) 09/15/22 00:55 Potassium 4.7 mmol/L (3.5-5.1) 09/15/22 00:55 Chloride 101 mmol/L (98-107) 09/15/22 00:55 Carbon Dioxide 27 mmol/L (22-29) 09/15/22 00:55 Anion Gap 14.7 (5-19) 09/15/22 00:55 BUN 24 mg/dL (6-20) H 09/15/22 00:55 Creatinine 1.1 mg/dL (0.5-0.9) H 09/15/22 00:55 GFR Calculation 51.6 mL/min (90-130) L 09/15/22 00:55 Glucose 148 mg/dL (65-115) H 09/15/22 00:55 Calculated Osmolality 293 mOsm/kg (285-295) 09/15/22 00:55 Calcium 9.6 mg/dL (8.5-10.5) 09/15/22 00:55 Urine Color Dark yellow (Yellow) 09/14/22 23:50 Urine Appearance Cloudy (CLEAR) A 09/14/22 23:50 Urine pH 8 (5-7) H 09/14/22 23:50 Ur Specific [place] 1.015 (1.005-1.030) 09/14/22 23:50 Urine Protein Trace (Negative) 09/14/22 23:50 Urine Glucose (UA) Norm (Normal) 09/14/22 23:50 Urine Ketones Negative (Negative) 09/14/22 23:50 Urine Blood 2+ (Negative) H 09/14/22 23:50 Urine Nitrate Positive (Negative) H 09/14/22 23:50 Urine Bilirubin 1+ (Negative) H 09/14/22 23:50 Prot Sulfosalicylic Acd Negative (Negative) 09/14/22 23:50 Urine Urobilinogen 1 mg/dL (Negative) H 09/14/22 23:50 Ur Leukocyte Esterase Negative (Negative) 09/14/22 23:50 Urine RBC 5-10 /hpf (0-2) H 09/14/22 23:50 Urine WBC 0-4 /hpf (0-5) H 09/14/22 23:50 Ur Squamous Epith Cells None /hpf (0-5) 09/14/22 23:50 Amorphous Sediment Not Reportable 09/14/22 23:50 Urine Bacteria 2+ /hpf (NONE) H 09/14/22 23:50 Urine Mucus 2+ /hpf 09/14/22 23:50 Discharge Plan Discharge Patient Disposition: Admitted As Inpatient Clinical Impression: Ureterolithiasis, Pyelonephritis Coding Level of Care Code ED Knot Bumper for Chg Fwd Documented by User: Richie Wilcox DO 09/15/22 03:51 HPI - Female Genitourinary General: Chief complaint: Urogenital-Female Stated complaint: uti, painful Time Seen by Provider: 09/14/22 23:32 PFSH ED PFSH: Medical History Breast cancer Chronic low back pain with bilateral sciatica Chronic steroid use Degenerative arthritis Depression Walls's sarcoma GERD (gastroesophageal reflux disease) History of nephrolithiasis Hyperlipidemia Surgical History History of bilateral mastectomy History of delivery x 2 History of excision of mass (09/2016) 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 History of surgery on right wrist History of tubal ligation Family History Father , IN HIS 30'S Accident Mother , AT 65 Cancer Other Rheumatoid arthritis Stroke Social History Smoking and tobacco status: current every day smoker cigarettes Packs smoked per day: 1 Alcohol intake: never Substance/Drug Use: never Marital status: Current occupational status: disabled Physical Exam Neuro: PRAMOD COMA SCALE: document GCS findings [place] coma scale total score: 15 Course Vital Signs: Vital signs: Vital Signs Temperature 98.1 F 09/14/22 23:49 Pulse Rate 63 09/15/22 02:00 Respiratory Rate 17 09/15/22 02:00 Blood Pressure 164/90 09/15/22 02:00 Pulse Oximetry 95 09/15/22 02:00 Oxygen Delivery Me thod Room Air 09/15/22 01:52 Oxygen Flow Rate 2 09/15/22 01:52 [facility] - Female Medical Decision Making 56-year-old female originally seen by Mrs. Mane?RAYMUNDO Oconnell. I agree with her history, evaluation, and management. I have examined the patient myself, and have performed bay parts of the evaluation and management. This lady has obstructive uropathy from 2 stones at the right UVJ. Hydronephrosis is severe. There is inflammatory change of the kidney. Her white blood cell count is 16. She is significantly hypertensive, as high as over 200 systolic. Currently 180 systolic. She has been given antihypertensive medication pain medication. Her pain is more controlled, but she still having pain. She has been vomiting. Given the severity of the hydronephrosis, potential for partially treated pyelonephritis, as she has had a couple of doses of antibiotics, she will be admitted. Urology was consulted, and agrees to see the patient. Hospitalist will see the patient in the ER. She is covered with IV Zosyn Lab Data 09/15/22 00:55 09/15/22 00:55 Radiology Impressions Abdomen/Pelvis CT 09/15/22 00:26 IMPRESSION: Obstructing stones at the right UVJ causing severe hydroureteronephrosis. Nonobstructing left renal calculi. Hepatomegaly. Other surgical changes in the left inguinal region as described above. Correlate clinically. Laboratory Results WBC 16.1 10^3/uL (4.0-10.0) H 09/15/22 00:55 RBC 4.37 10^6/uL (4.1-5.3) 09/15/22 00:55 Hgb 13.3 g/dL (11.5-15.3) 09/15/22 00:55 Hct 41.6 % (37.0-47.0) 09/15/22 00:55 MCV 95.2 fl (81-99) 09/15/22 00:55 MCH 30.4 pg (28.0-34.0) 09/15/22 00:55 MCHC 32.0 g/dL (30.0-36.0) 09/15/22 00:55 RDW 13.3 % (12.1-15.1) 09/15/22 00:55 Plt Count 275 10^3/cmm (130-400) 09/15/22 00:55 MPV 9.2 fL (7.4-10.4) 09/15/22 00:55 Neut % (Auto) 86.7 % 09/15/22 00:55 Lymph % (Auto) 9.4 % 09/15/22 00:55 [place] % (Auto) 3.3 % 09/15/22 00:55 Eos % (Auto) 0.1 % 09/15/22 00:55 Baso % (Auto) 0.2 % 09/15/22 00:55 Neut # (Auto) 13.98 10^3/uL (1.8-7.7) H 09/15/22 00:55 Lymph # (Auto) 1.5 10^3/uL (0.8-4.8) 09/15/22 00:55 [place] # (Auto) 0.5 10^3/uL (0.2-0.9) 09/15/22 00:55 Eos # (Auto) 0.0 10^3/uL (0.0-0.8) 09/15/22 00:55 Baso # (Auto) 0.0 10^3/uL (0.0-0.1) 09/15/22 00:55 Nucleated RBC % (auto) 0 % 09/15/22 00:55 Nucleated RBCs # 0.0 /100WBC 09/15/22 00:55 Sodium 138 mmol/L (136-145) 09/15/22 00:55 Potassium 4.7 mmol/L (3.5-5.1) 09/15/22 00:55 Chloride 101 mmol/L (98-107) 09/15/22 00:55 Carbon Dioxide 27 mmol/L (22-29) 09/15/22 00:55 Anion Gap 14.7 (5-19) 09/15/22 00:55 BUN 24 mg/dL (6-20) H 09/15/22 00:55 Creatinine 1.1 mg/dL (0.5-0.9) H 09/15/22 00:55 GFR Calculation 51.6 mL/min (90-130) L 09/15/22 00:55 Glucose 148 mg/dL (65-115) H 09/15/22 00:55 Calculated Osmolality 293 mOsm/kg (285-295) 09/15/22 00:55 Calcium 9.6 mg/dL (8.5-10.5) 09/15/22 00:55 Urine Color Dark yellow (Yellow) 09/14/22 23:50 Urine Appearance Cloudy (CLEAR) A 09/14/22 23:50 Urine pH 8 (5-7) H 09/14/22 23:50 Ur Specific [place] 1.015 (1.005-1.030) 09/14/22 23:50 Urine Protein Trace (Negative) 09/14/22 23:50 Urine Glucose (UA) Norm (Normal) 09/14/22 23:50 Urine Ketones Negative (Negative) 09/14/22 23:50 Urine Blood 2+ (Negative) H 09/14/22 23:50 Urine Nitrate Positive (Negative) H 09/14/22 23:50 Urine Bilirubin 1+ (Negative) H 09/14/22 23:50 Prot Sulfosalicylic Acd Negative (Negative) 09/14/22 23:50 Urine Urobilinogen 1 mg/dL (Negative) H 09/14/22 23:50 Ur Leukocyte Esterase Negative (Negative) 09/14/22 23:50 Urine RBC 5-10 /hpf (0-2) H 09/14/22 23:50 Urine WBC 0-4 /hpf (0-5) H 09/14/22 23:50 Ur Squamous Epith Cells None /hpf (0-5) 09/14/22 23:50 Amorphous Sediment Not Reportable 09/14/22 23:50 Urine Bacteria 2+ /hpf (NONE) H 09/14/22 23:50 Urine Mucus 2+ /hpf 09/14/22 23:50 Discharge Plan Discharge Patient Disposition: Admitted As Inpatient Clinical Impression: Ureterolithiasis, Pyelonephritis Coding Level of Care Code ED Knot Bumper for Darian Rendon
[2022-09-15 00:15] LABS: Blood Urine 2+ (Negative); Glucose Urine UA Norm (Normal); Ketones Urine Negative (Negative); Nitrate Urine Positive (Negative); Protein Urine Trace (Negative); Specific Gravity, Urine 1.015 (1.005-1.030); Urine Appearance Cloudy (CLEAR); Urine Color Dark Yellow (Yellow); pH Urine 8 (5-7)
[2022-09-15 00:16] LABS: Add Urine Culture? Yes; Add Urine Microscopic? YES; Bacteria Urine 2+ /hpf; Bilirubin Urine 1+ (Negative); Leukocyte Esterase Urine Negative (Negative); Mucus Urine 2+ /hpf; Sulfosalicylic Acid Urine Negative (Negative); Urobilinogen Urine 1 mg/dL (Negative); WBC Urine 0-4 /hpf (0-5)
--- NOTE | 2022-09-15 00:26 | CTR_ITS ---
PROCEDURE INFORMATION: Exam: CT Abdomen And Pelvis Without Contrast Exam date and time: 09/15/2022 12:38 AM Age: 56 years old Clinical indication: Pain and abnormal findings; Abnormal lab test; Other: Hematuria/bacteriuria; Abdominal pain; Localized; Right; Prior surgery; Surgery date: 6+ months; Surgery type: Csection; Patient HX: RT sided abd/pelvic pain with hematuria and bacteriuria. ; Additional info: R abdominal/pelvic pain; UTI TECHNIQUE: Imaging protocol: Computed tomography of the abdomen and pelvis without contrast. Radiation optimization: All CT scans at this facility use at least one of these dose optimization techniques: automated exposure control; mA and/or kV adjustment per patient size (includes targeted exams where dose is matched to clinical indication); or iterative reconstruction. REPORTING DATA: Count of CT and Cardiac NM exams in prior 12 months: This patient has received 3 known CTs and 0 known cardiac nuclear medicine studies in the 12 months prior to the current study. COMPARISON: CT chest abd pel wo/w con 07/09/2022 12:51 PM RADIATION DOSE METRICS: Total DLP (mGy-cm): 550.1 FINDINGS: Liver: The liver is enlarged, measuring 19.3 cm. Gallbladder and bile ducts: Normal. No calcified stones. No ductal dilation. Pancreas: Normal. No ductal dilation. Spleen: Normal. No splenomegaly. Adrenal glands: Normal. No mass. Kidneys and ureters: There are nonobstructing calculi in the left kidney. There are 2 small stones at the right UVJ, measuring 3.2 mm and 3.8 mm, causing severe hydroureteronephrosis and perinephric inflammation. Stomach and bowel: Unremarkable. No obstruction. No mucosal thickening. Appendix: No evidence of appendicitis. Intraperitoneal space: Unremarkable. No free air. No significant fluid collection. Vasculature: Unremarkable. No abdominal aortic aneurysm. Lymph nodes: Unremarkable. No enlarged lymph nodes. Urinary bladder: Unremarkable as visualized. Reproductive: Unremarkable as visualized. Bones/joints: Unremarkable. No acute fracture. Soft tissues: There are surgical clips in the superficial soft tissues of the left inguinal region. CT/CT kidney stone [id number] IMPRESSION: Obstructing stones at the right UVJ causing severe hydroureteronephrosis. Nonobstructing left renal calculi. Hepatomegaly. Other surgical changes in the left inguinal region as described above. Correlate clinically.
[2022-09-15 01:00] LABS: Basophils % 0.2 %; Eosinophils % 0.1 %; Hematocrit 41.6 % (37.0-47.0); Hemoglobin 13.3 g/dL (11.5-15.3); Lymphocytes # 1.5 10^3/uL (0.8-4.8); Lymphocytes % 9.4 %; Mean Corpuscular Hemoglobin 30.4 pg (28.0-34.0); Mean Corpuscular Volume 95.2 fl (81-99); Mean Platelet Volume 9.2 fL (7.4-10.4); Monocytes # 0.5 10^3/uL (0.2-0.9); Monocytes % 3.3 %; Neutrophils # 13.98 10^3/uL (1.8-7.7); Neutrophils % 86.7 %; Nucleated Red Blood Cells % 0 %; Platelet Count 275 10^3/cmm (130-400); Red Blood Count 4.37 10^6/uL (4.1-5.3); Red Cell Distribution Width 13.3 % (12.1-15.1); White Blood Count 16.1 10^3/uL (4.0-10.0)
[2022-09-15] MEDS: sodium chloride 0.9% 1,000 ML 999 ML IV (01:19)
[2022-09-15 01:21] LABS: Blood Urea Nitrogen 24 mg/dL (6-20); Calcium 9.6 mg/dL (8.5-10.5); Carbon Dioxide 27 mmol/L (22-29); Chloride 101 mmol/L (98-107); Glomerular Filtration Rate 51.6 mL/min (90-130); Glucose 148 mg/dL (65-115); Osmolality Calculated 293 mOsm/kg (285-295); Sodium 138 mmol/L (136-145)
[2022-09-15] MEDS: ondansetron 2 mg/ML SDV 2 mL 4 MG IVP (01:24)
[2022-09-15] MEDS: morphine 4 mg/mL SDV 1 mL IVP (01:26)
[2022-09-15 01:30] LABS: Anion Gap 14.7 (5-19); Creatinine Clr Calc Pharmacy 62.6167; Potassium 4.7 mmol/L (3.5-5.1)
[2022-09-15] MEDS: hyDRALAzine 20 mg/mL INJ 1 mL 10 MG IVP (01:53)
[2022-09-15] MEDS: amlodipine 10 mg Tablet PO (02:44)
[2022-09-15] MEDS: enalaprilat 1.25 mg/mL Inj IVP (02:45)
--- NOTE | 2022-09-15 04:15 | PM.HP ---
Providers/Chief Complaint Admitting Physician: Shannon Montilla MD Primary Care Provider: Celio De La Vega DO Chief Complaint: uti, painful History of Present Illness Naya Ferguson is a 56 year old female with history of breast cancer, depression, GERD, Walls sarcoma, hyperlipidemia, kidney stones, chronic steroid use presented to the hospital today with complaint of right-sided flank pain accompanied by dysuria, increased urinary frequency and urgency. He states he has a history of kidney stones in the past.. She went to see her primary care doctor at which point she had a Pap smear and she was also placed on Macrobid and Pyridium. She has only had 1 dose of these medications so far. She says the pain feels like when she had a kidney stone the last time. Denies any fevers at home, denies nausea vomiting diarrhea.She states she does have frequent UTI's and kidney stones but last one was many moons ago . Most recent UTI was about a month ago managed with abx. Symptoms started saturday but yesterday got worse to the point where she came to the ER. Denies blood in urine or stool. ER course: Blood pressure 198/75 on arrival, respiratory 18, pulse 89, temperature 98.1, saturating 98% on room air. UA showed 2+ blood, negative leukocyte esterase, positive nitrates, 2+ bacteria, 2+ mucus. WBC 16.1, hemoglobin 13.3, platelets 275 CT abdomen pelvis obtained which showed right-sided hydronephrosis with hydroureter. Obstructing stones at the right UVJ causing severe hydroureteronephrosis. Nonobstructing left renal calculi. Hepatomegaly. Other surgical changes in the left inguinal region as described above. Correlate clinically. Medications/Allergies Home Medications Medication Instructions Recorded Confirmed Last Taken Type B-complex with vitamin C 1 cap PO DAILY 07/03/21 09/06/22 Unknown History ascorbic acid (vitamin C) 500 mg See Rx Instructions PO DAILY #30 07/25/21 09/06/22 Unknown Rx capsule caps docusate sodium 50 mg capsule 50 mg PO DAILY #30 caps 07/25/21 09/06/22 Unknown Rx (Stool Softener) estrolibrium See Rx Instructions PO DAILY #30 07/25/21 09/06/22 Unknown Rx tabs mv-min-vit C 250 [id number]-rchvy See Rx Instructions PO .COMPLEX 07/25/21 09/06/22 Unknown Rx HCl-herb 124 12.5 mg chewable #30 tabs tablet (Immune Support) venlafaxine 150 mg See Rx Instructions .Route 10/19/21 09/06/22 Unknown Rx capsule,extended release 24 hr .COMPLEX #90 caps trazodone 50 mg tablet 50 mg PO BEDTIME #30 tabs 04/13/22 09/06/22 Unknown Rx ergocalciferol (vitamin D2) 50 mcg 100 mcg PO DAILY #60 caps 05/18/22 09/06/22 Unknown Rx (2,000 unit) capsule famotidine 20 mg tablet 20 mg PO BID #60 tabs 07/10/22 09/06/22 Unknown Rx potassium chloride 20 mEq See Rx Instructions .Route 07/11/22 09/06/22 Unknown Rx tablet,extended release(part/cryst) .COMPLEX #30 tabs gabapentin 300 mg capsule 300 mg PO TID #90 caps 08/06/22 09/06/22 Unknown Rx meloxicam 15 mg tablet 15 mg PO DAILY #30 tabs 08/06/22 09/06/22 Unknown Rx cyclobenzaprine 10 mg tablet 10 mg PO TID PRN muscle spasm #20 08/09/22 09/06/22 Unknown Rx tabs atorvastatin 20 mg tablet See Rx Instructions .Route 08/13/22 09/06/22 Unknown Rx .COMPLEX #90 tabs ondansetron HCl 4 mg tablet 4 mg PO TID PRN nausea and 08/26/22 09/06/22 Unknown Rx vomiting #20 tabs nystatin 100,000 unit/gram topical 1 applic topical TID PRN rash #30 09/07/22 Unknown Rx cream grams nitrofurantoin 100 mg PO Q12H 5 days #10 caps 09/13/22 09/15/22 09/14/22 12:45 Rx monohydrate/macrocrystals 100 mg capsule (Macrobid) phenazopyridine 200 mg tablet 200 mg PO TID PRN pain 2 days #6 09/13/22 09/15/22 09/14/22 12:45 Rx (Pyridium) tabs oxycodone 15 mg tablet 15 mg PO Q4H PRN pain 30 days #180 09/14/22 Unknown Rx tabs Allergies Allergy/AdvReac Type Severity Reaction Status Date / Time pantoprazole Allergy ADR-Heartbu Verified 09/15/22 05:16 rn magic mouth wash Allergy Unknown ALGY-Rash Uncoded 09/15/22 05:16 PFSH Acute PFSH: Medical History (Updated 09/15/22 @ 05:38 by Shannon Montilla MD) Breast cancer Chronic low back pain with bilateral sciatica Chronic steroid use Cystitis Degenerative arthritis Depression Walls's sarcoma GERD (gastroesophageal reflux disease) History of nephrolithiasis Hyperlipidemia Urolithiasis Surgical History History of bilateral mastectomy History of delivery x 2 History of excision of mass (09/2016) 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 History of surgery on right wrist History of tubal ligation Family History Father , IN HIS 30'S Accident Mother , AT 65 Cancer Other Rheumatoid arthritis Stroke Social History Smoking and tobacco status: current every day smoker cigarettes Packs smoked per day: 1 Alcohol intake: never Substance/Drug Use: never Marital status: Current occupational status: disabled Vitals/I&O/Wt Last Vital Signs Temp 98.1 F 09/14/22 23:49 Pulse 63 09/15/22 02:00 Resp 17 09/15/22 02:00 BP 164/90 09/15/22 02:00 Pulse Ox 95 09/15/22 02:00 O2 Del Method Room Air 09/15/22 01:52 O2 Flow Rate 2 09/15/22 01:52 09/14/22 09/14/22 09/15/22 14:59 22:59 06:59 Intake Total 1000 / 1000 Balance 1000 / 1000 Weight last 48 hrs Weight 75.75 kg Physical Exam Narrative: General: Alert oriented x3, patient seen laying in bed, no acute distress HEENT: Normocephalic, atraumatic, EOMI, breathing room air Cardio: Regular rate rhythm, normal S1-S2 Respiratory: Good bilateral air entry, no wheezes no rhonchi appreciated GI: Abdomen soft, nontender, nondistended, bowel sounds + No flank pain present, CVA tenderness negative. Behavior: Appropriate and cooperative Extremities: No edema Data 09/15/22 00:55 09/15/22 00:55 A&P Assessment and plan (1) Breast cancer: (2) Right renal stone: (3) Vitamin D deficiency: (4) Pyelonephritis: (5) Urolithiasis: (6) Right distal ureteral calculus: (7) Hydronephrosis: Plan #Right-sided hydronephrosis, with perinephric stranding, right hydroureter #Acute pyelonephritis #MARYURI, most likely due to postrenal cause #History of kidney stones in the past #History of breast cancer #History of depression, GERD, hematuria, #Hyperlipidemia ? Consult urology. N.p.o. for procedure now - Await further recs from urology. ? Start Zosyn every 8 hours IV ? Check urine culture, blood cultures ? Zofran for nausea ? Normal saline 100 cc/h ? Tylenol 650 every 6 hours as needed pain ? Morphine 2 mg every 4 hours as needed for pain -Patient does not have a history of high blood pressure. Blood pressure elevated in ER initially secondary to pain. Will monitor for now. -Creatinine 1.1 most likely secondary to postrenal cause due to obstructing kidney stone. Expected to improve after intervention. Full code SCDs, heparin subcu twice daily Attestations Medical Necessity Statement*: >2 midnight stay Coding Level of Care Code G0425 (30 min) TH Encounter Time (min): 45 Patient seen via Telehealth in the acute care setting (hospital or ED location) by agreement and consent of patient or patient customer development representative. Telehealth technology used during the visit includes video and audio. This patient encounter is appropriate and reasonable under the circumstances given the patient?s particular presentation at this time. The patient has been advised of the potential risks and limitations of this mode of treatment (including but not limited to the absence of in-person examination at this time) and has agreed to be treated by an off-site physician for this visit. If deemed clinically necessary from this telehealth visit, or if condition or consent for telehealth visit changes, an in-person visit will be arranged. For this encounter, total time for the origination of telehealth care on this date is as shown. Diagnoses Breast cancer C50.919 Right renal stone N20.0 Vitamin D deficiency E55.9 Pyelonephritis N12 Urolithiasis N20.9 Right distal ureteral calculus N20.1 Hydronephrosis N13.30
[2022-09-15] MEDS: piperacillin-tazobactam 3.375 GM in sodium chloride 0.9% (plus) 50 ML IV ×3 (04:44→18:10)
--- NOTE | 2022-09-15 05:01 | P.CONIM_ITS ---
Providers/Reason For Consult Consulting Physician/Specialty*: Urology/Foley Reason for Consult*: Right distal ureteral stones with high-grade obstruction complicated by UTI Requesting Physician: Dr. Montilla/Dr. Wilcox Attending Physician: Shannon Montilla MD Primary Care Provider: Celio De La Vega DO History of Present Illness History of Present Illness Naya Ferguson is a 56 year old female well-known to me for history of recurrent urolithiasis. Last visit was in May 2022 in follow-up of known RUP stone. No change on last KUB. Denied any UTI symptoms. Was placed on return to clinic as needed basis. [facility] of right renal colicky symptoms, dysuria, urgency and frequency. The pain was consistent with prior episodes of renal colic. Complicated by severe nausea and vomiting difficult to control in the emergency department. The dysuria was not typical for her prior episodes of stones. A couple of days ago she complained of UTI symptoms and was placed on MACROBID by her family care provider and has taken a single dose of that since prescribed. Denies fever or chills. No evidence of sepsis in the emergency department. She does have a history of RECURRENT UTIs. ED work-up: * UA: 5-10 RBCs, 0-4 white cells, NITRITE POSITIVE * CBC: White count 16.1 no anemia * BMP: Creatinine 1.1, glucose 148, normal electrolytes. * CT scan: High-grade obstruction of the right collecting system with severe perirenal and periureteral stranding down to the right UVJ where 2 stones are identified. Largest measures about 6 mm. [employer]unct[employer] stone [employer]. No obstruction on the left. Patient admitted due to concern of obstructive pyelonephritis. I reviewed the findings on the films with the patient in detail. Discussed the urgency/emergency status with the high-grade obstruction and evidence of UTI, elevated white count, tachycardia. She does not have any signs of sepsis at this point but is at risk for given the above. Has been started on IV antibiotics. Cultures have been sent. I have recommended urgent/emergent intervention with plans of at a minimum stenting but hopefully being able to treat the stones without excessive instrumentation because of the very distal location. Procedure explained in detail. She expressed good understanding. Asked appropriate questions. No other contraindications to proceeding. Informed consent was obtained after detailed discussion of benefits risk potential complications alternatives stent versus No stent, possibly face to procedure pending on ease of retrograde access. Review of Systems Const: Reports: chills and malaise; Denies: fever(s) Eyes: Denies: change in vision or yellow eyes ENMT: Denies: throat pain or hoarseness Card: Denies: chest pain or palpitations Resp: Denies: dyspnea or productive cough GI: Reports: abdominal pain, nausea and vomiting; Denies: hematemesis or change in bowel habits : Reports: flank pain, dysuria, urinary frequency and urinary urgency; Denies: hematuria Musc: Denies: joint redness or joint warmth Skin/Breast: Denies: sores Neuro: Denies: behavioral changes Psych: Denies: paranoia or memory loss Endo: Denies: flushing Zach/Lymph: Denies: easy bruising, easy bleeding or enlarged lymph nodes Medications/Allergies Home Medications Medication Instructions Recorded Confirmed Last Taken Type B-complex with vitamin C 1 cap PO DAILY 07/03/21 09/06/22 Unknown History ascorbic acid (vitamin C) 500 mg See Rx Instructions PO DAILY #30 07/25/21 09/06/22 Unknown Rx capsule caps docusate sodium 50 mg capsule 50 mg PO DAILY #30 caps 07/25/21 09/06/22 Unknown Rx (Stool Softener) estrolibrium See Rx Instructions PO DAILY #30 07/25/21 09/06/22 Unknown Rx tabs mv-min-vit C 250 [id number]-lqwco See Rx Instructions PO .COMPLEX 07/25/21 09/06/22 Unknown Rx HCl-herb 124 12.5 mg chewable #30 tabs tablet (Immune Support) venlafaxine 150 mg See Rx Instructions .Route 10/19/21 09/06/22 Unknown Rx capsule,extended release 24 hr .COMPLEX #90 caps trazodone 50 mg tablet 50 mg PO BEDTIME #30 tabs 04/13/22 09/06/22 Unknown Rx ergocalciferol (vitamin D2) 50 mcg 100 mcg PO DAILY #60 caps 05/18/22 09/06/22 Unknown Rx (2,000 unit) capsule famotidine 20 mg tablet 20 mg PO BID #60 tabs 07/10/22 09/06/22 Unknown Rx potassium chloride 20 mEq See Rx Instructions .Route 07/11/22 09/06/22 Unknown Rx tablet,extended release(part/cryst) .COMPLEX #30 tabs gabapentin 300 mg capsule 300 mg PO TID #90 caps 08/06/22 09/06/22 Unknown Rx meloxicam 15 mg tablet 15 mg PO DAILY #30 tabs 08/06/22 09/06/22 Unknown Rx cyclobenzaprine 10 mg tablet 10 mg PO TID PRN muscle spasm #20 08/09/22 09/06/22 Unknown Rx tabs atorvastatin 20 mg tablet See Rx Instructions .Route 08/13/22 09/06/22 Unknown Rx .COMPLEX #90 tabs ondansetron HCl 4 mg tablet 4 mg PO TID PRN nausea and 08/26/22 09/06/22 Unknown Rx vomiting #20 tabs nystatin 100,000 unit/gram topical 1 applic topical TID PRN rash #30 09/07/22 Unknown Rx cream grams nitrofurantoin 100 mg PO Q12H 5 days #10 caps 09/13/22 09/15/22 09/14/22 12:45 Rx monohydrate/macrocrystals 100 mg capsule (Macrobid) phenazopyridine 200 mg tablet 200 mg PO TID PRN pain 2 days #6 09/13/22 09/15/22 09/14/22 12:45 Rx (Pyridium) tabs oxycodone 15 mg tablet 15 mg PO Q4H PRN pain 30 days #180 09/14/22 Unknown Rx tabs Allergies Allergy/AdvReac Type Severity Reaction Status Date / Time pantoprazole Allergy ADR-Heartbu Verified 09/15/22 05:16 rn magic mouth wash Allergy Unknown ALGY-Rash Uncoded 09/15/22 05:16 PFSH Acute PFSH: Medical History Breast cancer Chronic low back pain with bilateral sciatica Chronic steroid use Cystitis Degenerative arthritis Depression Walls's sarcoma GERD (gastroesophageal reflux disease) History of nephrolithiasis Hyperlipidemia Urolithiasis Surgical History History of bilateral mastectomy History of delivery x 2 History of excision of mass (09/2016) 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 History of surgery on right wrist History of tubal ligation Family History Father , IN HIS 30'S Accident Mother , AT 65 Cancer Other Rheumatoid arthritis Stroke Social History Smoking and tobacco status: current every day smoker cigarettes Packs smoked per day: 1 Alcohol intake: never Substance/Drug Use: never Marital status: Current occupational status: disabled Vitals/I&O/Wt Last Vital Signs Temp 98.1 F 09/14/22 23:49 Pulse 63 09/15/22 02:00 Resp 17 09/15/22 02:00 BP 164/90 09/15/22 02:00 Pulse Ox 95 09/15/22 02:00 O2 Del Method Room Air 09/15/22 01:52 O2 Flow Rate 2 09/15/22 01:52 09/14/22 09/14/22 09/15/22 14:59 22:59 06:59 Intake Total 1000 / 1000 Balance 1000 / 1000 Weight last 48 hrs Weight 167 lb Physical Exam Const: COMMON NORMALS: alert and well nourished GENERAL APPEARANCE: well kempt and well developed ORIENTATION/CONSCIOUSNESS: not confused HENMT: COMMON NORMALS: normocephalic HEAD & SCALP: normal to inspection and normocephalic Eye: COMMON NORMALS: conjunctivae normal and no scleral icterus CONJUNCTIVA: Yes conjunctivae normal Neck/C-Spine: GENERAL: Yes normal visual inspection Lymph: OTHER: No lymphedema, no palpable lymphadenopathy Chest: OTHER: Normal chest movements Resp: COMMON NORMALS: normal respiratory effort EFFORT & INSPECTION: Yes able to speak in complete sentences, No labored and No Actively coughing OTHER: Clear to auscultation bilaterally, no wheezes Cardio: OTHER: Regular rhythm and rate, tachycardic GI: OTHER: Right upper quadrant tenderness, no palpable masses organomegaly appreciated. Normoactive bowel sounds : OTHER: Bladder nondistended nontender Normal external female genitalia No severe prolapse, normal urethra No vaginal discharge Back/Pelvis: OTHER: Right-sided CVA tenderness Extremity: COMMON NORMALS: no clubbing, cyanosis or edema Neuro: COMMON NORMALS: no focal motor deficits SENSORIUM/ORIENTATION: Yes alert Psych: COMMON NORMALS: mental status grossly normal APPEARANCE: Yes grossly normal and Yes well kempt ATTITUDE: Yes calm and Yes engaged Skin: COMMON NORMALS: no rashes or lesions noted and no jaundice GENERAL SKIN EXAM: no rashes or lesions noted Data 09/15/22 00:55 09/15/22 00:55 A&P Assessment and plan (1) Right distal ureteral calculus: To high-grade obstructing right distal ureteral stones complicated by UTI (2) Pyelonephritis: Complicating right distal ureteral stones (3) Urolithiasis: History of recurrent stones Plan The operating room this morning urgently/emergently for cystoscopy, RIGHT RETROGRADE URETEROPYELOGRAM Consult Attestations Medical Necessity Statement: Requires intervention urgently/emergently for obstructive pyelonephritis. See above Coding Level of Care Code Acute Code for g Fwd Diagnoses Right distal ureteral calculus N20.1 Pyelonephritis N12 Urolithiasis N20.9
[2022-09-15] MEDS: sodium chloride 0.9% 1,000 ML 75 ML IV (05:11)
[2022-09-15] MEDS: heparin 5,000 unit/mL INJ 1 mL 5000 UNIT SUBCUT (05:11)
--- NOTE | 2022-09-15 05:17 | PC.NURSE ---
Patient does not know her home medications and does not have a list with her. Patient's pharmacy will need to be called to verify home meds.
[2022-09-15 05:51] LABS: Lactic Sepsis W/Reflex 1.9 mmol/L (0.5-2.2)
[2022-09-15 06:02] LABS: Procalcitonin 0.03 ng/mL (0-0.5); Thyroid Stimulating Hormone 1.48 uIU/mL (0.27-4.20)
--- NOTE | 2022-09-15 06:58 | P.OP_ITS ---
Operative Report Date of procedure: September 15, 2022 Pre-op diagnosis: 1. Right distal ureteral stones with high-grade obstruction and pyelonephritis Post-op diagnosis: 1. Right distal ureteral stones with high-grade obstruction and pyelonephritis Procedure done: 1. Cystoscopy, RIGHT retrograde 2. RIGHT ureteroscopy, stone extraction x2, stent placement Implants: Right ureteral stent Specimens removed/disposition: Stones x2 Pathology: Stones x2 Surgeon: Alaina Estimated blood loss: Minimal Urine output: Not measured Complications: None Findings: Anesthesia: General Condition: Stable Disposition: PACU Intraoperative findings: * Stones in the expected position. With dilation of the distal ureter the stones were able to be removed easily with grasping forceps and did not quite require laser lithotripsy. * 6 Moroccan by 28 cm double-pigtail stent left indwelling. No string Brief History: Naya is a very pleasant 56-year-old white female well-known to me for history of recurrent UTIs and stones. She was last seen in May 2022 with unchanged right upper pole calculus. Was doing well from an infectious perspective. Was admitted through the emergency department today for progressive symptoms of UTI and renal colic and was found to have 2 stones causing high-grade obstruction in the right distal ureter. A significant mount of periureteral and perirenal inflammatory changes. She showed no signs of sepsis but concern for potential of infectious progression led to recommendation for urgent/emergent intervention in the operating room today. See H&P. Procedure: After emergent evaluation examination and obtaining of informed consent she was taken to the operating suite on 09/15/2022 where general anesthesia was administered without difficulty. Prepped and draped in usual sterile fashion in dorsolithotomy position pain careful attention to avoiding pressure points. Appropriate timeout was performed, preoperative antibiotics administered, beta- annie protocol confirmed. 21 Moroccan cystoscope was introduced into the urethral meatus and advanced into the bladder without difficulty. Bladder was systematically examined. No stones An 8 Moroccan cone-tip catheter was intubated into the right ureteral orifice for RIGHT RETROGRADE URETEROPYELOGRAM demonstratin filling defects in the right distal ureter consistent with stones identified on CT scan. Ureter proximal to the stones was dilated. No additional filling defects were noted A flexible tip guidewire was then advanced up the right ureter bypassing the stones. The distal ureter was dilated with a 15 Moroccan 4 cm balloon with no waist. The bladder was drained and the wire was secured to the drapes as a safety wire. A 7 Moroccan offset semirigid ureteroscope was then advanced up the right ureter next to the wire with the stones were encountered several inches proximal to their original position having migrated with passage of the guidewire.. Grasping forceps were utilized to remove the stones without difficulty. Scope was again passed to confirm no residual stones. Ureter demonstrated typical dilation trauma. It was decided to leave the wire in at the completion of the procedure. Cystoscope was then backloaded over the guidewire and a 7 Moroccan by 28 cm double-pigtail stent without string was advanced over the guidewire through the cystoscope into appropriate position as confirmed via fluoroscopy and cystoscop y. Bladder was drained. She tolerated procedure well without complications and was awakened in the operating room and returned to the recovery room in stable condition PLANS: 1. Admit back to the floor for continuation of IV antibiotics 2. We will plan on removing the stent late next week.
[2022-09-15] MEDS: sodium chloride 0.9% 1,000 ML 30 ML IV (07:57)
--- NOTE | 2022-09-15 08:14 | P.ANESASSM_ITS ---
Pre-Anesthetic Assessment Height/Weight: Height 1.73 m Weight 75.75 kg Temp Pulse Resp BP Pulse Ox O2 Del Method O2 Flow Rate 98.2 F 68 16 150/88 88 L Room Air 2 09/15/22 07:52 09/15/22 07:52 09/15/22 07:52 09/15/22 07:52 09/15/22 07:52 09/15/22 07:41 09/15/22 01:52 Operation Date: 09/15/22 08:20 Proposed Procedures p Cystoscopy Right Retrograde Ureteroscopy Laser Stent(Right) - Andrea Foley MD Familial anesthetic complications: none Was Beta Sylwia taken within 24 hours: N/A Was Clonidine taken within 24 hours: N/A Last intake: Intake Last Liquid Date 09/14/22 Last Liquid Time 20:30 Last Solid Date 09/14/22 Last Solid Time 15:30 Social Tobacco and No alcohol Exam alert, oriented x 3 and regular rate & rhythm Airway Submandibular: within normal limits Cervical ROM: within normal limits Mallampati: Class II Dentition: false Pulmonary Chronic Obstructive Pulmonary Disease [place], renal calc Metabolic Hyperlipidemia Chronic steroid Musc/skel Lower Back Pain and Osteoarthritis/DJD Walls sarcoma Neuropsych Anxiety and Depression Chronic pain Anesthetic Plan ASA status: 3 Anesthesia: General Medications/Allergies Home Medications Medication Instructions Recorded Confirmed Last Taken Type B-complex with vitamin C 1 cap PO DAILY 07/03/21 09/06/22 Unknown History ascorbic acid (vitamin C) 500 mg See Rx Instructions PO DAILY #30 07/25/21 09/06/22 Unknown Rx capsule caps docusate sodium 50 mg capsule 50 mg PO DAILY #30 caps 07/25/21 09/06/22 Unknown Rx (Stool Softener) estrolibrium See Rx Instructions PO DAILY #30 07/25/21 09/06/22 Unknown Rx tabs mv-min-vit C 250 [id number] See Rx Instructions PO .COMPLEX 07/25/21 09/06/22 Unknown Rx HCl-herb 124 12.5 mg chewable #30 tabs tablet (Immune Support) venlafaxine 150 mg See Rx Instructions .Route 10/19/21 09/06/22 Unknown Rx capsule,extended release 24 hr .COMPLEX #90 caps trazodone 50 mg tablet 50 mg PO BEDTIME #30 tabs 04/13/22 09/06/22 Unknown Rx ergocalciferol (vitamin D2) 50 mcg 100 mcg PO DAILY #60 caps 05/18/22 09/06/22 Unknown Rx (2,000 unit) capsule famotidine 20 mg tablet 20 mg PO BID #60 tabs 07/10/22 09/06/22 Unknown Rx potassium chloride 20 mEq See Rx Instructions .Route 07/11/22 09/06/22 Unknown Rx tablet,extended release(part/cryst) .COMPLEX #30 tabs gabapentin 300 mg capsule 300 mg PO TID #90 caps 08/06/22 09/06/22 Unknown Rx meloxicam 15 mg tablet 15 mg PO DAILY #30 tabs 08/06/22 09/06/22 Unknown Rx cyclobenzaprine 10 mg tablet 10 mg PO TID PRN muscle spasm #20 08/09/22 09/06/22 Unknown Rx tabs atorvastatin 20 mg tablet See Rx Instructions .Route 08/13/22 09/06/22 Unknown Rx .COMPLEX #90 tabs ondansetron HCl 4 mg tablet 4 mg PO TID PRN nausea and 08/26/22 09/06/22 Unknown Rx vomiting #20 tabs nystatin 100,000 unit/gram topical 1 applic topical TID PRN rash #30 09/07/22 Unknown Rx cream grams nitrofurantoin 100 mg PO Q12H 5 days #10 caps 09/13/22 09/15/22 09/14/22 12:45 Rx monohydrate/macrocrystals 100 mg capsule (Macrobid) phenazopyridine 200 mg tablet 200 mg PO TID PRN pain 2 days #6 09/13/22 09/15/22 09/14/22 12:45 Rx (Pyridium) tabs oxycodone 15 mg tablet 15 mg PO Q4H PRN pain 30 days #180 09/14/22 Unknown Rx tabs Allergies Allergy/AdvReac Type Severity Reaction Status Date / Time pantoprazole Allergy ADR-Heartbu Verified 09/15/22 05:16 rn magic mouth wash Allergy Unknown ALGY-Rash Uncoded 09/15/22 05:16 Current Medications Generic Name Dose Route Start Last Admin Trade Name Freq PRN Reason Stop Dose Admin Sodium Chloride 1,000 mls @ 125 mls/hr 09/15/22 04:30 09/15/22 05:50 Sodium Chloride 0.9% IV 125 mls/hr .Q8H VITOR Infusion Sodium Chloride 1,000 mls @ 30 mls/hr 09/15/22 08:00 09/15/22 07:57 Sodium Chloride 0.9% IV 09/16/22 07:59 30 mls/hr .Q24H VITOR Administration PFSH Anesthesia Medical History Breast cancer Chronic low back pain with bilateral sciatica Chronic steroid use Cystitis Degenerative arthritis Depression Walls's sarcoma GERD (gastroesophageal reflux disease) History of nephrolithiasis Hyperlipidemia Urolithiasis Surgical History History of bilateral mastectomy History of delivery x 2 History of excision of mass (09/2016) 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 History of surgery on right wrist History of tubal ligation Family History Father , IN HIS 30'S Accident Mother , AT 65 Cancer Other Rheumatoid arthritis Stroke Social History Smoking and tobacco status: current every day smoker cigarettes Packs smoked per day: 1 Alcohol intake: never Substance/Drug Use: never Marital status: Current occupational status: disabled Data Anesthesia 09/15/22 00:55 09/15/22 00:55 Short CBC 09/15/22 Range/Units 00:55 WBC 16.1 H (4.0-10.0) 10^3/uL Hgb 13.3 (11.5-15.3) g/dL Hct 41.6 (37.0-47.0) % MCV 95.2 (81-99) fl Plt Count 275 (130-400) 10^3/cmm Neut % (Auto) 86.7 % Neut # (Auto) 13.98 H (1.8-7.7) 10^3/uL BMP 09/15/22 00:55 Sodium 138 Potassium 4.7 Chloride 101 Carbon Dioxide 27 BUN 24 H Creatinine 1.1 H Glucose 148 H Calcium 9.6 Urine 09/14/22 Range/Units 23:50 Urine Color Dark yellow (Yellow) Urine Appearance Cloudy A (CLEAR) Urine pH 8 H (5-7) Ur Specific [place] 1.015 (1.005-1.030) Urine Protein Trace (Negative) Urine Glucose (UA) Norm (Normal) Urine Ketones Negative (Negative) Urine Nitrate Positive H (Negative) Urine Bilirubin 1+ H (Negative) Ur Leukocyte Esterase Negative (Negative) Urine RBC 5-10 H (0-2) /hpf Urine WBC 0-4 H (0-5) /hpf Microbiology 09/15/22 05:14 Blood Culture - Preliminary Blood SPECIMEN COLLECTED 09/15/22 05:05 Blood Culture - Preliminary Blood SPECIMEN COLLECTED Cardiac Studies: No Data to Display
[2022-09-15] MEDS: iohexol 300 mg/mL 50 mL Btl 10 ML IV (08:38)
--- NOTE | 2022-09-15 09:25 | PC.NURSE ---
Pt voided on bedpan x1, no odor, clear yellow urine noted. Pt reports burning with voiding.
[2022-09-15] MEDS: sodium chloride 0.9% 1,000 ML 125 ML IV (12:09)
--- NOTE | 2022-09-15 18:06 | P.PN_ITS ---
Subjective Subjective: She says she is doing all right after her cystoscopy, denies abdominal pain. Has not had hematuria. She also fell down walking down some stairs after he tripped at home prior to admission. Her ankles and right knee were hurting somewhat, discussed with her performing x-ray images but she declined. Did not feel there were been up. Later on I received a call stating that her and her would like to proceed with x-rays. Vitals/I&O/Wt Last Vital Signs Temp 98 F 09/15/22 15:33 Pulse 85 09/15/22 15:33 Resp 17 09/15/22 15:33 BP 120/71 09/15/22 15:33 Pulse Ox 96 09/15/22 15:33 O2 Del Method Room Air 09/15/22 15:33 O2 Flow Rate 2 09/15/22 01:52 09/15/22 09/15/22 09/15/22 06:59 14:59 22:59 Intake Total 1098.75 / 1098.75 1672.083 / 1672.083 50 / 1722.083 Output Total 750 / 750 Balance 1098.75 / 1098.75 922.083 / 922.083 50 / 972.083 Weight last 48 hrs Weight 75.75 kg Physical Exam Const: COMMON NORMALS: patient oriented x3 and alert GENERAL APPEARANCE: cooperative ORIENTATION/CONSCIOUSNESS: Yes awake HENMT: COMMON NORMALS: oropharynx normal Neck/C-Spine: COMMON NORMALS: no JVD Resp: COMMON NORMALS: normal respiratory effort and clear to auscultation bilaterally AUSCULTATION: clear to auscultation bilaterally Cardio: COMMON NORMALS: no JVD, regular rhythm, S1 normal heart sound present, S2 normal heart sound present and No murmurs present (Cardio) RHYTHM: regular rhythm HEART SOUNDS: S1 normal heart sound present and S2 normal heart sound present GI: COMMON NORMALS: Normal to inspection, nondistended, normoactive bowel soun ds present, Soft to palpation and non-tender PALPATION: Yes Soft to palpation Extremity: COMMON NORMALS: no joint enlargement and no pedal edema Neuro: COMMON NORMALS: patient oriented x3 and moves all extremities SENSORIUM/ORIENTATION: Yes alert Skin: COMMON NORMALS: no rashes or lesions noted GENERAL SKIN EXAM: no rashes or lesions noted Urinary Catheter Management: Velez Latex: Cath Placed During This Visit: yes, but has since been removed by the nurse Reason for Continuing Indwelling Catheter: Acute Urinary Retention or Obstruction Urinary Catheter Date of Insertion: 09/15/22 Urinary Catheter Time of Insertion: 05:46 Date Urinary Catheter Removed: 09/15/22 Time Urinary Catheter Discontinued: 08:15 Data 09/15/22 00:55 09/15/22 00:55 Micro: Microbiology 09/15/22 05:14 Blood Culture - Preliminary Blood SPECIMEN COLLECTED 09/15/22 05:05 Blood Culture - Preliminary Blood SPECIMEN COLLECTED A&P Assessment and plan (1) Breast cancer: (2) Right renal stone: (3) Vitamin D deficiency: (4) Pyelonephritis: (5) Urolithiasis: (6) Right distal ureteral calculus: (7) Hydronephrosis: Plan #Right-sided hydronephrosis, with perinephric stranding, right hydroureter #Acute pyelonephritis #MARYURI, most likely due to postrenal cause #History of kidney stones in the past #History of breast cancer #History of depression, GERD, hematuria, #Hyperlipidemia Urology documentation reviewed. Status post cystoscopy, right ureteroscopy, stone extraction, stent placement. Discussed with her. Doing well postprocedure. Discontinue additional fluid orders. Continue for now at 100 mL/h NS. Discussed with her may experience hematuria, possibly pain. Reassess urine so far no hematuria. Follow-up CBC. Discussed with her continue treatment for pyelonephritis, hopefully should be improving now that obstruction will be resolved. Notable cytosis seen thousand. She is afebrile. Continue Zosyn. Follow-up urine culture. ? Tylenol 650 every 6 hours as needed pain ? Morphine 2 mg every 4 hours as needed for pain She reports fell down some stairs at home and hurt her right knee, ankles were hurting somewhat as well. Discussed with her obtaining x-ray images but she declined. Later on I received a call that her and her would like to proceed. Requesting right knee x-ray, bilateral ankle x-rays, include feet. Initially elevated blood pressure: Has improved. 120/71. Monitor blood pressures. MARYURI: Follow-up chemistry. -Creatinine 1.1 most likely secondary to postrenal cause due to obstructing kidney stone. Expected to improve after intervention. Attestations Medical Necessity Statement*: Continue admission for assessment management of obstructive pyelonephritis, complicated UTI,, MARYURI status post on extraction, ureteral stent placement. Diagnoses Breast cancer C50.919 Right renal stone N20.0 Vitamin D deficiency E55.9 Pyelonephritis N12 Urolithiasis N20.9 Right distal ureteral calculus N20.1 Hydronephrosis N13.30
[2022-09-15] MEDS: atorvastatin 40 mg Tablet PO (18:10)
--- NOTE | 2022-09-15 18:17 | XRR_ITS ---
PROCEDURE INFORMATION: Exam: XR Right Knee Exam date and time: 09/15/2022 7:02 PM Age: 56 years old Clinical indication: Injury or trauma; Fall; Blunt trauma; Knee; Right TECHNIQUE: Imaging protocol: Radiologic exam of the right knee. Views: 3 views. COMPARISON: No relevant prior studies available. FINDINGS: Bones/joints: There is no knee joint effusion. The joint spaces are maintained. There is no intra-articular body. No acute fracture or dislocation. No chondrocalcinosis. Soft tissues: There is no foreign body. Mild subcutaneous edema. XR/XR knee RT 3V* [id number] IMPRESSION: No acute bony abnormality.
--- NOTE | 2022-09-15 18:17 | XRR_ITS ---
PROCEDURE INFORMATION: Exam: XR Left Ankle Exam date and time: 09/15/2022 6:58 PM Age: 56 years old Clinical indication: Injury or trauma; Fall; Other: PT states no pain; Additional info: Include foot, fall on stairs TECHNIQUE: Imaging protocol: Radiologic exam of the left ankle. Views: 3 or more views. COMPARISON: No relevant prior studies available. FINDINGS: Bones/joints: There is age indeterminate tiny avulsion fracture base of 5th metatarsal on the oblique view. No additional acute fracture. No dislocation. Soft tissues: There is soft tissue edema lateral to the calcaneus/hindfoot. XR/XR ankle LT min 3V* [id number] IMPRESSION: 1. There is age indeterminate tiny avulsion fracture base of 5th metatarsal on the oblique view. 2. No additional acute fracture.
--- NOTE | 2022-09-15 18:17 | XRR_ITS ---
PROCEDURE INFORMATION: Exam: XR Right Ankle Exam date and time: 09/15/2022 7:02 PM Age: 56 years old Clinical indication: Injury or trauma; Fall; Other: PT states no pain; Additional info: Include foot, fall on stairs TECHNIQUE: Imaging protocol: Radiologic exam of the right ankle. Views: 3 or more views. COMPARISON: No relevant prior studies available. FINDINGS: Bones/joints: Bony remodeling of the distal fibula and medial malleolus are compatible with old ankle injury. There are moderate degenerative changes in the tibiotalar joint. No acute fracture or dislocation. Soft tissues: There is soft tissue edema. XR/XR ankle RT min 3V* [id number] IMPRESSION: No acute fracture or dislocation.
[2022-09-15] MEDS: sodium chloride 0.9% 1,000 ML 100 ML IV (18:29)
[2022-09-15] MEDS: acetaminophen 325 mg Tablet 650 MG PO (20:27)
[2022-09-15] MEDS: trazodone 50 mg Tablet PO (20:27)
[2022-09-16] VITALS: BP 159/66; PULSE 80; RESP 18; TEMP 36.8; O2SAT 94
[2022-09-16] MEDS: piperacillin-tazobactam 3.375 GM in sodium chloride 0.9% (plus) 50 ML IV ×2 (03:14→10:54)
[2022-09-16 03:42] LABS: Basophils % 0.2 %; Eosinophils # 0.1 10^3/uL (0.0-0.8); Eosinophils % 1.1 %; Hematocrit 37.7 % (37.0-47.0); Hemoglobin 11.8 g/dL (11.5-15.3); Lymphocytes # 2.6 10^3/uL (0.8-4.8); Lymphocytes % 30.1 %; Mean Corpuscular HGB Conc 31.3 g/dL (30.0-36.0); Mean Corpuscular Volume 95.9 fl (81-99); Mean Platelet Volume 9.1 fL (7.4-10.4); Monocytes # 0.5 10^3/uL (0.2-0.9); Monocytes % 6.2 %; Neutrophils # 5.45 10^3/uL (1.8-7.7); Neutrophils % 62.1 %; Nucleated Red Blood Cells % 0 %; Platelet Count 239 10^3/cmm (130-400); Red Blood Count 3.93 10^6/uL (4.1-5.3); Red Cell Distribution Width 13.6 % (12.1-15.1); White Blood Count 8.8 10^3/uL (4.0-10.0)
[2022-09-16 04:00] VITALS: BP 161/80; PULSE 63; RESP 18; TEMP 36.4; O2SAT 94
[2022-09-16] MEDS: acetaminophen 325 mg Tablet 650 MG PO (04:01)
[2022-09-16] MEDS: sodium chloride 0.9% 1,000 ML 100 ML IV (04:02)
[2022-09-16 04:04] LABS: Alanine Aminotransferase 7 U/L (0-33); Albumin Level 3.6 g/dL (3.5-5.2); Alkaline Phosphatase 80 U/L (35-105); Anion Gap 12.4 (5-19); Aspartate Amino Transferase 11 U/L (0-32); Blood Urea Nitrogen 15 mg/dL (6-20); Calcium 9.1 mg/dL (8.5-10.5); Carbon Dioxide 25 mmol/L (22-29); Chloride 108 mmol/L (98-107); Globulin 2.6 g/dL (1.3-4.6); Glomerular Filtration Rate 103.8 mL/min (90-130); Glucose 114 mg/dL (65-115); Osmolality Calculated 296 mOsm/kg (285-295); Potassium 3.4 mmol/L (3.5-5.1); Sodium 142 mmol/L (136-145); Total Bilirubin 0.3 mg/dL (0.15-1.2); Total Protein 6.2 g/dL (6.6-8.7)
[2022-09-16 05:41] VITALS: PULSE 60
[2022-09-16 08:00] VITALS: BP 160/78; PULSE 61; RESP 16; TEMP 36.4; O2SAT 95
[2022-09-16] MEDS: venlafaxine ER (24HR) 150 mg Capsule PO (08:24)
[2022-09-16 08:28] VITALS: RESP 16; O2SAT 95
[2022-09-16] MEDS: morphine 4 mg/mL SDV 1 mL 2 MG IVP (08:28)
[2022-09-16] MEDS: potassium chloride ER 20 mEq Tablet PO (08:55)
[2022-09-16 11:15] VITALS: BP 155/84; PULSE 68; RESP 16; TEMP 36.9; O2SAT 97
--- NOTE | 2022-09-16 13:16 | PM.DCS ---
Discharge Providers Date of Admission: 09/15/22 03:47 Date of Discharge: September 16, 2022 Attending Provider at Admission: Shannon Montilla MD Attending Provider at Discharge: Perry Odell Primary Care Provider: Celio De La Vega DO Diagnoses at Discharge Discharge Diagnosis (1) Breast cancer: Status: Acute (2) Right renal stone: Status: Acute (3) Vitamin D deficiency: Status: Acute (4) Pyelonephritis: Status: Acute (5) Urolithiasis: Status: Acute (6) Right distal ureteral calculus: Status: Acute (7) Hydronephrosis: Status: Acute Reason for Visit Reason for Visit: uti, painful Hospital Course Hospital Course Pleasant 56-year-old lady with history of recurrent urolithiasis, among other past medical history presented with right-sided flank pain, dysuria, urinary frequency and urgency. She was started by her primary provider on Macrobid and Pyridium. Took 1 dose of the medication. In ER UA suggestive of UTI. CT abdomen pelvis with right-sided hydronephrosis with hydroureter obstructing stones at the UVJ causing severe hydronephrosis. Nonobstructing left renal calculi. Hepatomegaly. She was admitted with IV antibiotic coverage with Zosyn, started on IV hydration with normal saline, Zofran for nausea, pain control, blood pressure elevated in ER requiring a dose of blood pressure medication. On presentation also with noted MARYURI creatinine up to 1.1. Was assessed by urology, underwent cystoscopy, right ureteroscopy the same morning with stone extraction and stent placement. Since then has been doing well. No hematuria. Pain has not resolved. Continues on empiric antibiotic. Urine culture still pending, preliminary so far 20-30,000 mixed urogenital jam. Discussed with her. Please follow-up with final culture, for now she is discharging with cefdinir. Urology would like to see her back late this coming week with consideration for stent retrieval. Maintain low-sodium diet, avoid soda/soft drinks. MARYURI has resolved. Please follow-up renal function. She is asked to discontinue meloxicam. Please avoid NSAIDs. Mild hypokalemia replaced. Please follow-up potassium level. Prior to presentation additionally had tripped on stairs with a fall, felt she may have injured her right knee, ankles were sore as well as well as her feet. Imaged with x-ray, right knee without fracture. Unremarkable ankles bilaterally. Foot on the left with noted age-indeterminate tiny avulsion fracture base of fifth metatarsal on the oblique view. She states has been ambulating in her room without issue. It are somewhat sore, but right side is more sore. No fractures noted on the right foot. She is referred to podiatry for follow-up. Please revisit fall prevention. Physical Exam Narrative: Sitting up in a chair having just walked to the bathroom. Denies trouble walking. It are somewhat sore, right is more sore than left. Const: COMMON NORMALS: patient oriented x3 and alert GENERAL APPEARANCE: cooperative ORIENTATION/CONSCIOUSNESS: Yes awake HENMT: COMMON NORMALS: oropharynx normal Neck/C-Spine: COMMON NORMALS: no JVD Resp: COMMON NORMALS: normal respiratory effort and clear to auscultation bilaterally AUSCULTATION: clear to auscultation bilaterally Cardio: COMMON NORMALS: no JVD, regular rhythm, S1 normal heart sound present, S2 normal heart sound present and No murmurs present (Cardio) RHYTHM: regular rhythm HEART SOUNDS: S1 normal heart sound present and S2 normal heart sound present GI: COMMON NORMALS: Normal to inspection, nondistended, normoactive bowel sounds present, Soft to palpation and non-tender PALPATION: Yes Soft to palpation Extremity: COMMON NORMALS: no joint enlargement and no pedal edema OTHER: Feet w minimal if any swelling. Neuro: COMMON NORMALS: patient oriented x3 and moves all extremities SENSORIUM/ORIENTATION: Yes alert Skin: COMMON NORMALS: no rashes or lesions noted GENERAL SKIN EXAM: no rashes or lesions noted Urinary Catheter Management: Velez Latex: Cath Placed During This Visit: yes, but has since been removed by the nurse Reason for Continuing Indwelling Catheter: Acute Urinary Retention or Obstruction Urinary Catheter Date of Insertion: 09/15/22 Urinary Catheter Time of Insertion: 05:46 Date Urinary Catheter Removed: 09/15/22 Time Urinary Catheter Discontinued: 08:15 Discharge Data Studies Completed and Pending Completed Studies During Hospitalization Category Date Time Status CT abdomen renal stone [CT kidney stone [id number]] Stat Cat Scan 09/15/22 00:26 Completed XR ankle LT min 3V* [id number] Routine Exams 09/15/22 18:17 Completed XR ankle RT min 3V* [id number] Routine Exams 09/15/22 18:17 Completed XR knee RT 3V* [id number] Routine Exams 09/15/22 18:17 Completed Pending at discharge Category Date Time Status C-arm FL for Urology Routine Exams 09/15/22 07:27 Ordered Basic Metabolic Panel AM LABS Lab 09/17/22 04:00 Ordered Basic Metabolic Panel AM LABS Lab 09/18/22 04:00 Ordered Basic Metabolic Panel AM LABS Lab 09/19/22 04:00 Ordered Blood Culture Routine Lab 09/15/22 05:14 Results Complete Blood Count w/Auto AM LABS Lab 09/17/22 04:00 Ordered Complete Blood Count w/Auto AM LABS Lab 09/18/22 04:00 Ordered Complete Blood Count w/Auto AM LABS Lab 09/19/22 04:00 Ordered Stone Analysis Routine Lab 09/15/22 09:03 Uncollected Urine Culture Stat Lab 09/14/22 23:50 Results Pathology: Surgical [PTH] Routine Pth 09/15/22 09:03 Ordered Radiology Impressions Abdomen/Pelvis CT 09/15/22 00:26 IMPRESSION: Obstructing stones at the right UVJ causing severe hydroureteronephrosis. Nonobstructing left renal calculi. Hepatomegaly. Other surgical changes in the left inguinal region as described above. Correlate clinically. Ankle X-Ray 09/15/22 18:17 IMPRESSION: No acute fracture or dislocation. Knee X-Ray 09/15/22 18:17 IMPRESSION: No acute bony abnormality. Laboratory Results WBC 8.8 10^3/uL (4.0-10.0) 09/16/22 03:30 RBC 3.93 10^6/uL (4.1-5.3) L 09/16/22 03:30 Hgb 11.8 g/dL (11.5-15.3) 09/16/22 03:30 Hct 37.7 % (37.0-47.0) 09/16/22 03:30 MCV 95.9 fl (81-99) 09/16/22 03:30 MCH 30.0 pg (28.0-34.0) 09/16/22 03:30 MCHC 31.3 g/dL (30.0-36.0) 09/16/22 03:30 RDW 13.6 % (12.1-15.1) 09/16/22 03:30 Plt Count 239 10^3/cmm (130-400) 09/16/22 03:30 MPV 9.1 fL (7.4-10.4) 09/16/22 03:30 Neut % (Auto) 62.1 % 09/16/22 03:30 Lymph % (Auto) 30.1 % 09/16/22 03:30 [place] % (Auto) 6.2 % 09/16/22 03:30 Eos % (Auto) 1.1 % 09/16/22 03:30 Baso % (Auto) 0.2 % 09/16/22 03:30 Neut # (Auto) 5.45 10^3/uL (1.8-7.7) 09/16/22 03:30 Lymph # (Auto) 2.6 10^3/uL (0.8-4.8) 09/16/22 03:30 [place] # (Auto) 0.5 10^3/uL (0.2-0.9) 09/16/22 03:30 Eos # (Auto) 0.1 10^3/uL (0.0-0.8) 09/16/22 03:30 Baso # (Auto) 0.0 10^3/uL (0.0-0.1) 09/16/22 03:30 Nucleated RBC % (auto) 0 % 09/16/22 03:30 Nucleated RBCs # 0.0 /100WBC 09/16/22 03:30 Sodium 142 mmol/L (136-145) 09/16/22 03:30 Potassium 3.4 mmol/L (3.5-5.1) L 09/16/22 03:30 Chloride 108 mmol/L (98-107) H 09/16/22 03:30 Carbon Dioxide 25 mmol/L (22-29) 09/16/22 03:30 Anion Gap 12.4 (5-19) 09/16/22 03:30 BUN 15 mg/dL (6-20) 09/16/22 03:30 Creatinine 0.6 mg/dL (0.5-0.9) 09/16/22 03:30 GFR Calculation 103.8 mL/min (90-130) 09/16/22 03:30 Glucose 114 mg/dL (65-115) 09/16/22 03:30 Calculated Osmolality 296 mOsm/kg (285-295) H 09/16/22 03:30 Lactic Acid 1.9 mmol/L (0.5-2.2) 09/15/22 05:05 Calcium 9.1 mg/dL (8.5-10.5) 09/16/22 03:30 Magnesium 2.0 mg/dL (1.7-2.3) 09/16/22 03:30 Total Bilirubin 0.3 mg/dL (0.15-1.2) 09/16/22 03:30 AST 11 U/L (0-32) 09/16/22 03:30 ALT 7 U/L (0-33) 09/16/22 03:30 Alkaline Phosphatase 80 U/L (35-105) 09/16/22 03:30 Total Protein 6.2 g/dL (6.6-8.7) L 09/16/22 03:30 Albumin 3.6 g/dL (3.5-5.2) 09/16/22 03:30 Globulin 2.6 g/dL (1.3-4.6) 09/16/22 03:30 Procalcitonin 0.03 ng/mL (0-0.5) 09/15/22 05:05 TSH 1.48 uIU/mL (0.27-4.20) 09/15/22 05:05 Urine Color Dark yellow (Yellow) 09/14/22 23:50 Urine Appearance Cloudy (CLEAR) A 09/14/22 23:50 Urine pH 8 (5-7) H 09/14/22 23:50 Ur Specific Silver 1.015 (1.005-1.030) 09/14/22 23:50 Urine Protein Trace (Negative) 09/14/22 23:50 Urine Glucose (UA) Norm (Normal) 09/14/22 23:50 Urine Ketones Negative (Negative) 09/14/22 23:50 Urine Blood 2+ (Negative) H 09/14/22 23:50 Urine Nitrate Positive (Negative) H 09/14/22 23:50 Urine Bilirubin 1+ (Negative) H 09/14/22 23:50 Prot Sulfosalicylic Acd Negative (Negative) 09/14/22 23:50 Urine Urobilinogen 1 mg/dL (Negative) H 09/14/22 23:50 Ur Leukocyte Esterase Negative (Negative) 09/14/22 23:50 Urine RBC 5-10 /hpf (0-2) H 09/14/22 23:50 Urine WBC 0-4 /hpf (0-5) H 09/14/22 23:50 Ur Squamous Epith Cells None /hpf (0-5) 09/14/22 23:50 Amorphous Sediment Not Reportable 09/14/22 23:50 Urine Bacteria 2+ /hpf (NONE) H 09/14/22 23:50 Urine Mucus 2+ /hpf 09/14/22 23:50 Vitals Last Vital Signs Temp 98.5 F 09/16/22 11:15 Pulse 68 09/16/22 11:15 Resp 16 09/16/22 11:15 BP 155/84 09/16/22 11:15 Pulse Ox 97 09/16/22 11:15 O2 Del Method Room Air 09/16/22 11:15 O2 Flow Rate 2 09/16/22 08:00 Discharge Plan Discharge Patient Disposition: Home Condition: Good Prescriptions: New cefdinir 300 mg capsule 300 mg PO BID 7 Days Qty: 14 0RF Continued B-complex with vitamin C Capsule 1 cap PO DAILY trazodone 50 mg tablet 50 mg PO BEDTIME Qty: 30 3RF cyclobenzaprine 10 mg tablet 10 mg PO TID PRN (Reason: muscle spasm) Qty: 20 0RF gabapentin 300 mg capsule 300 mg PO TID Qty: 90 3RF Stool Softener 50 mg capsule 50 mg PO DAILY Qty: 30 0RF venlafaxine 150 mg capsule,extended release 24hr See Rx Instructions .ROUTE .COMPLEX Qty: 90 3RF Dose Instruction: TAKE ONE CAPSULE BY MOUTH ONCE DAILY Rx Instructions: TAKE ONE CAPSULE BY MOUTH ONCE DAILY ergocalciferol (vitamin D2) 50 mcg (2,000 unit) capsule 100 mcg PO DAILY Qty: 60 6RF famotidine 20 mg tablet 20 mg PO BID Qty: 60 5RF atorvastatin 20 mg tablet See Rx Instructions .ROUTE .COMPLEX Qty: 90 0RF Dose Instruction: TAKE ONE TABLET BY MOUTH ONCE DAILY Rx Instructions: TAKE ONE TABLET BY MOUTH ONCE DAILY nystatin 100,000 unit/gram cream 1 applic TOPICAL TID PRN (Reason: rash) Qty: 30 5RF phenazopyridine [Pyridium] 200 mg tablet 200 mg PO TID PRN (Reason: pain) 2 Days Qty: 6 0RF oxycodone 15 mg tablet 15 mg PO Q4H PRN (Reason: pain) 30 Days Qty: 180 0RF Rx Instructions: Max of 6 tablets per day ondansetron HCl 4 mg tablet 4 mg PO TID PRN (Reason: nausea and vomiting) Qty: 20 0RF potassium chloride 20 mEq tablet,ER particles/crystals 20 meq PO DAILY Immune Support 250-12.5 mg tablet,chewable 1 tab PO DAILY ascorbic acid (vitamin C) 500 mg capsule 500 mg PO DAILY estrolibrium 1 tab PO DAILY Discontinued meloxicam 15 mg tablet 15 mg PO DAILY Qty: 30 5RF nitrofurantoin monohyd/m-cryst [Macrobid] 100 mg capsule 100 mg PO Q12H 5 Days Qty: 10 0RF Rx Instructions: must administer with a meal/food Discharge Orders: Discharge Order (Routine); Ordered 09/16/22 Ordered By: Perry Odell Referrals: Isidro Rinaldi DPM [Physician] - (Please call [phone] tomorrow to set up an appointmnet to see Dr. Rinaldi. L 5th metatarsal avulsion fracture) Celio De La Vega DO [Primary Care Provider] - 4-7 days (Please call [phone] tomorrow to set up an appointment to see Dr. De La Vega. ) Andrea Foley MD [Physician] - 09/20/22 (Please call [phone] tomorrow to set up an appointment to see Dr. Foley. Stent) Discharge Diet: As Directed Discharge Activity: Increase activity as tolerated Patient Instructions: Cefdinir (By mouth), Acute Kidney Injury (GEN), Kidney Stones (GEN), Kidney Infection (GEN), Fall Prevention (GEN), Ureteral Stent Placement (GEN), Opioid Safety Activity Restrictions/Additional Instructions: Please follow-up with urology later this week with a breast reassessment after removal of kidney stone, and for removal of ureteral stent. Continue cefdinir for urinary tract infection unless antibiotic is changed by urology or your primary provider. Maintain low-sodium diet. Avoid any soda/soft drinks to help prevent recurrence of kidney stones. Please have your primary doctor reassess your kidney function after recovering from acute kidney injury. Please stop oxygen, avoid any other NSAIDs due to risk of acute kidney injury. Be cautious to prevent any falls. Continue to use the cane with walking. Discharge Attestations Time Spent in Discharge Care*: greater than 30 min Quality Metrics Clinical Quality Measures [ No reported AMI, CVA or VTE this stay] Coding Level of Care Code 88983 Total time (in minutes) for Discharge: 45 Diagnoses Breast cancer C50.919 Right renal stone N20.0 Vitamin D deficiency E55.9 Pyelonephritis N12 Urolithiasis N20.9 Right distal ureteral calculus N20.1 Hydronephrosis N13.30
[2022-09-21 22:24] LABS: Stone Source RIGHT URETERAL STONE
== END 2022-09-16 13:59 | disposition home or self-care (01) | DRG 661 ==
LOC: ER 09-15 03:46 → MEDSURG 09-15 04:05
PROVIDERS: Physician Assistant; Urology; Admitting Provider Internal Medicine; Emergency Provider Emergency Medicine; PCP Family Medicine; Visit Provider Internal Medicine
PROC: 0TJB8ZZ Inspection of Bladder, Via Natural or Artificial Opening Endoscopic (ICD-10-PCS; CPT 52000; principal; 2022-09-15 08:00)
PROC: 0TC68ZZ Extirpation of Matter from Right Ureter, Via Natural or Artificial Opening Endoscopic (ICD-10-PCS; CPT 74420; 2022-09-15 08:00)
PROC: 0TJ98ZZ Inspection of Ureter, Via Natural or Artificial Opening Endoscopic (ICD-10-PCS; CPT 52351; 2022-09-15 08:00)
PROC: 0TC68ZZ Extirpation of Matter from Right Ureter, Via Natural or Artificial Opening Endoscopic (ICD-10-PCS; CPT 50605; 2022-09-15 08:00)
PROC: 0TC68ZZ Extirpation of Matter from Right Ureter, Via Natural or Artificial Opening Endoscopic (ICD-10-PCS; 2022-09-15 08:00)
DX: N13.6 Pyonephrosis (principal); M19.90 Unspecified osteoarthritis, unspecified site; Z87.440 Personal history of urinary (tract) infections; Z87.442 Personal history of urinary calculi; Z85.3 Personal history of malignant neoplasm of breast; Z85.830 Personal history of malignant neoplasm of bone; Z90.13 Acquired absence of bilateral breasts and nipples; F32.A Depression, unspecified; K21.9 Gastro-esophageal reflux disease without esophagitis; E78.5 Hyperlipidemia, unspecified; F17.210 Nicotine dependence, cigarettes, uncomplicated; Z79.891 Long term (current) use of opiate analgesic; Z79.52 Long term (current) use of systemic steroids; E55.9 Vitamin D deficiency, unspecified; N17.9 Acute kidney failure, unspecified; E87.6 Hypokalemia; M25.561 Pain in right knee; M25.571 Pain in right ankle and joints of right foot
CPT/HCPCS: 36415; 51702; 73562; 73610; 74176; 80048; 80053; 81001; 81003; 82365; 83605; 83735; 84145; 84443; 85025; 87040; 87086; 88300; 94664; 96365; 96372; 96375; 96376; 99285; J0360; J1644; J2270; J2370; J2405; J2543; J2704; J3010; J3490; J7030; Q9967

== ENCOUNTER → 2022-09-18 14:08 | Outpatient (BNVA) | payer MEDICARE, MEDICAID, SELFPAY | PROVIDERS: PCP Family Medicine; Visit Provider Family Medicine | DX: R31.9 Hematuria, unspecified (principal) | CPT/HCPCS: 81000 ==

== ENCOUNTER 2022-09-20 06:54 | Outpatient (CLI) | payer MEDICARE, MEDICAID, SELFPAY ==
--- NOTE | 2022-09-20 07:15 | MR_ITS ---
WS: [id number] MRI THORACIC SPINE WITHOUT CONTRAST TECHNIQUE: Sagittal T1, T2 and STIR imaging. Axial T2 imaging. Noncontrast imaging obtained. CLINICAL INFORMATION: back pain/fx COMPARISON: Radiograph August 21, 2022 FINDINGS: Mild thoracic curve. Mild thoracic kyphosis. Acute compression of the T11 vertebral body. Loss of manda roximately 35% vertebral body height. Mild retropulsion of the posterior superior cortex. Mild centra l canal stenosis. No other acute appearing compression fractures. Cord signal is normal. Mild bilater al T10-T11 foraminal narrowing. Mild facet arthropathy in the lower thoracic spine. Normal caliber th oracic aorta. Partially visualized adrenal glands are normal. A few incidental hemangiomas in the thoracic spine. Tiny esophageal hiatal hernia. Disc osteophyte protrusion C5-C6 with mild central canal stenosis and slight contact of the cervical cord. MR/MR thoracic spin wo con* [id number] IMPRESSION: 1. Acute compression fracture T11 vertebral body with loss of approximately 35 % vertebral body height. 2. Mild retropulsion of the posterior superior cortex. Mild central canal sten osis. 3. No other acute appearing compression fractures. 4. Disc osteophyte protrusion C5-C6 with mild central canal stenosis and sligh t contact of the cervical cord. This can be further evaluated MRI.
--- NOTE | 2022-09-20 08:00 | MR_ITS ---
WS: [id number] MRI LUMBAR SPINE NONCONTRAST TECHNIQUE: Sagittal T1, T2 and STIR imaging. Axial T1 and T2 imaging. CLINICAL INFORMATION: low back jyotsna COMPARISON: None. FINDINGS: Compression fracture T11 vertebral body with loss of approximately 35% vertebral body height. Mild re tropulsion with mild central canal stenosis. Fracture cleft visualized in the superior endplate. Smal l amount of surrounding edema. L1-L2: Normal. L2-L3: Mild disc bulging with slight effacement of ventral thecal sac. Small RIGHT foraminal protrusi on with mild RIGHT foraminal narrowing. Tiny annular fissure. Contact of the exiting RIGHT L2 nerve r oot. LEFT foramen is patent. L3-L4: Mild disc bulging with a shallow RIGHT pericentral protrusion. Slight narrowing of the RIGHT s ubarticular recess. Far LEFT foraminal protrusion contacts the exiting LEFT L3 nerve root laterally. RIGHT foramen is patent. Mild facet arthropathy. L4-L5: Mild annular bulging. Slight effacement of the ventral thecal sac. Spinal canal and foramen ar e patent. Mild facet arthropathy. L5-S1: Mild disc osteophytic ridging. Contact of the exiting LEFT L5 nerve root. Mild LEFT greater th an RIGHT foraminal narrowing. Mild facet arthropathy. Visualized pelvic bony structures: Normal. Paravertebral soft tissues: Normal. MR/MR lumbar spine wo con* [id number] IMPRESSION: 1. Acute compression T11 vertebral body as described on the thoracic spine MRI . Mild retropulsion with mild central canal stenosis. 2. Small RIGHT foraminal protrusion L2-L3 slightly contacts the exiting RIGHT L2 nerve root with mild RIGHT foraminal narrowing. 3. LEFT lateral protrusion L3-L4 contacts the LEFT L3 nerve root laterally. Re commend correlation LEFT L3 nerve root symptoms. 4. Disc bulging L3-L4 with slight impingement on the RIGHT subarticular recess and traversing RIGHT L4 nerve root. 5. LEFT eccentric disc osteophyte complex L5-S1 with contact of the far exitin g LEFT L5 nerve root laterally.
== END 2022-09-20 06:55 | disposition home or self-care (01) ==
LOC: RAD 06:55
PROVIDERS: PCP Family Medicine; Visit Provider Orthopaedic Surgery
DX: S22.000A Wedge compression fracture of unspecified thoracic vertebra, initial encounter for closed fracture (principal); T14.8XXA Other injury of unspecified body region, initial encounter; M48.061 Spinal stenosis, lumbar region without neurogenic claudication; M51.26 Other intervertebral disc displacement, lumbar region; X58.XXXA Exposure to other specified factors, initial encounter
CPT/HCPCS: 72146; 72148; 81003; 99213

== ENCOUNTER → 2022-09-27 07:23 | Outpatient (BNVA) | payer MEDICARE, MEDICAID, SELFPAY | PROVIDERS: PCP Family Medicine; Visit Provider Orthopaedic Surgery | DX: S22.080A Wedge compression fracture of T11-T12 vertebra, initial encounter for closed fracture (principal); X58.XXXA Exposure to other specified factors, initial encounter | CPT/HCPCS: 36415; 80053; 85025; 99214 ==

== ENCOUNTER 2022-10-01 09:33 | Oncology outpatient (recurring) (ONCR) | payer MEDICARE, MEDICAID, SELFPAY ==
[2022-10-01 10:02] VITALS: BP 181/94; PULSE 71; RESP 18; TEMP 36.6; O2SAT 94
== END 2022-10-22 23:59 | disposition home or self-care (01) ==
PROVIDERS: PCP Family Medicine; Visit Provider Internal Medicine Medical Oncology
DX: Z45.2 Encounter for adjustment and management of vascular access device (principal); Z95.828 Presence of other vascular implants and grafts
CPT/HCPCS: 96523; J1642

== ENCOUNTER → 2022-10-02 10:07 | Outpatient (BNVA) | payer MEDICARE, MEDICAID, SELFPAY | PROVIDERS: PCP Family Medicine; Visit Provider Nurse Practitioner Family | DX: N23 Unspecified renal colic (principal) | CPT/HCPCS: 81000 ==

== ENCOUNTER → 2022-10-03 10:40 | Outpatient (BNVA) | payer MEDICARE, MEDICAID, SELFPAY | PROVIDERS: PCP Family Medicine; Referring Provider Orthopaedic Surgery; Visit Provider Clinical Nurse Specialist Adult Health | DX: R79.89 Other specified abnormal findings of blood chemistry (principal); N13.30 Unspecified hydronephrosis | CPT/HCPCS: 80053; 80074; 83690 ==

== ENCOUNTER 2022-10-08 07:31 | Outpatient (CLI) | payer MEDICARE, MEDICAID, SELFPAY ==
--- NOTE | 2022-10-08 07:45 | US_ITS ---
WS: [id number] ULTRASOUND ABDOMEN CLINICAL INFORMATION: newly elevated LFTs COMPARISON: None. FINDINGS: Liver Size: Upper limits of normal Craniocaudal length: 15.9 cm. Echogenicity: Coarse Surface nodularity: None. Mass (size and location): None. Bile ducts Intrahepatic ducts: Normal. Common bile duct diameter: 0.7 cm. Gallbladder Cholelithiasis Gallstones: Present Gallbladder sludge: None. Gallbladder wall thickening: None. Pericholecystic fluid: None. Sonographic Gillette sign: Absent. Pancreas Normal as visualized. Spleen Splenomegaly: None. Craniocaudal length: 10.3 cm. Right kidney: Normal. Hydronephrosis: None. Size: 10.8 cm x 5.8 cm x 5.4 cm Left kidney: Normal. Hydronephrosis: None. Size: 9.5 cm x 6.1 cm x 5.1 cm. Abdominal aorta and IVC Visualized portions are normal. Ascites: None. US/US abdomen complete* [id number] IMPRESSION: 1. Liver size upper limits of normal. Coarse echogenicity can be seen with fat ty infiltration or hepatocellular disease. Recommend correlation with liver fun ction tests. 2. Cholelithiasis. No gallbladder wall thickening or pericholecystic fluid. 3. Prominent common bile duct measuring 6.6 mm. 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 Recommend correlation with biliary function studies. 4. No hydronephrosis in either kidney.
== END 2022-10-08 07:32 | disposition home or self-care (01) ==
PROVIDERS: PCP Family Medicine; Visit Provider Clinical Nurse Specialist Adult Health
DX: R79.89 Other specified abnormal findings of blood chemistry (principal); K80.20 Calculus of gallbladder without cholecystitis without obstruction
CPT/HCPCS: 76700; 80053

== ENCOUNTER 2022-10-16 14:39 | Outpatient (CLI) | payer MEDICARE, MEDICAID, SELFPAY ==
--- NOTE | 2022-10-16 15:15 | MR_ITS ---
WS: [id number] MRCP (MAGNETIC RESONANCE CHOLANGIOPANCREATOGRAPHY) HISTORY: R74.01 - Elevation of levels of liver transaminase levels COMPARISON: Abdomen ultrasound 10/08/2022 TECHNIQUE: Multiple sequences are performed to evaluate the intra and extrahepatic ducts. Normally distended gallbladder with several filling defects from stones. Common bile duct diameter is normal. Common bile duct measures 4 mm. No filling defects are identified. No intrahepatic duct dila tation. No pancreatic duct dilatation. No ascites or adenopathy. 5 mm cortical cyst LEFT kidney. Visualized pancreas is negative. Normal spl een. No adrenal mass. MR/MR MRCP [id number] IMPRESSION: 1. Normal common bile duct. No duct dilatation or obstruction. 2. Cholelithiasis without evidence for acute cholecystitis.
== END 2022-10-16 14:40 | disposition home or self-care (01) ==
PROVIDERS: PCP Family Medicine; Visit Provider Family Medicine
DX: K80.20 Calculus of gallbladder without cholecystitis without obstruction (principal); C50.919 Malignant neoplasm of unspecified site of unspecified female breast; R74.01 Elevation of levels of liver transaminase levels
CPT/HCPCS: 74181

== ENCOUNTER → 2022-10-30 12:50 | Outpatient (BNVA) | payer MEDICARE, MEDICAID, SELFPAY | PROVIDERS: PCP Family Medicine; Visit Provider Orthopaedic Surgery | DX: M80.08XA Age-related osteoporosis with current pathological fracture, vertebra(e), initial encounter for fracture (principal) | CPT/HCPCS: 99214 ==

== ENCOUNTER 2022-11-07 12:10 | Oncology outpatient (recurring) (ONCR) | payer MEDICARE, MEDICAID, SELFPAY ==
[2022-11-07 12:22] VITALS: BP 158/92; PULSE 87; RESP 18; TEMP 36.9; O2SAT 96
[2022-11-07 12:24] VITALS: BMI 25.2
[2022-11-07 12:49] LABS: Basophils % 0.3 %; Eosinophils # 0.2 10^3/uL (0.0-0.8); Eosinophils % 2.4 %; Hematocrit 40.2 % (37.0-47.0); Lymphocytes # 2.9 10^3/uL (0.8-4.8); Lymphocytes % 37.5 %; Mean Corpuscular HGB Conc 32.3 g/dL (30.0-36.0); Mean Corpuscular Hemoglobin 30.8 pg (28.0-34.0); Mean Corpuscular Volume 95.3 fl (81-99); Mean Platelet Volume 9.7 fL (7.4-10.4); Monocytes # 0.5 10^3/uL (0.2-0.9); Monocytes % 6.1 %; Neutrophils # 4.19 10^3/uL (1.8-7.7); Neutrophils % 53.6 %; Nucleated Red Blood Cells % 0 %; Platelet Count 190 10^3/cmm (130-400); Red Blood Count 4.22 10^6/uL (4.1-5.3); Red Cell Distribution Width 13.5 % (12.1-15.1); White Blood Count 7.8 10^3/uL (4.0-10.0)
[2022-11-07 13:20] LABS: Alanine Aminotransferase 7 U/L (0-33); Alkaline Phosphatase 103 U/L (35-105); Aspartate Amino Transferase 13 U/L (0-32); Blood Urea Nitrogen 15 mg/dL (6-20); Calcium 9.1 mg/dL (8.5-10.5); Carbon Dioxide 29 mmol/L (22-29); Chloride 105 mmol/L (98-107); Globulin 2.5 g/dL (1.3-4.6); Glomerular Filtration Rate 74.2 mL/min (90-130); Glucose 101 mg/dL (65-115); Osmolality Calculated 293 mOsm/kg (285-295); Sodium 141 mmol/L (136-145); Total Bilirubin 0.2 mg/dL (0.15-1.2); Total Protein 6.5 g/dL (6.6-8.7)
[2022-11-07 13:36] LABS: 25 Hydroxy Vitamin D 29 ng/mL (30-100)
== END 2022-11-22 23:59 | disposition home or self-care (01) ==
PROVIDERS: PCP Family Medicine; Visit Provider Internal Medicine Medical Oncology
DX: Z08 Encounter for follow-up examination after completed treatment for malignant neoplasm (principal); Z85.3 Personal history of malignant neoplasm of breast; Z85.831 Personal history of malignant neoplasm of soft tissue; M19.90 Unspecified osteoarthritis, unspecified site; G62.9 Polyneuropathy, unspecified; F17.210 Nicotine dependence, cigarettes, uncomplicated; Z79.891 Long term (current) use of opiate analgesic; Z79.899 Other long term (current) drug therapy; Z92.21 Personal history of antineoplastic chemotherapy; Z92.3 Personal history of irradiation; Z53.9 Procedure and treatment not carried out, unspecified reason
CPT/HCPCS: 36591; 80053; 82306; 85025; 99214; J1642

== ENCOUNTER → 2022-12-06 13:21 | Outpatient (BNVA) | payer MEDICARE, MEDICAID, SELFPAY | PROVIDERS: PCP Family Medicine; Visit Provider Orthopaedic Surgery | DX: S22.080A Wedge compression fracture of T11-T12 vertebra, initial encounter for closed fracture (principal); X58.XXXA Exposure to other specified factors, initial encounter | CPT/HCPCS: 99214 ==

== ENCOUNTER 2022-12-06 14:24 | Oncology outpatient (recurring) (ONCR) | payer MEDICARE, MEDICAID, SELFPAY ==
[2022-12-06 14:45] VITALS: BP 137/89; PULSE 57; RESP 16; TEMP 36.7; O2SAT 98
== END 2022-12-22 23:59 | disposition home or self-care (01) ==
LOC: ONCMED 14:24
PROVIDERS: PCP Family Medicine; Visit Provider Internal Medicine Medical Oncology
DX: Z45.2 Encounter for adjustment and management of vascular access device (principal); Z95.828 Presence of other vascular implants and grafts
CPT/HCPCS: 96523; 99214; J1642

== ENCOUNTER 2022-12-19 06:00 | Outpatient (RCR) | payer MEDICARE, MEDICAID, SELFPAY | END 2022-12-22 23:59 | disposition home or self-care (01) | LOC: GPT 06:00 | PROVIDERS: Visit Provider Orthopaedic Surgery | DX: M48.54XA Collapsed vertebra, not elsewhere classified, thoracic region, initial encounter for fracture (principal) | CPT/HCPCS: 97110; 97112; 97162 ==

== ENCOUNTER 2022-12-23 06:00 | Outpatient (RCR) | payer MEDICARE, MEDICAID, SELFPAY | END 2023-01-22 23:59 | disposition home or self-care (01) | LOC: GPT 06:00 | PROVIDERS: PCP Family Medicine; Visit Provider Orthopaedic Surgery | DX: T14.8XXD Other injury of unspecified body region, subsequent encounter (principal); X58.XXXD Exposure to other specified factors, subsequent encounter; M54.9 Dorsalgia, unspecified | CPT/HCPCS: 97110 ==

== ENCOUNTER 2023-01-10 13:36 | Oncology outpatient (recurring) (ONCR) | payer MEDICARE, MEDICAID, SELFPAY ==
[2023-01-10 14:30] VITALS: BP 149/85; PULSE 78; RESP 16; TEMP 36.2; O2SAT 94
== END 2023-01-22 23:59 | disposition home or self-care (01) ==
LOC: ONCMED 13:36
PROVIDERS: PCP Family Medicine; Visit Provider Internal Medicine Medical Oncology
DX: Z45.2 Encounter for adjustment and management of vascular access device (principal)
CPT/HCPCS: 96523; J1642

== ENCOUNTER 2023-02-07 13:57 | Oncology outpatient (recurring) (ONCR) | payer MEDICARE, MEDICAID, SELFPAY | END 2023-02-21 23:59 | disposition home or self-care (01) | LOC: ONCMED 13:57 | PROVIDERS: PCP Family Medicine; Visit Provider Internal Medicine Medical Oncology | DX: Z45.2 Encounter for adjustment and management of vascular access device (principal) | CPT/HCPCS: 96523; J1642 ==

== ENCOUNTER 2023-03-07 11:36 | Outpatient (CLI) | payer MEDICARE, MEDICAID, SELFPAY ==
[2023-03-07 12:45] LABS: Basophils % 0.4 %; Eosinophils # 0.1 10^3/uL (0.0-0.8); Eosinophils % 1.4 %; Hematocrit 40.9 % (36-47); Lymphocytes # 2.8 10^3/uL (0.8-4.8); Lymphocytes % 35.5 %; Mean Corpuscular Hemoglobin 31.8 pg (27-33); Mean Corpuscular Volume 96.2 fl (85-98); Mean Platelet Volume 9.8 fL (7.4-10.4); Monocytes # 0.5 10^3/uL (0.2-0.9); Monocytes % 5.6 %; Neutrophils # 4.54 10^3/uL (1.8-7.7); Neutrophils % 56.8 %; Nucleated Red Blood Cells % 0 %; Platelet Count 222 10^3/cmm (157-399); Red Blood Count 4.25 10^6/uL (3.85-5.65); Red Cell Distribution Width 13.2 % (12.1-15.1); White Blood Count 7.99 10^3/uL (3.29-11.43)
[2023-03-07 12:56] LABS: Bilirubin Urine Neg (Negative); Blood Urine Neg (Negative); Glucose Urine UA Norm (Normal); Ketones Urine Negative (Negative); Leukocyte Esterase Urine Negative (Negative); Nitrate Urine Negative (Negative); Protein Urine Neg (Negative); Specific Gravity, Urine 1.005 (1.005-1.030); Urine Appearance Clear (CLEAR); Urine Color Yellow (Yellow); Urobilinogen Urine Norm (Negative); pH Urine 7 (5-7)
[2023-03-07 12:57] LABS: Bacteria Urine TRACE /hpf; RBC Urine 0-4 /hpf (0-2); Squamous Epithelial Cell Urine 0-4 /hpf (0-5)
[2023-03-07 12:58] LABS: Add Urine Culture? No
[2023-03-07 13:23] LABS: Alanine Aminotransferase 13 U/L (0-33); Albumin Level 4.6 g/dL (3.5-5.2); Alkaline Phosphatase 90 U/L (35-105); Anion Gap 13.4 (5-19); Aspartate Amino Transferase 17 U/L (0-32); Blood Urea Nitrogen 20 mg/dL (6-20); Calcium 9.7 mg/dL (8.5-10.5); Carbon Dioxide 30 mmol/L (22-29); Chloride 103 mmol/L (98-107); Globulin 2.5 g/dL (1.3-4.6); Glomerular Filtration Rate 74.2 mL/min (90-130); Glucose 103 mg/dL (65-115); Osmolality Calculated 297 mOsm/kg (285-295); Potassium 4.4 mmol/L (3.5-5.1); Sodium 142 mmol/L (136-145); Total Bilirubin 0.3 mg/dL (0.15-1.2); Total Protein 7.1 g/dL (6.6-8.7)
== END 2023-03-07 11:37 | disposition home or self-care (01) ==
LOC: LAB 11:41
PROVIDERS: PCP Family Medicine; Visit Provider Family Medicine
DX: Z01.818 Encounter for other preprocedural examination (principal); S22.089A Unspecified fracture of T11-T12 vertebra, initial encounter for closed fracture
CPT/HCPCS: 36415; 80053; 81001; 85025

== ENCOUNTER 2023-03-15 07:23 | Day surgery (SDC) | payer MEDICARE, MEDICAID, SELFPAY ==
[2023-03-15] VITALS (11 sets, daily range): BP systolic 131–181; BP diastolic 83–114; PULSE 77–123; RESP 12–20; TEMP 36.2–36.7; O2SAT 91–99; BMI 24.9
--- NOTE | 2023-03-15 07:33 | W.PM.OPSUD ---
Surgery/Procedure H&P Update DATE OF PROCEDURE: March 15, 2023 DATE H&P PERFORMED: 03/07/23 H&P UPDATE INFORMATION: I have reviewed H&P completed within last 30 days, I have examined patient prior to procedure and No changes to prior documentation PLANNED PROCEDURE: Operation Date: 03/15/23 09:05 Proposed Procedures p T 11 Kyphoplasty(Not Applicable) - Addison Wang DO
--- NOTE | 2023-03-15 08:05 | SC_ITS ---
WS: [id number] INTRAOPERATIVE TECHNIQUE: 4 Spot fluoroscopic images for intraoperative purposes. FLUOROSCOPY TIME: 33.9 seconds CLINICAL INFORMATION: T11 Kyphoplasty COMPARISON: None. FINDINGS: Intraoperative images obtained for T11 kyphoplasty purposes. IMPRESSION: Images obtained for intraoperative purposes.
[2023-03-15] MEDS: sodium chloride 0.9% 1,000 ML 30 ML IV (08:14)
[2023-03-15] MEDS: ceFAZolin 2,000 MG in sodium chloride 0.9% (plus) 50 ML 100 MG IV (08:34)
--- NOTE | 2023-03-15 08:36 | ANES.PREANE2 ---
Pre-Anesthetic Assessment Height/Weight: Height 1.73 m Weight 74.389 kg Temp Pulse Resp BP Pulse Ox O2 Del Method 97.2 F L 77 17 131/86 96 Room Air 03/15/23 08:05 03/15/23 08:05 03/15/23 08:05 03/15/23 08:05 03/15/23 08:05 03/15/23 08:05 Preop Diagnosis: Compression Fracture Thoracic 11 Operation Date: 03/15/23 09:05 Proposed Procedures p T 11 Kyphoplasty(Not Applicable) - Addison Wang DO Familial anesthetic complications: none Was Beta Sylwia taken within 24 hours: N/A Was Clonidine taken within 24 hours: N/A Last intake: Intake Last Liquid Date 03/14/23 Last Liquid Time 22:30 Last Solid Date 03/14/23 Last Solid Time 17:00 Social Tobacco and No alcohol Pulmonary Chronic Obstructive Pulmonary Disease GI Gastroesophageal Reflux Disease Metabolic Hyperlipidemia Musc/skel Lower Back Pain and Osteoarthritis/DJD Anesthetic Plan ASA status: 3 Anesthesia: General Medications/Allergies Home Medications Medication Instructions Recorded Confirmed Last Taken Type ascorbic acid (vitamin C) 500 mg 500 mg PO DAILY 09/15/22 03/14/23 03/14/23 History capsule mv-min-vit C 250 kw-afuexb-sctvm 1 tab PO DAILY 09/15/22 03/14/23 03/14/23 History HCl-herb 124 12.5 mg chewable tablet (Immune Support) naloxone 4 mg/actuation nasal spray 4 mg intranasal Q3M PRN opioid 10/30/22 03/14/23 Unknown Rx overdose #2 ea meloxicam 15 mg tablet 15 mg PO DAILY #30 tabs 02/11/23 03/14/23 03/11/23 Rx oxycodone 15 mg tablet 15 mg PO Q4H PRN pain 30 days #180 03/11/23 03/15/23 03/15/23 05:30 Rx tabs docusate sodium 50 mg capsule 100 mg PO DAILY 03/14/23 03/15/23 03/14/23 History (Stool Softener) atorvastatin 20 mg tablet 20 mg PO DAILY 03/15/23 03/15/23 03/14/23 History dexlansoprazole 60 mg 60 mg PO BID 03/15/23 03/15/23 03/14/23 History capsule,biphase delayed release famotidine 20 mg tablet 20 mg PO DAILY 03/15/23 03/15/23 03/14/23 History potassium chloride 20 mEq 20 meq PO DAILY 03/15/23 03/15/23 03/14/23 History tablet,extended release(part/cryst) venlafaxine 150 mg 150 mg PO DAILY 03/15/23 03/15/23 03/14/23 History capsule,extended release 24 hr Allergies Allergy/AdvReac Type Severity Reaction Status Date / Time pantoprazole Allergy ADR-Heartbu Verified 03/15/23 07:56 rn sulma mouth wash Allergy Unknown ALGY-Rash Uncoded 03/15/23 07:56 Current Medications Generic Name Dose Route Start Last Admin Trade Name Freq PRN Reason Stop Dose Admin Sodium Chloride 1,000 mls @ 30 mls/hr 03/15/23 08:15 03/15/23 08:14 Sodium Chloride 0.9% IV 03/16/23 08:14 30 mls/hr .Q24H VITOR Administration PFSH Anesthesia Medical History Cystitis cystica Urolithiasis History of nephrolithiasis Cystitis Chronic steroid use Depression Hyperlipidemia Degenerative arthritis GERD (gastroesophageal reflux disease) Breast cancer 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 Surgical History History of surgery on right wrist History of tubal ligation History of excision of mass (09/2016) 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
[2023-03-15] MEDS: lidocaine-epi 2% 20 mL INJ INJECTION (09:09)
--- NOTE | 2023-03-15 09:36 | PM.OP ---
Operative Report Date of procedure: March 15, 2023 Pre-op diagnosis: T11 wedge osteoporotic traumatic compression fracture Post-op diagnosis: same Procedure done: T11 kyphoplasty Surgeon: Addison Wang DO Estimated blood loss (mL): 5 Procedure: T11 kyphoplasty Patient brought the op suite after undergoing anesthesia was placed in the prone position. All areas impingement well-padded. Patient's prepped draped also fashion. Skin incision made over the lateral left pedicle using AP lateral fluoroscopy. The awl was inserted followed by the drill. Next the balloon was inserted and inflated. Once the balloon was deflated and removed then the void that was created was filled with cement AP lateral fluoroscopy ensured that the cement was in good position. Wounds were irrigated and closed with a nylon stitch.
[2023-03-15] MEDS: fentaNYL 50 mcg/mL INJ 2mL 100 MCG IVP (09:46)
[2023-03-15] MEDS: oxyCODONE 5 mg IR Tab/Cap 15 MG PO (10:34)
--- NOTE | 2023-03-15 14:02 | ANE.PACU2 ---
Inpatient post-anesthesia follow up: Airway intact: Yes Vital signs: Temperature 98.0 F Pulse Rate 90 Respiratory Rate 15 Blood Pressure 165/96 Pulse Oximetry 94 Oxygen Delivery Me thod Room Air Oxygen Flow Rate Fraction of Inspir ed Oxygen Hydration adequate: Yes Nausea and vomiting: No Pain level: 2 Mental status: Baseline
== END 2023-03-15 10:40 | disposition home or self-care (01) ==
PROVIDERS: PCP Family Medicine; Visit Provider Orthopaedic Surgery
PROC: (CPT 22513; principal; 2023-03-15 09:05)
DX: S22.080A Wedge compression fracture of T11-T12 vertebra, initial encounter for closed fracture (principal); X58.XXXA Exposure to other specified factors, initial encounter; E78.5 Hyperlipidemia, unspecified; K21.9 Gastro-esophageal reflux disease without esophagitis; Z85.3 Personal history of malignant neoplasm of breast; F17.210 Nicotine dependence, cigarettes, uncomplicated
CPT/HCPCS: 22513; 76000; J0690; J2250; J2704; J3010; J3490; J7030

== ENCOUNTER 2023-03-16 10:20 | Emergency (ER) | payer MEDICARE, MEDICAID, SELFPAY ==
[2023-03-16 10:27] VITALS: BP 168/100; PULSE 81; RESP 16; O2SAT 95; BMI 25.0
[2023-03-16 10:59] VITALS: BP 190/98
[2023-03-16] MEDS: ondansetron 2 mg/ML SDV 2 mL 4 MG IVP (10:59)
[2023-03-16] MEDS: cloNIDine 0.1 mg Tablet PO (10:59)
[2023-03-16 11:07] VITALS: BP 178/95; PULSE 82; RESP 16; O2SAT 97
--- NOTE | 2023-03-16 11:28 | ED_ITS ---
HPI - Back Pain/Injury General: Chief Complaint: Back Pain/Injury Stated Complaint: BACK PAIN Time Seen by Provider: 03/16/23 10:24 History of Present Illness: Patient presents to the ER with complaints of back pain head pain and nausea and vomiting. Patient had a T11 kyphoplasty performed yesterday at [facility]. Patient was given pain medicine has not been able to keep it down due to her vomiting. Patient was given 30 mg Toradol IV in the ambulance on the way to the ER and her pain decreased from a 9 to a 3. 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 Surgical History History of surgery on right wrist History of tubal ligation History of excision of mass (09/2016) 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 History of bilateral mastectomy History of delivery x 2 Family History Father , IN HIS 30'S Accident Mother , AT 65 Cancer Other Rheumatoid arthritis Stroke Social History Smoking and tobacco/nicotine status: current every day tobacco/nicotine user cigarettes Packs smoked per day: 1 Years cigarettes smoked: 40 Alcohol intake: never Substance/Drug Use: never Marital status: Current occupational status: disabled Physical Exam Const: COMMON NORMALS: no acute distress, average body habitus, patient or iented x3, no limitations, healthy appearing, alert and well nourished HENMT: COMMON NORMALS: normocephalic, atraumatic, hearing grossly normal bi laterally, external ears normal, Normal external nose present, moist oral mucous membranes and oropharynx normal HEAD & SCALP: normocephalic and atraumatic NOSE: Normal external nose present EXTERNAL EAR: Yes external ears normal Eye: COMMON NORMALS: Equal, round and reactive pupils present, EOMs intact bilaterally, conjunctivae normal and no scleral icterus CONJUNCTIVA: Yes conjunctivae normal PUPIL: Yes Equal, round and reactive pupils present Neck/C-Spine: COMMON NORMALS: full ROM, no lymphadenopathy, supple, no meningeal signs, no JVD and Thyroid normal THYROID: Thyroid normal Chest: COMMONS NORMALS: normal inspection of the chest and normal palpation of entire chest wall Resp: COMMON NORMALS: normal respiratory effort, No retractions, No use of accessory muscles and clear to auscultation bilaterally AUSCULTATION: clear to auscultation bilaterally Cardio: COMMON NORMALS: no JVD, regular rate, regular rhythm, S1 normal heart sound present, S2 normal heart sound present, No gallops present (Cardio), No clicks present (Cardio), No murmurs present (Cardio) and No rub (Cardio) RATE: regular rate RHYTHM: regular rhythm HEART SOUNDS: S1 normal heart sound present and S2 normal heart sound present GI: COMMON NORMALS: Normal to inspection, nondistended, normoactive bowel sounds present, Soft to palpation, non-tender, No hepatosplenomegaly present and no masses PALPATION: Yes Soft to palpation and Yes No hepatosplenomegaly present Neuro: COMMON NORMALS: patient oriented x3 SENSORIUM/ORIENTATION: Yes alert MENINGEAL SIGNS: Yes no meningeal signs Course Vital Signs: Vital signs: Vital Signs Pulse Rate 82 03/16/23 11:07 Respiratory Rate 16 03/16/23 11:07 Blood Pressure 178/95 03/16/23 11:07 Pulse Oximetry 97 03/16/23 11:07 Oxygen Delivery Me thod Room Air 03/16/23 11:07 MDM - Back Pain/Injury Medical Decision Making Patient was given Toradol in the ambulance, clonidine and Zofran in the ER for blood pressure nausea and vomiting. Patient states she is feeling much better and is ready to go home. Patient be given a prescription for Zofran to go home. Differential Diagnosis Unlikely lumbar radiculopathy, sciatica, strain of lumbar region, renal colic, pyelonephritis, thoracic back pain, AAA or discitis Medical Records I reviewed the patient's medical records. Labs I reviewed the patient's lab results. No radiology studies performed this visit Discharge Plan Discharge Patient Disposition: Home Clinical Impression: Nausea & vomiting Condition: Stable Prescriptions: No Action naloxone 4 mg/actuation spray,non-aerosol 4 mg intranasal Q3M PRN (Reason: opioid overdose) Qty: 2 0RF Rx Instructions: 1 dose into ONE nostril; alternate nostrils w each dose until help arrives meloxicam 15 mg tablet 15 mg PO DAILY Qty: 30 5RF oxycodone 15 mg tablet 15 mg PO Q4H PRN (Reason: pain) 30 Days Qty: 180 0RF Rx Instructions: Max of 6 tablets per day Immune Support 250-12.5 mg tablet,chewable 1 tab PO DAILY ascorbic acid (vitamin C) 500 mg capsule 500 mg PO DAILY Stool Softener 50 mg capsule 100 mg PO DAILY atorvastatin 20 mg tablet 20 mg PO DAILY Rx Instructions: TAKE ONE TABLET BY MOUTH ONCE DAILY venlafaxine 150 mg capsule,extended release 24hr 150 mg PO DAILY Rx Instructions: TAKE ONE CAPSULE BY MOUTH ONCE DAILY potassium chloride 20 mEq tablet,ER particles/crystals 20 meq PO DAILY Rx Instructions: TAKE ONE TABLET BY MOUTH ONCE DAILY famotidine 20 mg tablet 20 mg PO DAILY Rx Instructions: TAKE ONE TABLET BY MOUTH TWICE DAILY dexlansoprazole 60 mg capsule,biphase delayed releas 60 mg PO BID Rx Instructions: TAKE ONE CAPSULE BY MOUTH TWICE DAILY oxycodone 15 mg tablet 15 mg PO Q6H PRN (Reason: pain) 7 Days Qty: 28 0RF Discharge Orders: Discharge ED (Routine); Ordered 03/16/23 Ordered By: Bradley Maurer Referrals: Celio De La Vega DO [Primary Care Provider] - 1 week Patient Instructions: Acute Nausea and Vomiting (ED) Coding Level of Care Code ED Chemical Unit Operator for Darian Rendon
[2023-03-16 12:26] VITALS: BP 161/87
== END 2023-03-16 12:26 | disposition home or self-care (01) ==
PROVIDERS: Emergency Provider Emergency Medicine; PCP Family Medicine
DX: R11.2 Nausea with vomiting, unspecified (principal); F17.210 Nicotine dependence, cigarettes, uncomplicated; E78.5 Hyperlipidemia, unspecified; Z85.3 Personal history of malignant neoplasm of breast
CPT/HCPCS: 96374; 99284; J2405

== ENCOUNTER → 2023-03-22 09:53 | Outpatient (BNVA) | payer MEDICARE, MEDICAID, SELFPAY | PROVIDERS: PCP Family Medicine; Visit Provider Nurse Practitioner Family | DX: E78.5 Hyperlipidemia, unspecified (principal) | CPT/HCPCS: 80053; 80061 ==

== ENCOUNTER → 2023-03-28 10:40 | Outpatient (BNVA) | payer MEDICARE, MEDICAID, SELFPAY | PROVIDERS: PCP Family Medicine; Visit Provider Physician Assistant | DX: S22.080D Wedge compression fracture of T11-T12 vertebra, subsequent encounter for fracture with routine healing; X58.XXXD Exposure to other specified factors, subsequent encounter; E78.5 Hyperlipidemia, unspecified | CPT/HCPCS: 99024; 99213 ==

== ENCOUNTER 2023-04-04 14:16 | Oncology outpatient (recurring) (ONCR) | payer MEDICARE, MEDICAID, SELFPAY ==
[2023-04-04 14:32] VITALS: BP 166/97; PULSE 80; RESP 16; TEMP 36.6; O2SAT 93
== END 2023-04-24 23:59 | disposition home or self-care (01) ==
LOC: ONCMED 14:16
PROVIDERS: PCP Family Medicine; Visit Provider Internal Medicine Medical Oncology
DX: Z45.2 Encounter for adjustment and management of vascular access device (principal)
CPT/HCPCS: 96523; J1642

== ENCOUNTER 2023-05-02 13:53 | Outpatient (CLI) | payer MEDICARE, MEDICAID, SELFPAY ==
--- NOTE | 2023-05-02 14:30 | XR_ITS ---
WS: [id number] SCREENING DEXA SCAN [facility] CLINICAL INFORMATION: osteopenia COMPARISON: 2019 FINDINGS: The L1-L4 bone mineral density measures 0.8. This corresponds to a T score score of -3.2 and Z score of -2.6. Left femoral neck bone mineral density measures 0.659 g/cm2. This corresponds to a T score of -2.8 an d Z score of -2.3. IMPRESSION: Osteoporosis lumbar spine. Osteoporosis femoral necks. Patient's FRAX calculated 10 year probability for major osteoporotic fracture is 10.1% and osteoporot ic hip fracture is 2.7%. Bone mineral density lumbar spine decreased -11.8% bone mineral density femoral necks decreased -12.9%
== END 2023-05-02 13:54 | disposition home or self-care (01) ==
LOC: RAD 13:54
PROVIDERS: PCP Family Medicine; Visit Provider Internal Medicine Medical Oncology
DX: M85.80 Other specified disorders of bone density and structure, unspecified site (principal)
CPT/HCPCS: 77080

== ENCOUNTER 2023-05-15 10:24 | Oncology outpatient (recurring) (ONCR) | payer MEDICARE, MEDICAID, SELFPAY ==
[2023-05-15 10:57] LABS: Basophils % 0.4 %; Eosinophils # 0.1 10^3/uL (0.0-0.8); Eosinophils % 1.2 %; Hematocrit 38.9 % (36-47); Lymphocytes % 28.1 %; Mean Corpuscular HGB Conc 34.2 g/dL (30-55); Mean Corpuscular Hemoglobin 32.1 pg (27-33); Mean Platelet Volume 9.1 fL (7.4-10.4); Monocytes # 0.3 10^3/uL (0.2-0.9); Monocytes % 4.9 %; Nucleated Red Blood Cells % 0 %; Platelet Count 210 10^3/cmm (157-399); Red Blood Count 4.14 10^6/uL (3.85-5.65); Red Cell Distribution Width 12.7 % (12.1-15.1); White Blood Count 6.93 10^3/uL (3.29-11.43)
[2023-05-15 11:16] LABS: Alanine Aminotransferase 11 U/L (0-33); Albumin Level 4.2 g/dL (3.5-5.2); Alkaline Phosphatase 77 U/L (35-105); Anion Gap 9.6 (5-19); Aspartate Amino Transferase 16 U/L (0-32); Blood Urea Nitrogen 19 mg/dL (6-20); Carbon Dioxide 28 mmol/L (22-29); Chloride 105 mmol/L (98-107); Globulin 2.4 g/dL (1.3-4.6); Glomerular Filtration Rate 86.6 mL/min (90-130); Glucose 120 mg/dL (65-115); Osmolality Calculated 291 mOsm/kg (285-295); Potassium 3.6 mmol/L (3.5-5.1); Sodium 139 mmol/L (136-145); Total Bilirubin 0.4 mg/dL (0.15-1.2); Total Protein 6.6 g/dL (6.6-8.7)
[2023-05-15 11:32] LABS: 25 Hydroxy Vitamin D 19 ng/mL (30-100)
== END 2023-05-23 23:59 | disposition home or self-care (01) ==
PROVIDERS: Nurse Practitioner Family; PCP Family Medicine; Visit Provider Internal Medicine Medical Oncology
DX: Z85.831 Personal history of malignant neoplasm of soft tissue; Z85.3 Personal history of malignant neoplasm of breast; M81.0 Age-related osteoporosis without current pathological fracture; E55.9 Vitamin D deficiency, unspecified; G89.29 Other chronic pain; Z90.12 Acquired absence of left breast and nipple; Z92.3 Personal history of irradiation; F32.A Depression, unspecified; F17.210 Nicotine dependence, cigarettes, uncomplicated; Z79.891 Long term (current) use of opiate analgesic; M19.90 Unspecified osteoarthritis, unspecified site; G62.0 Drug-induced polyneuropathy; T45.1X5A Adverse effect of antineoplastic and immunosuppressive drugs, initial encounter
CPT/HCPCS: 36591; 80053; 82306; 85025; 99214

== ENCOUNTER → 2023-05-22 08:59 | Outpatient (BNVA) | payer MEDICARE, MEDICAID, SELFPAY | PROVIDERS: PCP Family Medicine; Referring Provider Physician Assistant; Visit Provider Internal Medicine | DX: M81.0 Age-related osteoporosis without current pathological fracture (principal); E78.5 Hyperlipidemia, unspecified; E55.9 Vitamin D deficiency, unspecified; S22.080D Wedge compression fracture of T11-T12 vertebra, subsequent encounter for fracture with routine healing; Z98.890 Other specified postprocedural states; X58.XXXD Exposure to other specified factors, subsequent encounter | CPT/HCPCS: 99204 ==

== ENCOUNTER 2023-06-12 13:24 | Oncology outpatient (recurring) (ONCR) | payer MEDICARE, MEDICAID, SELFPAY ==
[2023-06-12 13:35] VITALS: BP 160/97; PULSE 97; RESP 16; TEMP 36.3; O2SAT 97
== END 2023-06-23 23:59 | disposition home or self-care (01) ==
LOC: ONCMED 13:25
PROVIDERS: PCP Family Medicine; Visit Provider Internal Medicine Medical Oncology
DX: Z45.2 Encounter for adjustment and management of vascular access device (principal)
CPT/HCPCS: 96523; J1642

== ENCOUNTER 2023-06-25 08:57 | Outpatient (CLI) | payer MEDICARE, MEDICAID, SELFPAY ==
[2023-06-25 09:55] LABS: Calcium 9.5 mg/dL (8.5-10.5)
[2023-06-25 10:02] LABS: Parathyroid Hormone 43.6 pg/mL (15-65)
[2023-06-25 10:12] LABS: 25 Hydroxy Vitamin D 17 ng/mL (30-100); Alanine Aminotransferase 10 U/L (0-33); Albumin Level 4.2 g/dL (3.5-5.2); Alkaline Phosphatase 85 U/L (35-105); Anion Gap 12.4 (5-19); Aspartate Amino Transferase 13 U/L (0-32); Blood Urea Nitrogen 17 mg/dL (6-20); Calcium 9.5 mg/dL (8.5-10.5); Carbon Dioxide 28 mmol/L (22-29); Chloride 105 mmol/L (98-107); Globulin 2.2 g/dL (1.3-4.6); Glomerular Filtration Rate 86.6 mL/min (90-130); Glucose 146 mg/dL (65-115); Osmolality Calculated 298 mOsm/kg (285-295); Potassium 3.4 mmol/L (3.5-5.1); Sodium 142 mmol/L (136-145); Thyroid Stimulating Hormone 3.29 uIU/mL (0.27-4.20); Total Bilirubin 0.3 mg/dL (0.15-1.2); Total Protein 6.4 g/dL (6.6-8.7)
[2023-06-25 10:43] LABS: Free T4 Free Thyroxine 1.01 ng/dL (0.82-1.77)
== END 2023-06-25 08:58 | disposition home or self-care (01) ==
LOC: LAB 09:02
PROVIDERS: Absent Provider Nurse Practitioner Family; PCP Family Medicine; Visit Provider Internal Medicine
DX: E55.9 Vitamin D deficiency, unspecified (principal); E78.5 Hyperlipidemia, unspecified; M81.0 Age-related osteoporosis without current pathological fracture
CPT/HCPCS: 36415; 80053; 82306; 82310; 83970; 84439; 84443

== ENCOUNTER 2023-07-02 12:53 | Outpatient (CLI) | payer MEDICARE, MEDICAID, SELFPAY ==
--- NOTE | 2023-07-02 14:00 | CT_ITS ---
WS: [id number] CT CHEST, ABDOMEN AND PELVIS WITH CONTRAST HISTORY: History of Walls sarcoma LEFT groin. TECHNIQUE: Contiguous 5 mm axial imaging performed through the chest, abdomen and pelvis with IV cont rast, oral contrast has been provided. Coronal and sagittal reformats chest. Coronal and sagittal ref ormats through the abdomen and pelvis. All CT scans at [facility] use at least one of these d ose optimization techniques: automated exposure control; mA and/or kV adjustment per patient size (in cludes targeted exams where dose is matched to clinical indication); or iterative reconstruction. CONTRAST: Omnipaque 350; 100 mL IV. DLP: 766.60 mGy.cm COMPARISON: 07/09/2022, 09/15/[address]: Lungs are mildly hyperexpanded. No pulmonary nodule or mass. There are a few tiny micronodu les which are unchanged. No pericardial or pleural effusions. No mediastinal or hilar adenopathy. Nor mal size heart. Mild atherosclerosis aorta. RIGHT Mediport is in place. Abdomen CT: Liver, spleen and gallbladder are negative. No adrenal mass. Normal pancreas. No renal ob struction. No renal calcifications. Mild atherosclerosis aorta. No ascites or adenopathy. Stomach is well distended. No small bowel obstruction. Mild constipation. No mesenteric implants. No omental implant. Pelvic CT: No free fluid or adenopathy. Uterus remains midline and normal size. Postsurgical clips at the LEFT groin. T11 vertebral fracture with kyphoplasty. IMPRESSION: 1. No metastatic disease to the lungs or liver. No adrenal mass. 2. No lymphadenopathy in the chest, abdomen or pelvis. 3. No ascites.
[2023-07-02] MEDS: iohexol 350 mg/mL 500 mL Btl (per mL) PO (14:26)
[2023-07-02] MEDS: iohexol 350 mg/mL 500 mL Btl (per mL) IV (14:26)
== END 2023-07-02 12:54 | disposition home or self-care (01) ==
LOC: RAD 12:54
PROVIDERS: PCP Family Medicine; Visit Provider Nurse Practitioner Family
DX: C41.9 Malignant neoplasm of bone and articular cartilage, unspecified (principal)
CPT/HCPCS: 71260; 74177; Q9967

== ENCOUNTER 2023-07-10 14:00 | Oncology outpatient (recurring) (ONCR) | payer MEDICARE, MEDICAID, SELFPAY | END 2023-07-23 23:59 | disposition home or self-care (01) | LOC: ONCMED 14:01 | PROVIDERS: PCP Family Medicine; Visit Provider Internal Medicine Medical Oncology | DX: Z45.2 Encounter for adjustment and management of vascular access device (principal) | CPT/HCPCS: 96523 ==

== ENCOUNTER → 2023-07-23 08:44 | Outpatient (BNVA) | payer MEDICARE, MEDICAID, SELFPAY | PROVIDERS: PCP Family Medicine; Visit Provider Internal Medicine | DX: E55.9 Vitamin D deficiency, unspecified (principal); M81.0 Age-related osteoporosis without current pathological fracture; S22.080D Wedge compression fracture of T11-T12 vertebra, subsequent encounter for fracture with routine healing; Z98.890 Other specified postprocedural states; X58.XXXD Exposure to other specified factors, subsequent encounter | CPT/HCPCS: 99214 ==

== ENCOUNTER → 2023-09-12 09:47 | Outpatient (BNVA) | payer MEDICARE, MEDICAID, SELFPAY | PROVIDERS: PCP Family Medicine; Visit Provider Family Medicine | DX: I10 Essential (primary) hypertension (principal) | CPT/HCPCS: 80053 ==

== ENCOUNTER 2023-11-14 13:49 | Oncology outpatient (recurring) (ONCR) | payer MEDICARE, MEDICAID, SELFPAY ==
[2023-11-14 14:17] LABS: Basophils % 0.4 %; Eosinophils # 0.2 10^3/uL (0.0-0.8); Eosinophils % 2.3 %; Hematocrit 39.8 % (36-47); Lymphocytes % 43.3 %; Mean Corpuscular HGB Conc 31.9 g/dL (30-55); Mean Corpuscular Hemoglobin 30.5 pg (27-33); Mean Corpuscular Volume 95.4 fl (85-98); Monocytes # 0.4 10^3/uL (0.2-0.9); Monocytes % 6.5 %; Neutrophils # 3.21 10^3/uL (1.8-7.7); Neutrophils % 47.2 %; Nucleated Red Blood Cells % 0 %; Platelet Count 268 10^3/cmm (157-399); Red Blood Count 4.17 10^6/uL (3.85-5.65); Red Cell Distribution Width 13.9 % (12.1-15.1); White Blood Count 6.81 10^3/uL (3.29-11.43)
[2023-11-14 14:46] LABS: Alanine Aminotransferase 9 U/L (0-33); Albumin Level 4.1 g/dL (3.5-5.2); Alkaline Phosphatase 85 U/L (35-105); Anion Gap 11.3 (5-19); Aspartate Amino Transferase 14 U/L (0-32); Blood Urea Nitrogen 19 mg/dL (6-20); Calcium 9.5 mg/dL (8.5-10.5); Carbon Dioxide 30 mmol/L (22-29); Chloride 104 mmol/L (98-107); Globulin 2.6 g/dL (1.3-4.6); Glomerular Filtration Rate 64.5 mL/min (90-130); Glucose 93 mg/dL (65-115); Osmolality Calculated 294 mOsm/kg (285-295); Potassium 4.3 mmol/L (3.5-5.1); Sodium 141 mmol/L (136-145); Total Bilirubin 0.2 mg/dL (0.15-1.2); Total Protein 6.7 g/dL (6.6-8.7)
[2023-11-14 15:01] LABS: 25 Hydroxy Vitamin D 57 ng/mL (30-100)
== END 2023-11-23 23:55 | disposition home or self-care (01) ==
PROVIDERS: Nurse Practitioner Family; PCP Family Medicine; Visit Provider Internal Medicine Medical Oncology
DX: C41.9 Malignant neoplasm of bone and articular cartilage, unspecified (principal); E55.9 Vitamin D deficiency, unspecified; C50.919 Malignant neoplasm of unspecified site of unspecified female breast; G89.29 Other chronic pain; M81.0 Age-related osteoporosis without current pathological fracture
CPT/HCPCS: 36415; 80053; 82306; 85025; 99214

== ENCOUNTER → 2023-12-05 08:55 | Outpatient (BNVA) | payer MEDICARE, MEDICAID, SELFPAY | PROVIDERS: PCP Family Medicine; Visit Provider Internal Medicine | DX: M81.0 Age-related osteoporosis without current pathological fracture (principal); E55.9 Vitamin D deficiency, unspecified; S22.080D Wedge compression fracture of T11-T12 vertebra, subsequent encounter for fracture with routine healing; Z98.890 Other specified postprocedural states; Z91.81 History of falling | CPT/HCPCS: 99214 ==

== ENCOUNTER 2023-12-12 14:46 | Oncology outpatient (recurring) (ONCR) | payer MEDICARE, MEDICAID, SELFPAY ==
[2023-12-12] MEDS: romosozumab-aqqg 210 mg/2.34 mL syr SUBCUT (15:40)
[2023-12-12 16:09] VITALS: BP 107/89; PULSE 63; RESP 16; TEMP 36.4; O2SAT 96
== END 2023-12-23 23:59 | disposition home or self-care (01) ==
PROVIDERS: PCP Family Medicine; Visit Provider Internal Medicine Medical Oncology
DX: C41.9 Malignant neoplasm of bone and articular cartilage, unspecified (principal); E55.9 Vitamin D deficiency, unspecified; C50.919 Malignant neoplasm of unspecified site of unspecified female breast; G89.29 Other chronic pain; M81.0 Age-related osteoporosis without current pathological fracture; Z45.2 Encounter for adjustment and management of vascular access device
CPT/HCPCS: 96372; J3111

== ENCOUNTER 2024-01-09 12:43 | Oncology outpatient (recurring) (ONCR) | payer MEDICARE, MEDICAID, SELFPAY ==
[2024-01-09 13:14] VITALS: BP 180/95; PULSE 77; RESP 18; TEMP 36.1; O2SAT 97
[2024-01-09] MEDS: romosozumab-aqqg 210 mg/2.34 mL syr SUBCUT (13:28)
== END 2024-01-23 23:59 | disposition home or self-care (01) ==
PROVIDERS: PCP Family Medicine; Visit Provider Internal Medicine Medical Oncology
DX: E55.9 Vitamin D deficiency, unspecified; M81.0 Age-related osteoporosis without current pathological fracture; Z79.899 Other long term (current) drug therapy; M47.814 Spondylosis without myelopathy or radiculopathy, thoracic region; G89.29 Other chronic pain
CPT/HCPCS: 72072; 96401; 99214; J3111

== ENCOUNTER 2024-01-24 14:27 | Outpatient (CLI) | payer MEDICARE, MEDICAID, SELFPAY ==
--- NOTE | 2024-01-24 15:15 | MR_ITS ---
WS: [id number] MRI THORACIC SPINE WITHOUT CONTRAST TECHNIQUE: Sagittal T1, T2 and STIR imaging. Axial T2 imaging. Noncontrast imaging obtained. CLINICAL INFORMATION: back pain COMPARISON: None. FINDINGS: Mild thoracic curve. Mild thoracic kyphosis. No acute appearing compression fractures. Moderate spond ylitic changes. Cord signal appears normal. Normal CSF pulsation artifact in the dorsal spinal canal. Chronic compression with prior kyphoplasty changes at T11. Tiny RIGHT paracentral protrusion T5-T6 with slight contact of the thoracic cord. Tiny shallow centra l protrusion T7-T8. Mild RIGHT T8-T9, RIGHT T9-10, and bilateral T10-11 bony foraminal narrowing. Moderate facet arthropathy mid and lower thoracic spine.Adrenal glands are normal. Normal paravertebr al soft tissues. Slightly ectatic proximal descending thoracic aorta measuring 3.0 cm unchanged since the CT 07/02/2023 MR/MR thoracic spin wo con* [id number] IMPRESSION: 1. Prior kyphoplasty changes at T11 with minimal retropulsion of the posterior superior cortex. This appears slightly improved compared to 09/20/2022. No sign ificant central canal stenosis. 2. Mild thoracic kyphosis. No acute appearing compression fractures. 3. Moderate spondylitic changes. 4. A few tiny disc protrusions described above. Unchanged compared to previous 5. Mild RIGHT T8-T9, RIGHT T9-10, and bilateral T10-11 bony foraminal narrowin g. 6. No other acute findings.
== END 2024-01-24 14:28 | disposition home or self-care (01) ==
LOC: RAD 14:28
PROVIDERS: PCP Family Medicine; Visit Provider Orthopaedic Surgery
DX: M46.94 Unspecified inflammatory spondylopathy, thoracic region (principal); S22.080S Wedge compression fracture of T11-T12 vertebra, sequela; X58.XXXA Exposure to other specified factors, initial encounter
CPT/HCPCS: 72146

== ENCOUNTER → 2024-01-30 14:06 | Outpatient (BNVA) | payer MEDICARE, MEDICAID, SELFPAY | PROVIDERS: PCP Family Medicine; Visit Provider Orthopaedic Surgery | DX: Z09 Encounter for follow-up examination after completed treatment for conditions other than malignant neoplasm (principal) | CPT/HCPCS: 99214 ==

== ENCOUNTER 2024-02-07 10:07 | Oncology outpatient (recurring) (ONCR) | payer MEDICARE, MEDICAID, SELFPAY ==
[2024-02-07 10:23] VITALS: BP 160/89; PULSE 64; RESP 16; TEMP 36.5; O2SAT 98
[2024-02-07] MEDS: romosozumab-aqqg 210 mg/2.34 mL syr SUBCUT (10:25)
== END 2024-02-22 23:59 | disposition home or self-care (01) ==
LOC: ONCMED 10:08
PROVIDERS: PCP Family Medicine; Visit Provider Internal Medicine Medical Oncology
DX: M81.0 Age-related osteoporosis without current pathological fracture (principal); Z79.899 Other long term (current) drug therapy
CPT/HCPCS: 96372; J3111

== ENCOUNTER 2024-03-05 12:52 | Oncology outpatient (recurring) (ONCR) | payer MEDICARE, MEDICAID, SELFPAY ==
[2024-03-05] MEDS: romosozumab-aqqg 210 mg/2.34 mL syr SUBCUT (13:35)
[2024-03-05 13:40] VITALS: BP 167/89; PULSE 66; RESP 18; TEMP 36.4; O2SAT 98
== END 2024-03-24 23:59 | disposition home or self-care (01) ==
PROVIDERS: PCP Family Medicine; Visit Provider Internal Medicine Medical Oncology
DX: M81.0 Age-related osteoporosis without current pathological fracture (principal); Z79.899 Other long term (current) drug therapy
CPT/HCPCS: 96401; J3111

== ENCOUNTER → 2024-03-16 12:39 | Outpatient (BNVA) | payer MEDICARE, MEDICAID, SELFPAY | PROVIDERS: PCP Nurse Practitioner Family; Visit Provider Internal Medicine | DX: E55.9 Vitamin D deficiency, unspecified (principal); M81.0 Age-related osteoporosis without current pathological fracture; R79.89 Other specified abnormal findings of blood chemistry; E78.5 Hyperlipidemia, unspecified | CPT/HCPCS: 36415; 80053; 82306 ==

== ENCOUNTER 2024-04-02 13:00 | Oncology outpatient (recurring) (ONCR) | payer MEDICARE, MEDICAID, SELFPAY ==
--- NOTE | 2024-03-31 14:18 | PC.NURSE ---
patient 2 days early for treatment, insurance will not cover, patient rescheduled for 04/02/24
[2024-04-02] MEDS: romosozumab-aqqg 210 mg/2.34 mL syr SUBCUT (13:40)
== END 2024-04-24 23:59 | disposition home or self-care (01) ==
PROVIDERS: PCP Nurse Practitioner Family; Visit Provider Internal Medicine Medical Oncology
DX: Z53.9 Procedure and treatment not carried out, unspecified reason; M81.0 Age-related osteoporosis without current pathological fracture; Z79.899 Other long term (current) drug therapy
CPT/HCPCS: 96372; J3111

== ENCOUNTER 2024-05-19 12:38 | Outpatient (CLI) | payer MEDICARE, MEDICAID, SELFPAY ==
[2024-05-19 13:24] LABS: Basophils % 0.4 %; Eosinophils # 0.1 10^3/uL (0.0-0.8); Eosinophils % 2.1 %; Hematocrit 40.6 % (36-47); Lymphocytes % 35.8 %; Mean Corpuscular HGB Conc 32.3 g/dL (30-55); Mean Corpuscular Hemoglobin 30.5 pg (27-33); Mean Corpuscular Volume 94.6 fl (85-98); Mean Platelet Volume 9.2 fL (7.4-10.4); Monocytes # 0.4 10^3/uL (0.2-0.9); Monocytes % 6.6 %; Neutrophils # 3.09 10^3/uL (1.8-7.7); Neutrophils % 54.9 %; Nucleated Red Blood Cells % 0 %; Platelet Count 211 10^3/cmm (157-399); Red Blood Count 4.29 10^6/uL (3.85-5.65); White Blood Count 5.62 10^3/uL (3.29-11.43)
[2024-05-19 13:39] LABS: Alanine Aminotransferase 10 U/L (0-33); Alkaline Phosphatase 70 U/L (35-105); Blood Urea Nitrogen 20 mg/dL (6-20); Calcium 9.2 mg/dL (8.5-10.5); Carbon Dioxide 26 mmol/L (22-29); Chloride 102 mmol/L (98-107); Globulin 2.8 g/dL (1.3-4.6); Glomerular Filtration Rate 86.2 mL/min (90-130); Glucose 90 mg/dL (65-115); Osmolality Calculated 288 mOsm/kg (285-295); Sodium 138 mmol/L (136-145); Total Bilirubin 0.2 mg/dL (0.15-1.2); Total Protein 6.8 g/dL (6.6-8.7)
[2024-05-19 13:43] LABS: Anion Gap 14.1 (5-19); Aspartate Amino Transferase 17 U/L (0-32); Potassium 4.1 mmol/L (3.5-5.1)
[2024-05-19 14:00] LABS: 25 Hydroxy Vitamin D 84 ng/mL (30-100); Alanine Aminotransferase 11 U/L (0-33); Albumin Level 4.4 g/dL (3.5-5.2); Alkaline Phosphatase 75 U/L (35-105); Anion Gap 13.8 (5-19); Aspartate Amino Transferase 14 U/L (0-32); Blood Urea Nitrogen 20 mg/dL (6-20); Calcium 9.6 mg/dL (8.5-10.5); Carbon Dioxide 28 mmol/L (22-29); Chloride 101 mmol/L (98-107); Globulin 2.4 g/dL (1.3-4.6); Glomerular Filtration Rate 86.2 mL/min (90-130); Glucose 81 mg/dL (65-115); Osmolality Calculated 290 mOsm/kg (285-295); Potassium 3.8 mmol/L (3.5-5.1); Sodium 139 mmol/L (136-145); Total Bilirubin 0.2 mg/dL (0.15-1.2); Total Protein 6.8 g/dL (6.6-8.7)
== END 2024-05-19 12:39 | disposition home or self-care (01) ==
LOC: LAB 12:40
PROVIDERS: Nurse Practitioner Family; PCP Nurse Practitioner Family; Visit Provider Internal Medicine
DX: E55.9 Vitamin D deficiency, unspecified (principal); M81.0 Age-related osteoporosis without current pathological fracture; C50.919 Malignant neoplasm of unspecified site of unspecified female breast
CPT/HCPCS: 36415; 80053; 82306; 85025

== ENCOUNTER 2024-05-19 12:59 | Oncology outpatient (recurring) (ONCR) | payer MEDICARE, MEDICAID, SELFPAY ==
[2024-05-19] MEDS: romosozumab-aqqg 210 mg/2.34 mL syr SUBCUT (15:41)
== END 2024-05-22 23:59 | disposition home or self-care (01) ==
PROVIDERS: PCP Nurse Practitioner Family; Visit Provider Internal Medicine Medical Oncology
DX: M81.0 Age-related osteoporosis without current pathological fracture (principal); Z79.899 Other long term (current) drug therapy
CPT/HCPCS: 36415; 96372; J3111

== ENCOUNTER 2024-06-16 13:49 | Oncology outpatient (recurring) (ONCR) | payer MEDICARE, MEDICAID, SELFPAY ==
[2024-06-16] MEDS: romosozumab-aqqg 210 mg/2.34 mL syr SUBCUT (14:02)
[2024-06-16 14:03] VITALS: BP 151/84; PULSE 78; RESP 18; TEMP 36.4; O2SAT 97
== END 2024-06-22 23:59 | disposition home or self-care (01) ==
PROVIDERS: PCP Nurse Practitioner Family; Visit Provider Internal Medicine Medical Oncology
DX: M81.0 Age-related osteoporosis without current pathological fracture (principal); Z79.899 Other long term (current) drug therapy
CPT/HCPCS: 96401; J3590

== ENCOUNTER 2024-07-14 13:43 | Oncology outpatient (recurring) (ONCR) | payer MEDICARE, MEDICAID, SELFPAY ==
[2024-07-14] MEDS: romosozumab-aqqg 210 mg/2.34 mL syr SUBCUT (14:01)
== END 2024-07-22 23:59 | disposition home or self-care (01) ==
LOC: ONCMED 13:43
PROVIDERS: PCP Nurse Practitioner Family; Visit Provider Internal Medicine Medical Oncology
DX: M81.0 Age-related osteoporosis without current pathological fracture (principal); Z79.899 Other long term (current) drug therapy
CPT/HCPCS: 96372; J3590

== ENCOUNTER 2024-08-11 13:48 | Oncology outpatient (recurring) (ONCR) | payer MEDICARE, MEDICAID, SELFPAY ==
[2024-08-11 14:18] VITALS: BP 139/83; PULSE 75; RESP 17; TEMP 36.3; O2SAT 95
[2024-08-11] MEDS: romosozumab-aqqg 210 mg/2.34 mL syr SUBCUT (14:29)
[2024-08-11 14:30] VITALS: BP 124/78; PULSE 74; RESP 18; TEMP 35.9; O2SAT 97
== END 2024-08-22 23:59 | disposition home or self-care (01) ==
LOC: ONCMED 13:48
PROVIDERS: PCP Nurse Practitioner Family; Visit Provider Internal Medicine Medical Oncology
DX: M81.0 Age-related osteoporosis without current pathological fracture (principal); Z79.899 Other long term (current) drug therapy
CPT/HCPCS: 96401; J3590

== ENCOUNTER 2024-09-08 14:34 | Oncology outpatient (recurring) (ONCR) | payer MEDICARE, MEDICAID, SELFPAY ==
[2024-09-08] MEDS: romosozumab-aqqg 210 mg/2.34 mL syr SUBCUT (15:06)
== END 2024-09-21 23:59 | disposition home or self-care (01) ==
PROVIDERS: PCP Nurse Practitioner Family; Visit Provider Internal Medicine Medical Oncology
DX: M81.0 Age-related osteoporosis without current pathological fracture (principal); Z79.899 Other long term (current) drug therapy
CPT/HCPCS: 96401; J3590

== ENCOUNTER 2024-11-16 08:46 | Oncology outpatient (recurring) (ONCR) | payer MEDICARE, MEDICAID, SELFPAY ==
[2024-11-16 09:16] LABS: Hematocrit 41.3 % (36-47); Hemoglobin 13.50 g/dL (11.27-16.99); Mean Corpuscular HGB Conc 32.7 g/dL (30-55); Mean Corpuscular Hemoglobin 30.3 pg (27-33); Mean Corpuscular Volume 92.6 fl (85-98); Nucleated Red Blood Cells % 0 %; Platelet Count 187 10^3/cmm (157-399); Red Blood Count 4.46 10^6/uL (3.85-5.65); White Blood Count 6.19 10^3/uL (3.29-11.43)
[2024-11-16 09:45] LABS: Alanine Aminotransferase 9 U/L (0-33); Albumin Level 4.3 g/dL (3.5-5.2); Alkaline Phosphatase 73 U/L (35-105); Anion Gap 13.3 (5-19); Aspartate Amino Transferase 17 U/L (0-32); Blood Urea Nitrogen 19 mg/dL (6-20); Calcium 9.5 mg/dL (8.5-10.5); Carbon Dioxide 28 mmol/L (22-29); Chloride 106 mmol/L (98-107); Creatinine Clr Calc Pharmacy 77.7436; Globulin 2.5 g/dL (1.3-4.6); Glucose 110 mg/dL (65-115); Osmolality Calculated 299 mOsm/kg (285-295); Potassium 4.3 mmol/L (3.5-5.1); Sodium 143 mmol/L (136-145); Total Protein 6.8 g/dL (6.6-8.7)
== END 2024-11-22 23:59 | disposition home or self-care (01) ==
PROVIDERS: Nurse Practitioner; PCP Nurse Practitioner Family; Visit Provider Internal Medicine Medical Oncology
DX: Z08 Encounter for follow-up examination after completed treatment for malignant neoplasm (principal); Z85.3 Personal history of malignant neoplasm of breast; Z85.830 Personal history of malignant neoplasm of bone; M81.0 Age-related osteoporosis without current pathological fracture; Z92.21 Personal history of antineoplastic chemotherapy; Z92.3 Personal history of irradiation
CPT/HCPCS: 36415; 80053; 83615; 85025; 99214

== ENCOUNTER 2024-12-02 09:43 | Oncology outpatient (recurring) (ONCR) | payer MEDICARE, MEDICAID, SELFPAY | END 2024-12-22 23:59 | disposition home or self-care (01) | PROVIDERS: PCP Nurse Practitioner Family; Visit Provider Internal Medicine | DX: Z08 Encounter for follow-up examination after completed treatment for malignant neoplasm (principal); Z85.3 Personal history of malignant neoplasm of breast; Z85.830 Personal history of malignant neoplasm of bone; M81.0 Age-related osteoporosis without current pathological fracture; Z92.21 Personal history of antineoplastic chemotherapy; Z92.3 Personal history of irradiation; Z79.899 Other long term (current) drug therapy | CPT/HCPCS: 96372; J3590 ==

== ENCOUNTER → 2024-12-17 08:55 | Outpatient (BNVA) | payer MEDICARE, MEDICAID, SELFPAY | PROVIDERS: PCP Nurse Practitioner Family; Visit Provider Student in an Organized Health Care Education/Training Program | DX: K21.9 Gastro-esophageal reflux disease without esophagitis (principal) | CPT/HCPCS: 99204 ==

== ENCOUNTER 2024-12-21 10:43 | Day surgery (SDC) | payer MEDICARE, MEDICAID, SELFPAY ==
[2024-12-21 10:57] VITALS: BMI 24.8
[2024-12-21 11:06] VITALS: BP 157/106; PULSE 76; RESP 18; TEMP 36.4; O2SAT 94
--- NOTE | 2024-12-21 11:20 | ANES.PREANE2 ---
Pre-Anesthetic Assessment Height/Weight: Height 1.68 m Weight 69.853 kg Temp Pulse Resp BP Pulse Ox O2 Del Method 97.5 F L 76 18 157/106 94 Room Air 12/21/24 11:06 12/21/24 11:06 12/21/24 11:06 12/21/24 11:06 12/21/24 11:06 12/21/24 11:06 Preop Diagnosis: GERD Operation Date: 12/21/24 12:15 Proposed Procedures p EGD EGD with Biopsy 30758 K29.70 K21.00(Not Applicable) - Janes Warren MD Familial anesthetic complications: none Was Beta Sylwia taken within 24 hours: N/A Was Clonidine taken within 24 hours: N/A Last intake: Intake Last Liquid Date 12/20/24 Last Liquid Time 23:00 Last Solid Date 12/20/24 Last Solid Time 20:00 Social Tobacco (1 PPD x 30 y) Exam alert, oriented x 3, clear to auscultation bilaterally and regular rate & rhythm Airway Submandibular: within normal limits Cervical ROM: within normal limits Mallampati: Class I Comments: Comments: upper/lower dentures History/ROS No significant history except as noted Pulmonary Chronic Obstructive Pulmonary Disease CV/HEM Hypertension denies cp None reported Hepatic None reported GI Gastroesophageal Reflux Disease Metabolic Morbid Obesity breast ca Musc/skel Osteoarthritis/DJD Neuropsych None reported Anesthetic Plan ASA status: 3 Anesthesia: MAC Risk of > 500 ml blood loss (7ml/kg in children): No Medications/Allergies Home Medications ?Medication ?Instructions ?Recorded ?Confirmed ?Last Taken ?Type mv-min-vit C 250 po-vhahyn-efjth 1 tab PO DAILY 09/15/22 12/17/24 12/20/24 History HCl-herb 124 12.5 mg chewable tablet (Immune Support) nystatin 100,000 unit/gram topical 1 applic topical TID PRN rash #30 08/06/24 12/21/24 Unknown Rx cream grams oxycodone 15 mg tablet 15 mg PO Q6H pain 30 days #120 tabs 12/08/24 12/17/24 12/21/24 Rx atorvastatin 20 mg tablet 20 mg PO DAILY 12/17/24 12/17/24 12/20/24 History cholecalciferol (vitamin D3) 1,250 1,250 mcg PO .WEEKLY 12/17/24 12/17/24 12/20/24 History mcg (50,000 unit) capsule dexlansoprazole 60 mg 60 mg PO QPM 12/17/24 12/17/24 12/20/24 History capsule,biphase delayed release famotidine 20 mg tablet 20 mg PO DAILY 12/17/24 12/17/24 12/20/24 History lisinopril 40 mg tablet 40 mg PO DAILY 12/17/24 12/17/24 12/20/24 History meloxicam 15 mg tablet 15 mg PO DAILY 12/17/24 12/21/24 Unknown History potassium chloride 20 mEq 20 meq PO DAILY 12/17/24 12/17/24 12/20/24 History tablet,extended release(part/cryst) venlafaxine 150 mg 150 mg PO DAILY 12/17/24 12/17/24 12/20/24 History capsule,extended release 24 hr Allergies Allergy/AdvReac Type Severity Reaction Status Date / Time aluminum hydroxide (From Allergy Unknown ALGY-Rash Verified 12/21/24 11:00 Maalox Advanced) calcium carbonate (From Allergy Unknown ALGY-Rash Verified 12/21/24 11:00 Maalox Advanced) diphenhydramine (From Allergy Unknown ALGY-Rash Verified 12/21/24 11:00 Benadryl) lidocaine Allergy Unknown ALGY-Rash Verified 12/21/24 11:00 magnesium hydroxide (From Allergy Unknown ALGY-Rash Verified 12/21/24 11:00 Maalox Advanced) simethicone (From Maalox Allergy Unknown ALGY-Rash Verified 12/21/24 11:00 Advanced) Current Medications Generic Name Dose Route Start Last Admin Trade Name Freq PRN Reason Stop Dose Admin Sodium Chloride 1,000 mls @ 15 mls/hr 12/21/24 11:04 12/21/24 11:14 Sodium Chloride 0.9% IV 12/22/24 11:03 15 mls/hr .Q24H PRN Administration COLONOSCOPY FLUIDS PFSH Anesthesia Medical History Cystitis cystica Urolithiasis History of nephrolithiasis Cystitis Chronic steroid use Depression Hyperlipidemia Degenerative arthritis Gastroesophageal reflux disease with esophagitis without hemorrhage Bilateral malignant neoplasm of breast in female, unspecified estrogen receptor status, unspecified site of breast Chronic bilateral low back pain with bilateral sciatica Walls's sarcoma Surgical History History of surgery on right wrist History of tubal ligation History of excision of mass (09/2016) 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 History of bilateral mastectomy History of delivery x 2 Family History Father , IN HIS 30'S Accident Mother , AT 65 Cancer Other Rheumatoid arthritis Stroke Social History Smoking and tobacco/nicotine status: former use of tobacco/nicotine (quit 7 months ago) Alcohol intake: never Substance/Drug Use: never Marital status: Current occupational status: disabled
--- NOTE | 2024-12-21 11:30 | W.PM.OPSUD ---
Surgery/Procedure H&P Update DATE OF PROCEDURE: December 21, 2024 DATE H&P PERFORMED: 12/17/24 H&P UPDATE INFORMATION: I have reviewed H&P completed within last 30 days, I have examined patient prior to procedure, No changes to prior documentation and Risks and benefits of the procedure reviewed PREOP DIAGNOSIS: GERD PLANNED PROCEDURE: Operation Date: 12/21/24 12:15 Proposed Procedures p EGD EGD with Biopsy [id number] K29.70 K21.00(Not Applicable) - Janes Warren MD
[2024-12-21 11:58] VITALS: BP 146/79; PULSE 62; RESP 10; TEMP 36.8; O2SAT 96
[2024-12-21 12:10] VITALS: BP 151/85; PULSE 79; RESP 12; O2SAT 96
--- NOTE | 2024-12-21 12:25 | ANE.PACU2 ---
Inpatient post-anesthesia follow up: Airway intact: Yes Vital signs: Temperature 98.2 F Pulse Rate 79 Respiratory Rate 12 Blood Pressure 151/85 Pulse Oximetry 96 Oxygen Delivery Me thod Room Air Oxygen Flow Rate Fraction of Inspir ed Oxygen Hydration adequate: Yes Nausea and vomiting: No Pain level: 1 Mental status: Baseline
== END 2024-12-21 12:25 | disposition home or self-care (01) ==
PROVIDERS: PCP Family Medicine; Visit Provider Student in an Organized Health Care Education/Training Program
PROC: 0DJ08ZZ Inspection of Upper Intestinal Tract, Via Natural or Artificial Opening Endoscopic (ICD-10-PCS; principal; 2024-12-21 12:15)
DX: K21.9 Gastro-esophageal reflux disease without esophagitis (principal); K44.9 Diaphragmatic hernia without obstruction or gangrene; K29.50 Unspecified chronic gastritis without bleeding; J44.9 Chronic obstructive pulmonary disease, unspecified; I10 Essential (primary) hypertension; E66.01 Morbid (severe) obesity due to excess calories; Z68.24 Body mass index [BMI] 24.0-24.9, adult; Z85.3 Personal history of malignant neoplasm of breast; Z79.891 Long term (current) use of opiate analgesic; F32.A Depression, unspecified; E78.5 Hyperlipidemia, unspecified; Z87.891 Personal history of nicotine dependence
CPT/HCPCS: 43239; 88305; 88342; J2704; J7030

== ENCOUNTER → 2025-01-04 14:18 | Outpatient (BNVA) | payer MEDICARE, MEDICAID, SELFPAY | PROVIDERS: PCP Family Medicine; Visit Provider Student in an Organized Health Care Education/Training Program | DX: Z09 Encounter for follow-up examination after completed treatment for conditions other than malignant neoplasm (principal); R03.0 Elevated blood-pressure reading, without diagnosis of hypertension | CPT/HCPCS: 99213 ==

== ENCOUNTER → 2025-01-06 11:33 | Outpatient (BNVA) | payer MEDICARE, MEDICAID, SELFPAY | PROVIDERS: PCP Family Medicine; Visit Provider Internal Medicine | DX: M81.0 Age-related osteoporosis without current pathological fracture (principal); S22.080D Wedge compression fracture of T11-T12 vertebra, subsequent encounter for fracture with routine healing; Z98.890 Other specified postprocedural states; E55.9 Vitamin D deficiency, unspecified; X58.XXXD Exposure to other specified factors, subsequent encounter; E11.9 Type 2 diabetes mellitus without complications | CPT/HCPCS: 36415; 80053; 82306; 99214 ==

== ENCOUNTER → 2025-01-28 10:43 | Outpatient (BNVA) | payer MEDICARE, MEDICAID, SELFPAY | PROVIDERS: PCP Family Medicine; Visit Provider Student in an Organized Health Care Education/Training Program | DX: Z12.11 Encounter for screening for malignant neoplasm of colon (principal); R12 Heartburn; K21.9 Gastro-esophageal reflux disease without esophagitis | CPT/HCPCS: 99204 ==

== ENCOUNTER → 2025-02-01 11:00 | Outpatient (BNVA) | payer MEDICARE, MEDICAID, SELFPAY | PROVIDERS: PCP Family Medicine; Visit Provider Nurse Practitioner Family | DX: R73.09 Other abnormal glucose (principal) | CPT/HCPCS: 83036 ==